=== PATIENT | female | born 1935 | race African-American/Black ===

== ENCOUNTER 2017-10-13 01:01 | Inpatient (IN) | payer OTHER ==
[~2017-10-13] VITALS: Ht 162.6 cm; Wt 68.0 kg
[2017-10-13] VITALS (8 sets, daily range): BP systolic 132–232; BP diastolic 54–127
--- NOTE | ~2017-10-13 | 2DMMODE ---
[facility] [address] [address] [facility] [place] [address] 2 D/M-MODE ECHOCARDIOGRAM Name: DIAHARLEEN David Room #: 364-P [facility] IN .R.#: [id number] Admission: 10/13/17 Attend Phys: Kevin Saucedo MD Discharge: Date of : 36 Date of Service: 10/14/17 1034 Report #: [id number] THIS REPORT FOR: //name// APPROVED REPORT Study performed: 10/13/2017 13:27:01 EXAM: Comprehensive 2D, Doppler, and color-flow Echocardiogram Patient Location: Bedside Room #: 364 Status: routine BSA: 1.73 HR: 80 bpm BP: 146/77 mmHg Other Information Study Quality: Adequate Indications Congestive Heart Failure Atrial Fibrillation Hypertension/HDD 2D Dimensions RVDd: 31.41 mm LVEF(%): 60.61 (>50%) IVSd: 12.61 (7-11mm) LVOT Diam: 17.75 (18-24mm) LVDd: 38.81 mm PWd: 11.42 (7-11mm) Ascending Ao: 29.85 (22-36mm) LVDs: 26.44 (25-40mm) Aortic Root: 29.32 mm IVC: 18.00 mm Wiggins's LVEF: 60.61 % Volumes Left Atrial Volume (Systole) Single Plane 4CH: 77.07 mL Single Plane 2CH: 37.59 mL LA ESV Index: 35.00 mL/m2 Aortic Valve AoV Peak Tono.: 1.44 m/s AO Peak Gr.: 8.30 mmHg LVOT Max P.95 mmHg LVOT Max V: 0.99 m/s SAMI Vmax: 1.71 cm2 Mitral Valve MV Decel. Time: 152.49 ms [facility] [place] [address] 2 D/M-MODE ECHOCARDIOGRAM Name: HARLEEN ALVARES David Room #: 364[facility] IN ..#: [id number] Admission: 10/13/17 Attend Phys: Kevin Saucedo MD Discharge: Date of : 36 Date of Service: 10/14/17 1034 Report #: [id number] E Max Tono.: 1.54 m/s Pulmonary Valve PV Peak Tono.: 1.09 m/s PV Peak Gr.: 4.73 mmHg Tricuspid Valve TR Peak Tono.: 2.95 m/s RAP Estimate: 5.00 mmHg TR Peak Gr.: 34.83 mmHg PA Pressure: 40.00 mmHg Left Ventricle The left ventricle is normal size. Mild concentric left ventricular hypertrophy. The left ventricular systolic function is normal. The left ventricular ejection fraction is within the normal range. LVEF is 60-65%. This study is not technically sufficient to allow evaluation of the LV diastolic function due to atrial fibrillation. Right Ventricle The right ventricle is normal size. The right ventricular systolic function is normal. Atria Left atrium is mildly dilated. Right atrium is mildly dilated. Aortic Valve The aortic valve is normal in structure. No aortic regurgitation is present. There is no aortic valvular stenosis. Mitral Valve The mitral valve is normal in structure. Moderate mitral regurgitation. No evidence of mitral valve stenosis. Tricuspid Valve The tricuspid valve is normal in structure. Mild tricuspid regurgitation. PAP is estimated at 40 mmHg. Pulmonic Valve Pulmonic valve is not well visualized. Mild pulmonic regurgitation. Great Vessels The aortic root is normal in size. IVC is normal in size and collapses >50% with inspiration. [facility] [address] [place] [address] 2 D/M-MODE ECHOCARDIOGRAM Name: HARLEEN ALVARES Room #: 364-P [facility] IN M.R.#: [id number] Admission: 10/13/17 Attend Phys: Kevin Saucedo MD Discharge: Date of : 36 Date of Service: 10/14/17 1034 Report #: [id number] Pericardium There is no pericardial effusion. <Conclusion> The left ventricle is normal size. Mild concentric left ventricular hypertrophy. LVEF is 60-65%. This study is not technically sufficient to allow evaluation of the LV diastolic function due to atrial fibrillation. Left atrium is mildly dilated. Right atrium is mildly dilated. There is no aortic valvular stenosis. Moderate mitral regurgitation. Mild tricuspid regurgitation. PAP is estimated at 40 mmHg. There is no pericardial effusion. <ELECTRONICALLY SIGNED> By: Jaylen Mcnulty MD, FACC 10/14/17 [phone] Jaylen Mcnulty MD, FACC /INF
--- NOTE | ~2017-10-13 | EKG ---
[address] [address] ELECTROCARDIOGRAM REPORT Name: HARLEEN ALVARES David Room #: 363-P ADM IN M.R.#: [id number] Admission: 10/13/17 Attend Phys: Kevin Saucedo MD Discharge: Date of : 36 Report #: [id number] THIS REPORT FOR: //name// 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
[~2017-10-13 01:01] MED LIST: EDARBYCLOR 40-1 EACH PO; HCTZ; LOTREL 10-20 M1 EACH PO; PHENERGAN 25 MG25 M1 PO; PROTONIX40 MG PO; ULTRAM 50MG TAB50 MG PO; ZOFRAN ODT4 MG PO
[2017-10-13 01:18] LABS: ABSOLUTE NEUTROPHILS 5.9 thou/uL (1.4-8.2); BASOPHILS 0.3 % (0.0-2.0); HEMATOCRIT 30.1 % (37.0-47.0); HEMOGLOBIN 10.4 gm/dL (12.0-15.0); LYMPHOCYTES 17.9 % (24.0-44.0); MCH 28.4 pg (26.0-34.0); MCHC 34.6 g/dL (28.0-37.0); MCV 82.1 fL (80.0-100.0); MONOCYTES 5.2 % (1.0-8.0); PLATELET COUNT 202 thou/uL (150-400); POLYS 75.6 % (36.0-66.0); RBC 3.66 mil/uL (4.20-5.00); RDW 15.6 % (10.5-14.5); WBC 7.8 thou/uL (4.0-11.0)
[2017-10-13] MEDS ORDERED: MUCINEX D ER 61 EACH PO (01:20)
[2017-10-13 01:26] LABS: ANION GAP 10 mmol/L (7-16); BUN 37 mg/dL (7-18); CALCIUM 9.8 mg/dL (8.5-10.1); CHLORIDE 98 mmol/L (98-107); CO2 32 mmol/L (21-32); GLUCOSE 145 mg/dL (74-106); POTASSIUM 3.1 mmol/L (3.5-5.1); SODIUM 140 mmol/L (136-145)
[2017-10-13 01:35] LABS: ALBUMIN 3.9 g/dL (3.4-5.0); LIPASE 255 U/L (73-393); SGOT 31 U/L (15-37); SGPT 46 U/L (30-65); TOTAL BILIRUBIN 0.6 mg/dL (<0.1-1.0); TOTAL PROTEIN 7.2 g/dL (6.4-8.2); TROPONIN-I < 0.04 ng/mL (<0.06)
[2017-10-13 02:03] LABS: URINE BILIRUBIN NEGATIVE (Negative); URINE BLOOD TRACE (Negative); URINE CLARITY CLEAR; URINE GLUCOSE-RANDOM* NEGATIVE (Negative); URINE KETONES NEGATIVE (Negative); URINE LEUKOCYTES-REFLEX NEGATIVE (Negative); URINE NITRITE-REFLEX NEGATIVE (Negative); URINE PROTEIN (DIPSTICK) TRACE (Negative); URINE UROBILINOGEN 0.2 E.U./dl (0.2-1.0)
[2017-10-13 02:04] LABS: URINE COLOR COLORLESS
[2017-10-13 07:44] LABS: CHOLESTEROL 224 mg/dL (<200); HDL CHOLESTEROL 76 mg/dL (>40); LDL CHOLESTEROL 136 mg/dL (<100); MAGNESIUM 1.9 mg/dL (1.8-2.4); TC:HDL 2.9 Ratio (Not establshd); TRIGLYCERIDE 62 mg/dL (<150); TROPONIN-I < 0.04 ng/mL (<0.06); VLDL 12 mg/dL (<40)
[2017-10-13 11:33] LABS: CALCIUM 9.4 mg/dL (8.5-10.1); CREATININE 1.8 mg/dL (0.6-1.0); POTASSIUM 3.1 mmol/L (3.5-5.1)
[2017-10-14 00:06] VITALS: BP 134/71
[2017-10-14 05:13] VITALS: BP 124/61
[2017-10-14 05:47] LABS: CREATININE 1.9 mg/dL (0.6-1.0); MAGNESIUM 1.9 mg/dL (1.8-2.4); POTASSIUM 3.3 mmol/L (3.5-5.1)
[2017-10-14 05:48] LABS: % SATURATION 20 % (20-39); IRON 47 ug/dL (50-170); TIBC 236 ug/dL (250-450)
[2017-10-14 06:15] LABS: FERRITIN 261 ng/mL (8-252)
[2017-10-14 08:17] VITALS: BP 172/82
[2017-10-14] MEDS ORDERED: DILTIAZEM 24HR180 M1 PO (09:05)
[2017-10-14] MEDS ORDERED: ELIQUIS2.5 MG PO (09:05)
[2017-10-14] MEDS ORDERED: METOPROLOL SUCC25 M1 PO (09:05)
[2017-10-14] MEDS ORDERED: LIPITOR 20 MG T20 M1 PO (09:05)
[2017-10-14 09:36] VITALS: BP 172/82
[2017-10-14 10:26] VITALS: BP 172/82
== END 2017-10-14 12:00 | disposition home or self-care (01) | DRG 308 ==
LOC: ER 01:01 → 3W 03:33 → EROBS 03:33 → 3W 04:12
PROVIDERS: Emergency Medicine; Hospitalist; Nurse Practitioner; Registered Nurse
DX: I48.0 Paroxysmal atrial fibrillation (principal); N17.0 Acute kidney failure with tubular necrosis; I16.1 Hypertensive emergency; I13.0 Hypertensive heart and chronic kidney disease with heart failure and stage 1 through stage 4 chronic kidney disease, or unspecified chronic kidney disease; I50.9 Heart failure, unspecified; G43.909 Migraine, unspecified, not intractable, without status migrainosus; K52.9 Noninfective gastroenteritis and colitis, unspecified; E87.6 Hypokalemia; J06.9 Acute upper respiratory infection, unspecified; Z66 Do not resuscitate; N18.9 Chronic kidney disease, unspecified; R16.0 Hepatomegaly, not elsewhere classified; E78.00 Pure hypercholesterolemia, unspecified; Z60.2 Problems related to living alone; D64.9 Anemia, unspecified; Z90.710 Acquired absence of both cervix and uterus; Z85.54 Personal history of malignant neoplasm of ureter; Z79.899 Other long term (current) drug therapy; Z88.8 Allergy status to other drugs, medicaments and biological substances; Z88.6 Allergy status to analgesic agent; Z87.891 Personal history of nicotine dependence
CPT/HCPCS: 10879

== ENCOUNTER 2017-12-06 08:05 | Inpatient (IN) | payer OTHER ==
[~2017-12-06] VITALS: Ht 162.6 cm; Wt 63.1 kg
--- NOTE | ~2017-12-06 | EKG ---
[place] [address] [facility] [place] [address] ELECTROCARDIOGRAM REPORT Name: HARLEEN ALVARES Room #: 350-P ADM IN M.R.#: [id number] Admission: 12/06/17 Attend Phys: Kevin Saucedo MD Discharge: Date of : 36 Report #: [id number] THIS REPORT FOR: //name// [facility] Test Date: 2017-12-08 Test Time: 07:55:19 Pat Name: HARLEEN ALVARES Department: Room: 350 P Gender: F [employer] Manager: ANNA : 1935 Requested By: Edwin Cornelius Order Number: [id number] MD: Walter Ibanez Measurements Intervals [place] Rate: 68 P: 54 [place]: 187 QRS: 28 QRSD: 75 T: 89 QT: 576 QTc: 613 Interpretive Statements Sinus rhythm Nonspecific ST and T wave abnormality Prolonged QT interval Compared to ECG 12/06/2017 08:26:27 Sinus rhythm has replaced atrial flutter Electronically Signed On 12-08-2017 8:14:11 FLOOR NURSE by Walter Ibanez [email or web address] <ELECTRONICALLY SIGNED> By: Walter Ibanez MD, [facility] 12/08/17 0814 [phone] Walter Ibanez MD, [facility] /EPI
--- NOTE | ~2017-12-06 | 2DMMODE ---
[facility] [address] [place] [address] 2 D/M-MODE ECHOCARDIOGRAM Name: HARLEEN ALVARES Room #: 350-P [facility] IN .R.#: [id number] Admission: 12/06/17 Attend Phys: Kevin Saucedo MD Discharge: Date of : 36 Date of Service: 12/07/17 1419 Report #: [id number] THIS REPORT FOR: //name// APPROVED REPORT Study performed: 12/07/2017 12:53:56 EXAM: Comprehensive 2D, Doppler, and color-flow Echocardiogram Patient Location: Bedside Room #: 350 Status: routine BSA: 1.68 HR: 62 bpm BP: 151/91 mmHg Other Information Study Quality: Good Indications Congestive Heart Failure Hypertension/HDD Stroke, Hx afib 2D Dimensions RVDd: 30.35 mm LVEF(%): 66.41 (>50%) IVSd: 12.84 (7-11mm) LVOT Diam: 19.53 (18-24mm) LVDd: 39.26 mm PWd: 12.61 (7-11mm) Ascending Ao: 31.45 (22-36mm) LVDs: 25.08 (25-40mm) Aortic Root: 30.38 mm IVC: 13.00 mm Wiggins's LVEF: 66.41 % Volumes Left Atrial Volume (Systole) Single Plane 4CH: 59.63 mL Single Plane 2CH: 88.79 mL LA ESV Index: 46.00 mL/m2 Aortic Valve AoV Peak Tono.: 1.19 m/s AO Peak Gr.: 5.71 mmHg LVOT Max P.25 mmHg LVOT Max V: 0.90 m/s SAMI Vmax: 2.26 cm2 Mitral Valve E/A Ratio: 2.8 [facility] [place] [address] 2 D/M-MODE ECHOCARDIOGRAM Name: HARLEEN ALVARES Room #: [address] [place] [address] IN M.R.#: [id number] Admission: 12/06/17 Attend Phys: Kevin Saucedo MD Discharge: Date of : 36 Date of Service: 12/07/17 1419 Report #: [id number] MV Decel. Time: 204.33 ms MV E Max Tono.: 1.19 m/s MV A Tono.: 0.42 m/s MV PHT: 59.26 ms IVRT: 93.43 ms Pulmonary Valve PV Peak Tono.: 0.84 m/s PV Peak Gr.: 2.85 mmHg Pulmonary Vein P Vein S: 0.30 m/s P Vein A: 0.15 m/s P Vein D: 0.46 m/s P Vein A Dur.: 106.1 msec P Vein S/D Ratio: 0.65 Tricuspid Valve TR Peak Tono.: 2.60 m/s RAP Estimate: 5.00 mmHg TR Peak Gr.: 27.00 mmHg PA Pressure: 32.00 mmHg Left Ventricle The left ventricle is normal size. Mild concentric left ventricular hypertrophy. Left ventricular systolic function is normal. LVEF is 50-55%. Transmitral Doppler flow pattern suggests restrictive physiology. Right Ventricle The right ventricle is normal size. The right ventricular systolic function is normal. Atria Left atrium is moderately dilated. No shunting by contrast bubble injection. Right atrium is dilated. Aortic Valve The aortic valve is normal in structure. No aortic regurgitation is present. There is no aortic valvular stenosis. Mitral Valve The mitral valve is normal in structure. Moderate mitral regurgitation. No evidence of mitral valve stenosis. Tricuspid Valve The tricuspid valve is normal in structure. Mild to moderate tricuspid regurgitation. PAP is estimated at 32 mmHg. Pulmonic Valve [address] [address] 2 D/M-MODE ECHOCARDIOGRAM Name: HARLEEN ALVARES Room #: 350-P [facility] IN ..#: [id number] Admission: 12/06/17 Attend Phys: Kevin Saucedo MD Discharge: Date of : 36 Date of Service: 12/07/17 1419 Report #: [id number] The pulmonary valve is normal in structure. Mild pulmonic regurgitation. Great Vessels The aortic root is normal in size. IVC is normal in size and collapses >50% with inspiration. Pericardium There is no pericardial effusion. <Conclusion> Left ventricular systolic function is normal. LVEF is 50-55%. Transmitral Doppler flow pattern suggests restrictive physiology. Left atrium is moderately dilated. No shunting by contrast bubble injection. The aortic valve is normal in structure. No aortic valvular stenosis or insufficiency. The mitral valve is normal in structure. Moderate mitral regurgitation. Mild to moderate tricuspid regurgitation. Pulmonary artery pressure estimated at 32 mmHg. There is no pericardial effusion. <ELECTRONICALLY SIGNED> By: Walter Ibanez MD, FACC 12/07/17 1419 1419 141 Walter Ibanez MD, FACC /INF
--- NOTE | ~2017-12-06 | EKG ---
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: [facility] : 1935 Requested By: Cm Manley Order Number: [id number] MD: Walter Ibanez Measurements Intervals [place] Rate: 101 P: [place]: QRS: 38 QRSD: 86 T: 225 QT: 333 QTc: 432 Interpretive Statements Atrial flutter with predominant 3:1 AV block Borderline repolarization abnormality Compared to ECG 10/13/2017 01:10:53 ST segment abnormality is less pronounced Electronically Signed On 12-06-2017 15:31:48 STORE TEAM MEMBER by Walter Ibanez [email or web address] <ELECTRONICALLY SIGNED> By: Walter Ibanez MD, [facility] 12/06/17 1531 5 5 Walter Ibanez MD, [facility] /EPI
--- NOTE | ~2017-12-06 | HC ---
[facility] [place] [address] CONSULTATION Name: HARLEEN ALVARES Room #: 350-P [facility] IN M.R.#: [id number] Admission: 12/06/17 Attend Phys: Kevin Saucedo MD Discharge: 12/09/17 Date of : 36 Report #: [id number] THIS REPORT FOR: //name// [facility] DATE OF SERVICE: 12/06/2017 HISTORY OF PRESENT ILLNESS: This is an 82-year-old female patient who was initially evaluated by me in the Emergency Room and subsequently was evaluated by me on the floor. This patient was discussed with the Emergency Room physician and the history the patient and the family provides is that around midnight last night, she had an acute onset of visual disturbances as well as some numbness and weakness on the left upper and left lower extremity. It came suddenly and spontaneously. No trauma was associated with it and the symptoms were at least moderately severe. This patient decided not to present to the Emergency Room that time, but subsequently decided to come to the Emergency Room. She decided to come to the Emergency Room when the patient did not become any better. REVIEW OF SYSTEMS: Indicate that this patient has a history of atrial fibrillation. She follows up with Dr. Mcnulty. She was prescribed Eliquis by Dr. Mcnulty, but the patient stopped taking that a long time ago because she indicated that she was bleeding from her teeth and that is the reason she stopped it. She is not complaining of any significant cardiac symptoms at the moment. To me at least she said she is not having any significant headache. Review of systems otherwise does not indicate any clinical stroke. She does have what looks like increased BUN and creatinine and her GFR is only 31. When she came in, her troponin was elevated, but she was not having any cardiac symptoms. Her 14-point review of system was carried out and was the relevant 14-point review of system in this patient. PAST MEDICAL HISTORY: Negative for any clinical CVA. FAMILY HISTORY: Negative for early age CVA. SOCIAL HISTORY: This patient has multiple members present. She has a history of smoking in the past and she does not use any alcohol. PHYSICAL EXAMINATION: Indicate she is alert. She is responsive. She can follow simple command. Her speech, concentration, fund of knowledge is at her baseline. Cranial nerve examinations 2-12 indicate that she has a pretty significant hemianopsia. Her strength on the left side looks unremarkable. She has a subjective decrease in pinprick. Her tone is symmetrical. She just does not coordinate very well on the left side. I tried to look at the fundus, but could not. There is no carotid bruit in this patient. Cardiac examinations [facility] [address] [place] [address] CONSULTATION Name: HARLEEN ALVARES Room #: 350-P [facility] IN M.R.#: [id number] Admission: 12/06/17 Attend Phys: Kevin Saucedo MD Discharge: 12/09/17 Date of : 36 Report #: [id number] indicate the patient has a history of atrial fibrillation and her EKG actually has shown atrial flutter. There is no respiratory difficulty. Her vital signs are mostly maintained with a blood pressure fluctuating to some extent and that was at 165/85, pulse was 91. Temperature was 98.1. I reviewed the patient's MRI. MRI does demonstrate an acute stroke on the right side, which will be correlating with the left-sided symptoms. IMPRESSION: 1. Cerebrovascular accident probably secondary to embolization from the heart. 2. Atrial fibrillation and flutter, probably causing the embolization. 3. Dense hemianopsia. RECOMMENDATIONS: This patient is not an intervention candidate. Her symptoms occurred at midnight and she is outside the TPA window. There is nothing to do with the thrombectomy on in this patient and therefore, she is not a candidate for thrombectomy. Main question is what to do with her anticoagulation. She is concerned with the bleeding from the teeth and she indicates that her 6 teeth need to be pulled. I discussed the patient with Dr. Medley who is covering for Dr. Mcnulty and we will put a consult with them and to address the question of anticoagulation. Her stroke is small and we should be able to anticoagulate earlier if necessary. I think we can wait for about 3 days and then anticoagulate at that time. The other possibility is that this patient's stroke is because of small vessel disease, but from symptom, it looks more like embolization and we should presume that it is because of embolization from heart. She will need an ophthalmology evaluation some time. I do not know if any brake operator heavy duty comes here or not. I will send a sed rate to exclude any chance of vasculitis. Presently, she appeared to be stable from cardiac perspective, but we need to address the question of anticoagulation in this patient over the long-term basis and she should follow up with electronics installer as an outpatient. I had an extensive discussion with the family and I discussed with them their options and all the above things, which has been summarized. They are agreeable with the plan. I suspect this patient is also going to need rehabilitation. This patient with a basal ganglion stroke can sometime become worse for the first 2-3 days and we will look for any worsening. Nothing can be done about that. Even with the present deficit, she will need a rehab and we will consult rehab physicians in that regard. More than 50 minutes of time was spent taking care of this patient today and majority of that time was spent counseling the family and the patient on above matters and coordinating her care. [facility] [address] [place] [address] CONSULTATION Name: HARLEEN ALVARES Room #: 350-P [facility] IN M.R.#: [id number] Admission: 12/06/17 Attend Phys: Kevin Saucedo MD Discharge: 12/09/17 Date of : 36 Report #: [id number] Thank you very much for this referral and if you have any questions, please feel free to contact me. <ELECTRONICALLY SIGNED> By: Hema Li MD 12/10/17 1145 1640 1908 Hema Li MD /nt
--- NOTE | ~2017-12-06 | HC ---
[facility] [address] [address] CONSULTATION Name: HARLEEN ALVARES Room #: 350-[facility] IN M.R.#: [id number] Admission: 12/06/17 Attend Phys: Kevin Saucedo MD Discharge: 12/09/17 Date of : 36 Report #: [id number] THIS REPORT FOR: //name// CC: Kevin Bustos [facility] DATE OF SERVICE: 12/07/2017 HISTORY OF PRESENT ILLNESS: An 82-year-old -[place] female admitted with left-sided weakness. She has a history of atrial fibrillation, but she was not taking her Eliquis secondary to pending dental work. Upon admission, she was diagnosed with an acute right basal ganglia CVA per MRI. Neurology has been involved. They noted some hemianopsia. She notes the left-sided numbness, weakness, continues. We are seeing her in rehabilitation medicine consultation. PAST MEDICAL HISTORY: Includes hypertension, atrial fibrillation, CHF, migraine, history of cataracts, uterine cancer with hysterectomy. PAST SURGICAL HISTORY: As noted above. MEDICATIONS: Please see the full medication listing. FAMILY HISTORY: Not pertinent. ALLERGIES: CODEINE, IODINE, MORPHINE, MEPERIDINE. SOCIAL HISTORY: House with significant other. Did not utilize gait aids. There is a railing of stairs. Sisters use to stay with her. She has involved family. HABITS: Tobacco abuse, but no use for greater than a year. REVIEW OF SYSTEMS: Did not offer any current complaints of chest pain, shortness of breath or abdominal discomfort. No focal extremity pain complaints. PHYSICAL EXAMINATION: GENERAL: An 82-year-old -[place] female, in no obvious distress. VITAL SIGNS: Last recorded temperature 98.6, pulse 86, respirations 16, blood pressure 151/91. NEUROLOGIC: She is alert, pleasant. Facies revealed some prior surgical scar, left lower face and lips. EOMs appeared to be full. She may have some left hemianopsia, but did reasonably well with visual field confrontation. EOMs appeared to be full. Functional range of motion of both upper extremities. She does have decreased coordination of the left upper extremity with agxtmt-gh-afec and fine finger dexterity. Strength is grade 4 to 4-/5 in the left compared to [facility] [address] [place] [address] CONSULTATION Name: HARLEEN ALVARES Room #: [facility] IN M.R.#: [id number] Admission: 12/06/17 Attend Phys: Kevin Saucedo MD Discharge: 12/09/17 Date of : 36 Report #: [id number] 4 to 4+ on the right. Left lower extremity is probably a grade 4 to 4- compared to the right, which is more of 4 to 4+. There is no clonus. Negative Rosas's. Sensory exam is reasonably intact to simultaneous stimulation. She is contact guard for sit to stand. She was mod assist for pericare and OT as well as mod assist for toilet transfers with decreased balance noted. ASSESSMENT: An 82-year-old female with following problems: 1. Right basal ganglia cerebrovascular accident. 2. Left hemiparesis. 3. Left hemianopsia, which appears better. 4. Balance deficits with functional mobility and ADL deficits. 5. Atrial fibrillation. 6. Hypertension. 7. Chronic kidney disease. 8. Elevated troponin. Cardiology is involved. EKG without acute abnormalities. 9. Hypokalemia. PLAN: The patient is a candidate for an acute in-hospital inpatient rehabilitation stay. The plan to transfer to the acute inpatient rehabilitation samson with medically cleared in a bed available. <ELECTRONICALLY SIGNED> By: Drake Contreras MD 12/15/17 1510 1247 0514 Drake Contreras MD /[facility]
[~2017-12-06 08:05] MED LIST changes: +DILTIAZEM 24HR180 M1 PO; +ELIQUIS2.5 MG PO; +LIPITOR 20 MG T20 M1 PO; +METOPROLOL SUCC25 M1 PO; +MUCINEX D ER 61 EACH PO
[2017-12-06 08:07] VITALS: BP 209/98
[2017-12-06] MEDS ORDERED: DILTIAZEM ER360 MG PO (08:12)
[2017-12-06 08:17] LABS: ABSOLUTE NEUTROPHILS 4.1 thou/uL (1.4-8.2); BASOPHILS 0.6 % (0.0-2.0); EOSINOPHILS 1.4 % (0.0-3.0); HEMATOCRIT 36.1 % (37.0-47.0); HEMOGLOBIN 12.3 gm/dL (12.0-15.0); LYMPHOCYTES 24.5 % (24.0-44.0); MCH 27.6 pg (26.0-34.0); MCHC 34.1 g/dL (28.0-37.0); MCV 81.2 fL (80.0-100.0); MONOCYTES 8.7 % (1.0-8.0); PLATELET COUNT 210 thou/uL (150-400); POLYS 64.8 % (36.0-66.0); RBC 4.45 mil/uL (4.20-5.00); RDW 16.3 % (10.5-14.5); WBC 6.4 thou/uL (4.0-11.0)
[2017-12-06 08:29] LABS: ANION GAP 10 mmol/L (7-16); BUN 27 mg/dL (7-18); CHLORIDE 99 mmol/L (98-107); CO2 31 mmol/L (21-32); CREATININE 1.9 mg/dL (0.6-1.0); GLUCOSE 120 mg/dL (74-106); POTASSIUM 3.4 mmol/L (3.5-5.1); SODIUM 140 mmol/L (136-145)
[2017-12-06 08:35] LABS: APTT 22.7 Seconds (24.5-32.8); PROTIME 10.4 Seconds (9.3-11.4)
[2017-12-06 08:38] LABS: ALBUMIN 4.1 g/dL (3.4-5.0); MAGNESIUM 2.1 mg/dL (1.8-2.4); SGOT 42 U/L (15-37); SGPT 83 U/L (30-65); TOTAL BILIRUBIN 0.7 mg/dL (<0.1-1.0); TOTAL PROTEIN 7.7 g/dL (6.4-8.2)
[2017-12-06 08:41] LABS: TROPONIN-I 1.56 ng/mL (<0.06)
[2017-12-06] MEDS ORDERED: EDARBYCLOR 40-1 EACH PO (09:31)
[2017-12-06 12:31] VITALS: BP 165/85
[2017-12-06 12:50] VITALS: BP 189/96
[2017-12-06 12:50] LABS: URINE BILIRUBIN NEGATIVE (Negative); URINE BLOOD NEGATIVE (Negative); URINE CLARITY CLEAR; URINE COLOR YELLOW; URINE GLUCOSE-RANDOM* NEGATIVE (Negative); URINE KETONES NEGATIVE (Negative); URINE LEUKOCYTES-REFLEX NEGATIVE (Negative); URINE NITRITE-REFLEX NEGATIVE (Negative); URINE PROTEIN (DIPSTICK) 1+ (Negative); URINE UROBILINOGEN 0.2 E.U./dl (0.2-1.0)
[2017-12-06 13:04] LABS: CASTS None Seen /LPF (None Seen); SQUAMOUS 0-3 Few /LPF (0-3); URINE RBC 0-2 Rare /HPF (0-2); URINE WBC-REFLEX 0-5 Rare /HPF (0-5)
[2017-12-06 13:05] LABS: BACTERIA-REFLEX None Seen /HPF (None Seen); CRYSTALS None Seen /LPF (None Seen)
[2017-12-06 13:12] LABS: AMP/METHAMP Negative (Negative); BARBITURATES Negative (Negative); BENZODIAZEPINES Negative (Negative); COCAINE Negative (Negative); METHADONE Negative (Negative); OPIATES Negative (Negative); PCP Negative (Negative)
[2017-12-06 17:42] VITALS: BP 145/74
[2017-12-06 19:40] VITALS: BP 149/94
[2017-12-06 20:20] VITALS: BP 149/94
[2017-12-07 03:45] VITALS: BP 133/81
[2017-12-07 05:15] LABS: CHOLESTEROL 165 mg/dL (<200); HDL CHOLESTEROL 66 mg/dL (>40); LDL CHOLESTEROL 84 mg/dL (<100); TC:HDL 2.5 Ratio (Not establshd); TRIGLYCERIDE 75 mg/dL (<150); VLDL 15 mg/dL (<40)
[2017-12-07 05:16] LABS: SERUM ASSESSMENT Clear
[2017-12-07 08:18] LABS: CALCIUM 9.5 mg/dL (8.5-10.1); CREATININE 1.8 mg/dL (0.6-1.0); HEMATOCRIT 34.4 % (37.0-47.0); HEMOGLOBIN 11.7 gm/dL (12.0-15.0); MCH 27.9 pg (26.0-34.0); MCV 82.1 fL (80.0-100.0); RBC 4.2 mil/uL (4.20-5.00); RDW 15.8 % (10.5-14.5); WBC 6.4 thou/uL (4.0-11.0)
[2017-12-07 08:20] LABS: POTASSIUM 2.8 mmol/L (3.5-5.1)
[2017-12-07 08:27] VITALS: BP 151/91
[2017-12-07 16:50] VITALS: BP 149/71
[2017-12-07 20:15] VITALS: BP 131/72
[2017-12-08] VITALS (8 sets, daily range): BP systolic 153–185; BP diastolic 72–97
[2017-12-08 08:23] LABS: HEMATOCRIT 32.5 % (37.0-47.0); HEMOGLOBIN 11.1 gm/dL (12.0-15.0); MCH 28.1 pg (26.0-34.0); MCHC 34.3 g/dL (28.0-37.0); MCV 82.1 fL (80.0-100.0); RBC 3.95 mil/uL (4.20-5.00); RDW 16.4 % (10.5-14.5); WBC 6.8 thou/uL (4.0-11.0)
[2017-12-08 08:28] LABS: CALCIUM 9.4 mg/dL (8.5-10.1); CREATININE 1.9 mg/dL (0.6-1.0); POTASSIUM 3.5 mmol/L (3.5-5.1)
[2017-12-08 08:37] LABS: ALBUMIN 3.5 g/dL (3.4-5.0); MAGNESIUM 2.1 mg/dL (1.8-2.4); TOTAL BILIRUBIN 0.7 mg/dL (<0.1-1.0); TOTAL PROTEIN 6.8 g/dL (6.4-8.2); TROPONIN-I 0.45 ng/mL (<0.06)
[2017-12-09] VITALS: BP 151/79
[2017-12-09 04:00] VITALS: BP 160/77
[2017-12-09 08:56] VITALS: BP 188/98
[2017-12-09 09:00] LABS: HEMATOCRIT 30.6 % (37.0-47.0); HEMOGLOBIN 10.8 gm/dL (12.0-15.0); MCH 28.7 pg (26.0-34.0); MCHC 35.1 g/dL (28.0-37.0); MCV 81.6 fL (80.0-100.0); RBC 3.75 mil/uL (4.20-5.00); RDW 16.1 % (10.5-14.5); WBC 5.6 thou/uL (4.0-11.0)
[2017-12-09 09:14] LABS: CALCIUM 9.4 mg/dL (8.5-10.1); CREATININE 1.9 mg/dL (0.6-1.0); POTASSIUM 3.4 mmol/L (3.5-5.1)
[2017-12-09 11:25] VITALS: BP 176/90
[2017-12-09 16:15] VITALS: BP 142/82
[2017-12-09 16:21] VITALS: BP 142/82
[2017-12-09] MEDS ORDERED: BYSTOLIC10 MG PO (21:04)
[2017-12-09] MEDS ORDERED: COZAAR100 MG PO (21:04)
[2017-12-09] MEDS ORDERED: TYLENOL325 MG PO (21:04)
[2017-12-09] MEDS ORDERED: EDARBYCLOR 40-1 EACH PO (23:29)
[2017-12-10] MEDS ORDERED: EDARBYCLOR 40-1 EACH PO (12:11)
== END 2017-12-09 22:30 | DRG 65 ==
LOC: ER 08:05 → EROBS 09:18 → 3W 09:18
PROVIDERS: Emergency Medicine; Internal Medicine; Psychiatry & Neurology Neuromuscular Medicine
DX: I63.40 Cerebral infarction due to embolism of unspecified cerebral artery (principal); I13.0 Hypertensive heart and chronic kidney disease with heart failure and stage 1 through stage 4 chronic kidney disease, or unspecified chronic kidney disease; I48.92 Unspecified atrial flutter; G81.94 Hemiplegia, unspecified affecting left nondominant side; G43.909 Migraine, unspecified, not intractable, without status migrainosus; E87.6 Hypokalemia; I48.2 Chronic atrial fibrillation; F41.9 Anxiety disorder, unspecified; N18.3 Chronic kidney disease, stage 3 (moderate); R56.9 Unspecified convulsions; I50.9 Heart failure, unspecified; H53.462 Homonymous bilateral field defects, left side; Z79.899 Other long term (current) drug therapy; Z90.710 Acquired absence of both cervix and uterus; Z98.49 Cataract extraction status, unspecified eye; Z88.5 Allergy status to narcotic agent; Z88.8 Allergy status to other drugs, medicaments and biological substances; Z88.6 Allergy status to analgesic agent; Z91.041 Radiographic dye allergy status; Z91.09 Other allergy status, other than to drugs and biological substances; Z91.19 Patient's noncompliance with other medical treatment and regimen
CPT/HCPCS: 10779

== ENCOUNTER 2017-12-09 16:45 | Inpatient (IN) | payer OTHER ==
[~2017-12-09] VITALS: Ht 162.6 cm; Wt 67.6 kg
--- NOTE | ~2017-12-09 | PLAN ---
[facility] [address] REHAB UNIT PLAN OF CARE Name: HARLEEN ALVARES Room #: 509-P ADM IN M.R.#: [id number] Admission: 12/09/17 Attend Phys: Drake Contreras MD Discharge: Date of : 36 Report #: [id number] THIS REPORT FOR: //name// CC: Drake DotyLopez DATE OF SERVICE: 12/11/2017 SUBJECTIVE: The patient is seen back today in followup. She is in no distress. Last recorded temperature 36.9, pulse 70, respirations 18, blood pressure 185/89. She is alert. She has some sensory changes, left lower extremity, which have been previously noted. No focal neurologic change on exam. No focal calf swelling. Transfers are contact guard with gait, min assist to 100 feet with a front-wheeled walker. Occupational therapy, lower body dressing is min assist. In speech therapy, she has mild comprehensive deficits. ASSESSMENT: 1. Right basal ganglia CVA. 2. Left hemiparesis. 3. Left hemianopsia. 4. Atrial fibrillation. 5. Balance deficits with functional mobility and ADL deficits. 6. Hypertension. 7. Chronic kidney disease. PLAN: The overall plan of care is based on the preadmission screen, post-admission physician evaluation and information garnered from therapy assessments. 1. Estimated length of stay is probably 10 days to 2 weeks. 2. Medical prognosis is reasonably good. 3. Anticipated interventions includes the interdisciplinary acute inpatient rehabilitation program with goal of maximizing the patient's functional independence, so she can hopefully return back to her prior living situation. We will have PT, OT involved, speech therapy, rehab nursing assisting regarding medication management, skin care prophylaxis, bowel and bladder issues, and nursing education. The advertising sales consultant physicians will continue to follow as well. 4. Anticipated functional outcomes would be for her to become modified, independent. Hopefully, at least at the walker level, so that she can return back to the home setting. 5. Discharge destination would be back home with her significant other. 6. Expected therapy by discipline would include PT and OT and speech 1 hour per [facility] [address] [place] [address] REHAB UNIT PLAN OF CARE Name: HARLEEN ALVARES Room #: 509-P [facility] IN ..#: [id number] Admission: 12/09/17 Attend Phys: Drake Contreras MD Discharge: Date of : 36 Report #: [id number] day each 5 days a week throughout the duration of the acute inpatient rehabilitation stay. <ELECTRONICALLY SIGNED> By: Drake Contreras MD 12/15/17 1510 1105 1907 Drake Contreras MD /PMT
--- NOTE | ~2017-12-09 | H ---
[facility] [place] [address] HISTORY AND PHYSICAL Name: HARLEEN ALVARES Room #: 509-P ADM IN M.R.#: [id number] Admission: 12/09/17 Attend Phys: Drake Contreras MD Discharge: Date of : 36 Report #: [id number] THIS REPORT FOR: //name// CC: Drake Church DATE OF SERVICE: 12/10/2017 HISTORY AND PHYSICAL/POST-ADMISSION PHYSICIAN EVALUATION HISTORY OF PRESENT ILLNESS: The patient is an 82-year-old -Czech female originally admitted to [facility] on 12/06/2017 with left-sided weakness. She has a history of atrial fibrillation, but she was not taking her Eliquis secondary to pending dental work. Upon admission, she was diagnosed with an acute right basal ganglia CVA per MRI. Neurology was involved as well as Cardiology. She was noted to have some hemianopsia and some left-sided numbness and weakness. Neurology indicated the CVA was secondary to embolization from the heart because of noncompliance. They recommended continuing the anticoagulation. She has had a functional decline with her CVA and has been admitted now for acute in-hospital inpatient rehabilitation. PAST MEDICAL HISTORY: Includes hypertension, atrial fibrillation, CHF, migraine, history of cataracts, uterine cancer with hysterectomy. PAST SURGICAL HISTORY: As noted above. MEDICATIONS: Please see the full medication listing. Each of these was individually reconciled upon admission and includes vitamins, herbals, and supplements. FAMILY HISTORY: Noncontributory. ALLERGIES: CODEINE, IODINE, MORPHINE, AND MEPERIDINE. SOCIAL HISTORY: Lives in a house with significant other, did not utilize gait aids. There is a railing on the stairs. She does have involved family. HABITS: Tobacco abuse, but no use greater than a year. REVIEW OF SYSTEMS: No current complaints of chest pain, shortness of breath, or abdominal discomfort. PHYSICAL EXAMINATION: GENERAL: An 82-year-old -Czech female in no obvious distress. VITAL SIGNS: Last recorded temperature 98.3, pulse 64, respirations 18, blood pressure 163/84. [facility] [address] [place] [address] HISTORY AND PHYSICAL Name: HARLEEN ALVARES Room #: 509-P [facility] IN .R.#: [id number] Admission: 12/09/17 Attend Phys: Drake Contreras MD Discharge: Date of : 36 Report #: [id number] HEENT: Appeared to be benign. Cranial nerves are grossly intact. Facies are symmetric. CHEST: Sounded clear to auscultation. CARDIOVASCULAR: Regular rate and rhythm. ABDOMEN: Bowel sounds positive, nontender. GENITOURINARY AND RECTAL: Deferred. NEUROLOGICAL: She may have some mild left hemianopsia. EOMs appeared to be full. EXTREMITIES: Functional range of motion of the upper extremities. Strength is grade 4 to 4-/5 on the left compared 4-4+ on the right. Left lower extremity is probably a grade 4 to 4- compared to the right, which is a 4-4+. She does have the sensation of decreased feeling of the left lower extremity, although was reasonably intact to simultaneous stimulation. There was no clonus. Functionally, she is standby assistance with transfers and short distance ambulation. Needing assistance with dressing activities and OT. IMPRESSION: An 82-year-old right-handed -Czech female with the following problem list: 1. Right basal ganglia cerebrovascular accident. 2. Left hemiparesis. 3. Left hemianopsia, which appears better. 4. Atrial fibrillation. 5. Balance deficits with functional mobility and ADL deficits. 6. Hypertension. 7. Chronic kidney disease. PLAN: The patient is admitted for acute in-hospital inpatient rehabilitation. From a postadmission physician evaluation perspective, there are no relevant changes since the preadmission screening. Please see the above review of prior and current medical and functional conditions and comorbidities. Please see the patient's previous and current functional status. As far as risk of complications, there are multiple medical comorbidities as noted above. Initial plan of care involves the interdisciplinary acute inpatient rehabilitation program with the goal of maximizing the patient's functional independence, so that she can hopefully return back to her prior living situation. Measurable functional goals would be for the patient to become modified independent with transfers, mobility and ADLs so she could return back to the home setting. Prognosis is reasonably good with estimated length of stay probably fairly short may be around 7-10 days, pending progress. Potential barriers would include her multiple medical comorbidities and decreased functional status. The patient meets diagnostic criteria for an acute in-hospital inpatient rehabilitation stay. She meets medical necessity criteria and we will have the mergers and acquisitions consultant physicians continue to follow while she is on the rehab samson. She [address] [address] HISTORY AND PHYSICAL Name: HARLEEN ALVARES Room #: 509-P ADM IN M.R.#: [id number] Admission: 12/09/17 Attend Phys: Drake Contreras MD Discharge: Date of : 36 Report #: [id number] does have the tolerance for therapies and has appropriate discharge goals back to the home setting. <ELECTRONICALLY SIGNED> By: Drake Contreras MD 12/15/17 1510 0816 0837 Drake Cnotreras MD /[facility]
[~2017-12-09 16:45] MED LIST changes: +DILTIAZEM ER360 MG PO
[2017-12-09] MEDS ORDERED: TYLENOL325 MG PO (21:04)
[2017-12-09] MEDS ORDERED: COZAAR100 MG PO (21:04)
[2017-12-09] MEDS ORDERED: BYSTOLIC10 MG PO (21:04)
[2017-12-09 22:38] VITALS: BP 163/84
[2017-12-09] MEDS ORDERED: EDARBYCLOR 40-1 EACH PO (23:29)
[2017-12-10 06:57] LABS: HEMATOCRIT 32.4 % (37.0-47.0); HEMOGLOBIN 11.1 gm/dL (12.0-15.0); MCH 27.8 pg (26.0-34.0); MCHC 34.3 g/dL (28.0-37.0); MCV 80.9 fL (80.0-100.0); RDW 15.8 % (10.5-14.5); WBC 4.9 thou/uL (4.0-11.0)
[2017-12-10 07:10] LABS: CALCIUM 9.3 mg/dL (8.5-10.1); CREATININE 1.9 mg/dL (0.6-1.0); POTASSIUM 3.3 mmol/L (3.5-5.1)
[2017-12-10 07:40] VITALS: BP 163/92
[2017-12-10] MEDS ORDERED: EDARBYCLOR 40-1 EACH PO (12:11)
[2017-12-10 19:58] VITALS: BP 133/66
[2017-12-11 05:56] LABS: HEMATOCRIT 30.1 % (37.0-47.0); HEMOGLOBIN 10.3 gm/dL (12.0-15.0); MCH 28.1 pg (26.0-34.0); MCHC 34.4 g/dL (28.0-37.0); MCV 81.9 fL (80.0-100.0); RBC 3.68 mil/uL (4.20-5.00); RDW 16.1 % (10.5-14.5); WBC 4.9 thou/uL (4.0-11.0)
[2017-12-11 06:06] LABS: CALCIUM 9.3 mg/dL (8.5-10.1); CREATININE 1.8 mg/dL (0.6-1.0); POTASSIUM 3.4 mmol/L (3.5-5.1)
[2017-12-11 08:00] VITALS: BP 185/89
[2017-12-11 20:31] VITALS: BP 187/81
[2017-12-12 04:08] LABS: HEMATOCRIT 30.3 % (37.0-47.0); HEMOGLOBIN 10.5 gm/dL (12.0-15.0); MCH 28.3 pg (26.0-34.0); MCHC 34.5 g/dL (28.0-37.0); RBC 3.69 mil/uL (4.20-5.00); RDW 16.4 % (10.5-14.5); WBC 6.5 thou/uL (4.0-11.0)
[2017-12-12 04:16] LABS: CALCIUM 9.3 mg/dL (8.5-10.1); CREATININE 1.8 mg/dL (0.6-1.0); MAGNESIUM 2.1 mg/dL (1.8-2.4)
[2017-12-12 08:00] VITALS: BP 153/64
[2017-12-12 19:05] VITALS: BP 153/82
[2017-12-13 09:00] VITALS: BP 178/98
[2017-12-13 10:56] VITALS: BP 165/88
[2017-12-13 19:55] VITALS: BP 145/68
[2017-12-14 07:30] VITALS: BP 179/95
[2017-12-14 13:00] VITALS: BP 176/87
[2017-12-14 19:56] VITALS: BP 160/72
[2017-12-14 22:31] VITALS: BP 141/69
[2017-12-15 08:15] VITALS: BP 176/86
[2017-12-15 11:12] VITALS: BP 181/88
[2017-12-15 19:30] VITALS: BP 144/63
[2017-12-16 07:30] VITALS: BP 176/74
[2017-12-16 16:29] VITALS: BP 138/69
[2017-12-16 21:22] VITALS: BP 160/82
[2017-12-17 07:05] VITALS: BP 150/70
[2017-12-17] MEDS ORDERED: MIRALAX17 GM PO (10:01)
[2017-12-17] MEDS ORDERED: HYDRALAZINE 2525 MG PO (10:01)
[2017-12-17] MEDS ORDERED: COLACE100 MG PO (10:01)
[2017-12-17] MEDS ORDERED: IRON325 PO (10:01)
[2017-12-17] MEDS ORDERED: B-12500 MCG PO (10:01)
[2017-12-17] MEDS ORDERED: VITAMIN D1000 UNI1 PO (10:01)
[2017-12-17] MEDS ORDERED: TYLENOL325 MG PO (10:01)
[2017-12-17 10:18] VITALS: BP 150/70
[2017-12-17 10:21] VITALS: BP 150/70
== END 2017-12-17 14:30 | disposition home health service (06) | DRG 65 ==
LOC: ENTRNSPT 12-17 14:22 → EDTRNSPTSTS 12-17 14:26
PROVIDERS: Physical Medicine & Rehabilitation
DX: I63.9 Cerebral infarction, unspecified (principal); G81.94 Hemiplegia, unspecified affecting left nondominant side; I13.0 Hypertensive heart and chronic kidney disease with heart failure and stage 1 through stage 4 chronic kidney disease, or unspecified chronic kidney disease; I48.91 Unspecified atrial fibrillation; H53.47 Heteronymous bilateral field defects; I50.9 Heart failure, unspecified; G43.909 Migraine, unspecified, not intractable, without status migrainosus; R53.81 Other malaise; R07.9 Chest pain, unspecified; D64.9 Anemia, unspecified; E87.6 Hypokalemia; N18.3 Chronic kidney disease, stage 3 (moderate); Z91.19 Patient's noncompliance with other medical treatment and regimen; Z90.710 Acquired absence of both cervix and uterus; Z85.42 Personal history of malignant neoplasm of other parts of uterus; Z98.49 Cataract extraction status, unspecified eye; Z88.6 Allergy status to analgesic agent; Z91.041 Radiographic dye allergy status; E53.8 Deficiency of other specified B group vitamins; E55.9 Vitamin D deficiency, unspecified; Z66 Do not resuscitate
CPT/HCPCS: 10112

== ENCOUNTER 2018-09-24 03:58 | Inpatient (IN) | payer OTHER ==
[~2018-09-24] VITALS: Ht 162.6 cm; Wt 68.4 kg
[2018-09-24] VITALS (7 sets, daily range): BP systolic 126–163; BP diastolic 67–88
--- NOTE | ~2018-09-24 | 2DMMODE ---
[facility] [address] [place] [address] 2 D/M-MODE ECHOCARDIOGRAM Name: DIAHARLEEN B Room #: 205-P ADM IN .R.#: [id number] Admission: 09/24/18 Attend Phys: Freda Sparks MD Discharge: Date of : 36 Date of Service: 09/24/18 1140 Report #: [id number] THIS REPORT FOR: //name// APPROVED REPORT Study performed: 09/24/2018 10:29:05 EXAM: Comprehensive 2D, Doppler, and color-flow Echocardiogram Patient Location: Bedside Room #: [facility] Status: routine BSA: 1.75 HR: 64 bpm BP: 140/88 mmHg Rhythm: NSR Other Information Study Quality: Adequate Indications Congestive Heart Failure Atrial Fibrillation Chest Pain Hypertension/HDD 2D Dimensions RVDd: 33.97 mm IVSd: 10.42 (7-11mm) LVOT Diam: 19.80 (18-24mm) LVDd: 43.97 mm PWd: 11.09 (7-11mm) Ascending Ao: 26.44 (22-36mm) LVDs: 29.87 (25-40mm) Aortic Root: 29.63 mm IVC: 18.00 mm Volumes Left Atrial Volume (Systole) Single Plane 4CH: 66.09 mL Single Plane 2CH: 51.29 mL LA ESV Index: 37.00 mL/m2 Aortic Valve AoV Peak Tono.: 1.65 m/s AO Peak Gr.: 10.94 mmHg LVOT Max P.35 mmHg LVOT Max V: 1.16 m/s SAMI Vmax: 2.15 cm2 Mitral Valve [facility] [email or web address] [address] 2 D/M-MODE ECHOCARDIOGRAM Name: DIAANITHAHARLEEN B Room #: 205-P [facility] IN [facility]#: [id number] Admission: 09/24/18 Attend Phys: Freda Sparks MD Discharge: Date of : 36 Date of Service: 09/24/18 1140 Report #: [id number] E/A Ratio: 1.7 MV Decel. Time: 197.70 ms MV E Max Tono.: 1.26 m/s MV A Tono.: 0.75 m/s MV PHT: 57.33 ms IVRT: 64.59 ms Pulmonary Valve PV Peak Tono.: 0.93 m/s PV Peak Gr.: 3.49 mmHg Pulmonary Vein P Vein S: 0.45 m/s P Vein A: 0.20 m/s P Vein D: 0.42 m/s P Vein A Dur.: 147.6 msec P Vein S/D Ratio: 1.07 Tricuspid Valve TR Peak Tono.: 3.03 m/s TR Peak Gr.: 36.84 mmHg PA Pressure: 42.00 mmHg Left Ventricle The left ventricle is normal size. There is normal LV segmental wall motion. There is normal left ventricular wall thickness. The left ventricular systolic function is normal. The left ventricular ejection fraction is within the normal range. LVEF is 60-65%. Moderate diastolic dysfunction is present (pseudonormal filling). Right Ventricle The right ventricle is normal size. The right ventricular systolic function is normal. Atria Left atrium is dilated. Right atrium is dilated. Aortic Valve The aortic valve is normal in structure. No aortic regurgitation is present. There is no aortic valvular stenosis. Mitral Valve The mitral valve is normal in structure. Mild mitral regurgitation. No evidence of mitral valve stenosis. Tricuspid Valve The tricuspid valve is normal in structure. There is mild tricuspid regurgitation. Estimated PAP 42 mmHg. There is mild-moderate [facility] [address] [place] [address] 2 D/M-MODE ECHOCARDIOGRAM Name: HARLEEN ALVARES Room #: 205-P ADM IN .R.#: [id number] Admission: 09/24/18 Attend Phys: Freda Sparks MD Discharge: Date of : 36 Date of Service: 09/24/18 1140 Report #: [id number] pulmonary hypertension. Pulmonic Valve The pulmonary valve is normal in structure. Trace to mild pulmonic regurgitation. Great Vessels The aortic root is normal in size. IVC is normal in size and collapses >50% with inspiration. Pericardium There is no pericardial effusion. <Conclusion> The left ventricle is normal size. There is normal left ventricular wall thickness. The left ventricular systolic function is normal. Moderate diastolic dysfunction is present (pseudonormal filling). The right ventricle is normal size. Left atrium is dilated. The aortic valve is normal in structure. Mild mitral regurgitation. There is mild tricuspid regurgitation. Estimated PAP 42 mmHg. There is mild-moderate pulmonary hypertension. <ELECTRONICALLY SIGNED> By: Hany Driscoll MD 09/24/18 1140 1140 1140 Hany Driscoll MD /INF
--- NOTE | ~2018-09-24 | EKG ---
[address] [place] [address] ELECTROCARDIOGRAM REPORT Name: HARLEEN ALVARES Room #: 205- ADM IN M.R.#: [id number] Admission: 09/24/18 Attend Phys: Freda Sparks MD Discharge: Date of : 36 Report #: [id number] THIS REPORT FOR: //name// [facility] ED Test Date: 2018-09-24 Test Time: 04:05:28 Pat Name: HARLEEN ALVARES Department: Room: [facility] Gender: F Senior Management Consultant: CLEM : 1935 Requested By: Nick Griffin Order Number: [id number] MD: Walter Ibanez Measurements Intervals [place] Rate: 67 P: DE: QRS: 30 QRSD: 92 T: 72 QT: 490 QTc: 518 Interpretive Statements Atrial fibrillation Nonspecific ST and T wave abnormality Prolonged QT interval Compared to ECG 12/08/2017 07:55:19 Atrial fibrillation has replaced sinus rhythm Electronically Signed On 09-24-2018 7:54:42 COMFORT FILLER by Walter Ibanez [email or web address] <ELECTRONICALLY SIGNED> By: Walter Ibanez MD, [facility] 09/24/18 0754 0405 0405 Walter Ibanez MD, [facility] /EPI
[~2018-09-24 03:58] MED LIST changes: +B-12500 MCG PO; +BYSTOLIC10 MG PO; +COLACE100 MG PO; +COZAAR100 MG PO; +HYDRALAZINE 2525 MG PO; +IRON325 PO; +MIRALAX17 GM PO; +TYLENOL325 MG PO; +VITAMIN D1000 UNI1 PO
[2018-09-24 04:32] LABS: ABSOLUTE NEUTROPHILS 8.2 thou/uL (1.4-8.2); BASOPHILS 0.2 % (0.0-2.0); EOSINOPHILS 0.5 % (0.0-3.0); HEMATOCRIT 27.6 % (37.0-47.0); HEMOGLOBIN 9.4 gm/dL (12.0-15.0); LYMPHOCYTES 7.7 % (24.0-44.0); MCH 28.7 pg (26.0-34.0); MCHC 34.2 g/dL (28.0-37.0); MCV 84.1 fL (80.0-100.0); MONOCYTES 7.1 % (1.0-8.0); PLATELET COUNT 197 thou/uL (150-400); POLYS 84.5 % (36.0-66.0); RBC 3.28 mil/uL (4.20-5.00); WBC 9.7 thou/uL (4.0-11.0)
[2018-09-24 04:42] LABS: ANION GAP 8 mmol/L (7-16); BUN 35 mg/dL (7-18); CALCIUM 9.4 mg/dL (8.5-10.1); CHLORIDE 101 mmol/L (98-107); CO2 27 mmol/L (21-32); CREATININE 2.1 mg/dL (0.6-1.0); GLUCOSE 189 mg/dL (74-106); POTASSIUM 3.3 mmol/L (3.5-5.1); SODIUM 136 mmol/L (136-145)
[2018-09-24 04:51] LABS: TROPONIN-I <0.06 ng/mL (<0.06)
[2018-09-24] MEDS ORDERED: TOPROL XL100 MG PO (08:53)
[2018-09-24] MEDS ORDERED: BENICAR HCT 401 EACH PO (08:53)
[2018-09-24] MEDS ORDERED: XARELTO15 MG PO (08:53)
[2018-09-25 00:40] VITALS: BP 166/84
[2018-09-25 05:29] VITALS: BP 167/91
[2018-09-25 07:40] VITALS: BP 172/87
[2018-09-25 07:53] LABS: ABSOLUTE NEUTROPHILS 6.9 thou/uL (1.4-8.2); BASOPHILS 0.2 % (0.0-2.0); EOSINOPHILS 0.4 % (0.0-3.0); HEMATOCRIT 26.8 % (37.0-47.0); HEMOGLOBIN 9.3 gm/dL (12.0-15.0); LYMPHOCYTES 7.1 % (24.0-44.0); MCH 29.1 pg (26.0-34.0); MCHC 34.6 g/dL (28.0-37.0); MONOCYTES 7.1 % (1.0-8.0); PLATELET COUNT 180 thou/uL (150-400); POLYS 85.2 % (36.0-66.0); RBC 3.19 mil/uL (4.20-5.00); RDW 17.1 % (10.5-14.5); WBC 8.1 thou/uL (4.0-11.0)
[2018-09-25] MEDS ORDERED: ZOFRAN 4 MG ORAL4 MG DISSOLVE (10:36)
[2018-09-25] MEDS ORDERED: METOPROLOL SUCC50 MG PO (10:36)
[2018-09-25 11:28] VITALS: BP 170/97
[2018-09-25 14:55] VITALS: BP 140/85
[2018-09-25] MEDS ORDERED: MUCINEX DM ER1 EAC1 PO (15:02)
[2018-09-25 15:03] VITALS: BP 140/85
== END 2018-09-25 16:34 | disposition home or self-care (01) | DRG 291 ==
LOC: ER 03:58 → EROBS 05:45 → 2N 05:45 → ENTRNSPT 09-25 16:01 → 2N 09-25 16:34
PROVIDERS: Emergency Medicine; Internal Medicine
DX: I13.0 Hypertensive heart and chronic kidney disease with heart failure and stage 1 through stage 4 chronic kidney disease, or unspecified chronic kidney disease (principal); I50.33 Acute on chronic diastolic (congestive) heart failure; E43 Unspecified severe protein-calorie malnutrition; R07.89 Other chest pain; G43.909 Migraine, unspecified, not intractable, without status migrainosus; I50.9 Heart failure, unspecified; N18.9 Chronic kidney disease, unspecified; E78.5 Hyperlipidemia, unspecified; I48.2 Chronic atrial fibrillation; E87.6 Hypokalemia; D63.8 Anemia in other chronic diseases classified elsewhere; I27.20 Pulmonary hypertension, unspecified; Z90.710 Acquired absence of both cervix and uterus; Z85.42 Personal history of malignant neoplasm of other parts of uterus; Z98.49 Cataract extraction status, unspecified eye; Z86.73 Personal history of transient ischemic attack (TIA), and cerebral infarction without residual deficits; Z88.8 Allergy status to other drugs, medicaments and biological substances; Z88.6 Allergy status to analgesic agent; Z91.041 Radiographic dye allergy status; Z87.891 Personal history of nicotine dependence; Z79.899 Other long term (current) drug therapy
CPT/HCPCS: 10081

== ENCOUNTER 2018-10-12 13:30 | Inpatient (IN) | payer OTHER ==
[~2018-10-12] VITALS: Ht 162.6 cm; Wt 63.5 kg
[~2018-10-12 13:30] MED LIST changes: +BENICAR HCT 401 EACH PO; +METOPROLOL SUCC50 MG PO; +MUCINEX DM ER1 EAC1 PO; +TOPROL XL100 MG PO; +XARELTO15 MG PO; +ZOFRAN 4 MG ORAL4 MG DISSOLVE
[2018-10-12 13:32] VITALS: BP 222/106
[2018-10-12 15:25] LABS: BE(vivo) 2.5 mmol/L (-2 to +3); HCO3 26.5 mmol/L (22.0-26.0); PCO2 VENOUS 38.7 mmHg (41.0-51.0); PO2 VENOUS 33.2 mmHg (35.0-45.0)
[2018-10-12 15:43] LABS: ABSOLUTE NEUTROPHILS 3.8 thou/uL (1.4-8.2); BASOPHILS 0.3 % (0.0-2.0); EOSINOPHILS 0.2 % (0.0-3.0); HEMATOCRIT 28.3 % (37.0-47.0); LYMPHOCYTES 14.1 % (24.0-44.0); MCH 29.6 pg (26.0-34.0); MCHC 35.3 g/dL (28.0-37.0); MONOCYTES 7.2 % (1.0-8.0); PLATELET COUNT 233 thou/uL (150-400); POLYS 78.2 % (36.0-66.0); RBC 3.37 mil/uL (4.20-5.00); RDW 17.5 % (10.5-14.5); WBC 4.9 thou/uL (4.0-11.0)
[2018-10-12 15:47] LABS: ANION GAP 10 mmol/L (7-16); BUN 27 mg/dL (7-18); CALCIUM 9.5 mg/dL (8.5-10.1); CHLORIDE 98 mmol/L (98-107); CO2 30 mmol/L (21-32); CREATININE 1.9 mg/dL (0.6-1.0); GLUCOSE 104 mg/dL (74-106); SODIUM 138 mmol/L (136-145)
[2018-10-12 15:55] LABS: ALBUMIN 3.6 g/dL (3.4-5.0); SGOT 19 U/L (15-37); SGPT 25 U/L (30-65); TOTAL BILIRUBIN 0.7 mg/dL (<0.1-1.0); TOTAL PROTEIN 7.1 g/dL (6.4-8.2); TROPONIN-I <0.06 ng/mL (<0.06)
[2018-10-12 16:25] LABS: URINE BILIRUBIN NEGATIVE (Negative); URINE BLOOD NEGATIVE (Negative); URINE CLARITY CLEAR; URINE COLOR YELLOW; URINE GLUCOSE-RANDOM* NEGATIVE (Negative); URINE KETONES NEGATIVE (Negative); URINE NITRITE-REFLEX NEGATIVE (Negative); URINE PROTEIN (DIPSTICK) TRACE (Negative); URINE UROBILINOGEN 0.2 E.U./dl (0.2-1.0)
[2018-10-12 16:26] LABS: URINE LEUKOCYTES-REFLEX 1+ (Negative)
[2018-10-12 16:34] LABS: CASTS None Seen /LPF (None Seen); CRYSTALS None Seen /LPF (None Seen); SQUAMOUS 0-3 Few /LPF (0-3); URINE RBC 0-2 Rare /HPF (0-2); URINE WBC-REFLEX 0-5 Rare /HPF (0-5)
[2018-10-12 17:33] VITALS: BP 221/107
[2018-10-12 18:21] VITALS: BP 183/62
[2018-10-12 19:15] VITALS: BP 211/108
[2018-10-12 22:01] VITALS: BP 172/80
[2018-10-13] VITALS (7 sets, daily range): BP systolic 107–163; BP diastolic 42–76
[2018-10-13 04:16] LABS: ALBUMIN 3.2 g/dL (3.4-5.0); ANION GAP 7 mmol/L (7-16); BUN 27 mg/dL (7-18); CALCIUM 9.2 mg/dL (8.5-10.1); CHLORIDE 99 mmol/L (98-107); CO2 32 mmol/L (21-32); GLUCOSE 111 mg/dL (74-106); POTASSIUM 3.2 mmol/L (3.5-5.1); SODIUM 138 mmol/L (136-145); TROPONIN-I <0.06 ng/mL (<0.06)
[2018-10-14 00:35] VITALS: BP 99/57
[2018-10-14 04:53] VITALS: BP 113/63
[2018-10-14 07:09] VITALS: BP 108/50
[2018-10-14] MEDS ORDERED: CARDIZEM CD 18180 M3 PO (09:42)
[2018-10-14 09:48] VITALS: BP 108/50
== END 2018-10-14 12:33 | disposition home or self-care (01) | DRG 304 ==
LOC: ER 13:30 → 2N 17:22 → EROBS 17:22 → 2N 18:22 → ENTRNSPT 10-14 12:01 → EDTRNSPTSTS 10-14 12:06 → 2N 10-14 12:33
PROVIDERS: Emergency Medicine; ADMIT Hospitalist
DX: I16.0 Hypertensive urgency (principal); E43 Unspecified severe protein-calorie malnutrition; N39.0 Urinary tract infection, site not specified; N18.4 Chronic kidney disease, stage 4 (severe); I13.0 Hypertensive heart and chronic kidney disease with heart failure and stage 1 through stage 4 chronic kidney disease, or unspecified chronic kidney disease; I48.91 Unspecified atrial fibrillation; G43.909 Migraine, unspecified, not intractable, without status migrainosus; I50.9 Heart failure, unspecified; E78.5 Hyperlipidemia, unspecified; E87.6 Hypokalemia; Z91.19 Patient's noncompliance with other medical treatment and regimen; Z90.710 Acquired absence of both cervix and uterus; Z85.42 Personal history of malignant neoplasm of other parts of uterus; Z86.73 Personal history of transient ischemic attack (TIA), and cerebral infarction without residual deficits; Z98.49 Cataract extraction status, unspecified eye; Z88.8 Allergy status to other drugs, medicaments and biological substances; Z88.6 Allergy status to analgesic agent; Z91.041 Radiographic dye allergy status; Z79.899 Other long term (current) drug therapy
CPT/HCPCS: 10081

== ENCOUNTER 2018-11-30 05:56 | Inpatient (IN) | payer OTHER ==
[~2018-11-30] VITALS: Ht 162.6 cm; Wt 75.7 kg
--- NOTE | ~2018-11-30 | HC ---
[facility] [place] [address] CONSULTATION Name: HARLEEN ALVARES Room #: [address] [place] [address] IN M.R.#: [id number] Admission: 11/30/18 Attend Phys: Freda Sparks MD Discharge: 12/01/18 Date of : 36 Report #: [id number] THIS REPORT FOR: //name// CC: Juli Sparks DATE OF SERVICE: 12/01/2018 HISTORY OF PRESENT ILLNESS: The patient is an 83-year-old -Liberian female, previously known to me, who complained of inability to walk and had right-sided weakness. There also was note of some speech change. CT of the head was negative. She was noted to have an elevated creatinine of 3.1 with her baseline usually around 2.0. She was seen by Neurology and this was thought to be consistent with TIA. Her labs have improved with her creatinine down to 2.5. She denies any further or any residual weakness. We are seeing her in rehabilitation medicine consultation. PAST MEDICAL HISTORY: Includes hypertension, atrial fibrillation, hysterectomy, uterine cancer, migraine, CHF, cataracts, chronic kidney disease, and hyperlipidemia. She has had a couple of prior strokes 10/2017 and 11/2017 and she did have residual left-sided weakness from those. HABITS: She is a past smoker. She never used recreational drugs. Past history of some alcohol usage. FAMILY HISTORY: No pertinent family history. ALLERGIES: CODEINE, IODINE, MORPHINE, MEPERIDINE. SOCIAL HISTORY: She lives in a house alone. There is note of a caregiver that checks in on her and there is a daughter that is closely involved. There are 4 steps. REVIEW OF SYSTEMS: She did not offer any current complaints of chest pain, shortness of breath, abdominal discomfort. Denies any visual changes. No specific numbness, tingling or weakness. PHYSICAL EXAMINATION: GENERAL: An 83-year-old, -Liberian female, in no obvious distress. VITAL SIGNS: Last recorded temperature 97.5, pulse 70, respirations 18, blood pressure 175/112. GENERAL: She is alert, pleasant, and oriented. She appears to verbalize quite well. HEENT: She has an old scar on her chin. Facies are otherwise symmetric. NEUROMUSCULOSKELETAL: Functional range of motion of both upper extremities, no obvious focal weakness, tone appeared to be intact. Lower extremities with no [facility] [address] [place] [address] CONSULTATION Name: HARLEEN ALVARES Room #: [address] [place] [address] IN M.R.#: [id number] Admission: 11/30/18 Attend Phys: Freda Sparks MD Discharge: 12/01/18 Date of : 36 Report #: [id number] focal weakness, tone appeared to be intact. No distal lower extremity edema. She was standby assistance with sit to stand and gait was 300 feet standby assistance. ASSESSMENT: An 83-year-old -Liberian female with the following problem list: 1. Transient ischemic attack, right upper and right lower extremity numbness with expressive aphasia. This has resolved. 2. Chronic atrial fibrillation. 3. Acute kidney injury with hypokalemia. 4. Recent pulmonary edema. 5. Hypertension. 6. Prior history of two prior strokes in early 2018 with some residual mild left hemiparesis. PLAN: The patient is doing quite well with her functional gait and mobility. She has actually been discharged by Physical Therapy. She is too high level to warrant an acute inpatient rehabilitation stay and should be able to return directly home with family support when medically cleared. Thank you for asking us to assist in this patient's care. By: 1141 2218 Drake Contreras MD /nt
[~2018-11-30 05:56] MED LIST changes: +CARDIZEM CD 18180 M3 PO
--- NOTE | 2018-11-30 06:09 | NUR ---
PATIENT TO CT AT THIS TIME
[2018-11-30 06:21] LABS: ABSOLUTE NEUTROPHILS 2.7 thou/uL (1.4-8.2); BASOPHILS 0.6 % (0.0-2.0); EOSINOPHILS 1.9 % (0.0-3.0); HEMATOCRIT 32.7 % (37.0-47.0); HEMOGLOBIN 11.5 gm/dL (12.0-15.0); LYMPHOCYTES 21.3 % (24.0-44.0); MCH 28.9 pg (26.0-34.0); MCHC 35.1 g/dL (28.0-37.0); MCV 82.5 fL (80.0-100.0); MONOCYTES 9.5 % (1.0-8.0); PLATELET COUNT 218 thou/uL (150-400); POLYS 66.7 % (36.0-66.0); RBC 3.96 mil/uL (4.20-5.00); RDW 15.6 % (10.5-14.5)
[2018-11-30 06:30] LABS: ANION GAP 10 mmol/L (7-16); BUN 47 mg/dL (7-18); CALCIUM 9.6 mg/dL (8.5-10.1); CHLORIDE 96 mmol/L (98-107); CO2 30 mmol/L (21-32); CREATININE 3.1 mg/dL (0.6-1.0); GLUCOSE 107 mg/dL (74-106); SODIUM 136 mmol/L (136-145)
[2018-11-30 06:31] LABS: APTT 28.4 Seconds (24.5-32.8); INR 1.1; PROTIME 11.3 Seconds (9.3-11.4)
--- NOTE | 2018-11-30 06:32 | NUR ---
FAMILY AT BEDSIDE
[2018-11-30 06:38] LABS: ALBUMIN 3.6 g/dL (3.4-5.0); MAGNESIUM 2.1 mg/dL (1.8-2.4); SGOT 14 U/L (15-37); SGPT 19 U/L (30-65); TOTAL BILIRUBIN 0.5 mg/dL (<0.1-1.0); TOTAL PROTEIN 7.1 g/dL (6.4-8.2); TROPONIN-I <0.06 ng/mL (<0.06)
[2018-11-30 07:38] VITALS: BP 171/100
[2018-11-30 07:41] VITALS: BP 174/90
--- NOTE | 2018-11-30 07:43 | NUR ---
FAXED HANDOFF TO [facility]
--- NOTE | 2018-11-30 08:36 | EKG ---
[place] [address] [address] [facility] [employer] [place] [address] ELECTROCARDIOGRAM REPORT Name: HARLEEN ALVARES Room #: 205- ADM IN M.R.#: [id number] Admission: 11/30/18 Attend Phys: Freda Sparks MD Discharge: Date of : 36 Report #: [id number] THIS REPORT FOR: //name// [facility] ED Test Date: 2018-11-30 Test Time: 06:01:55 Pat Name: HARLEEN ALVARES Department: Room: 205 Gender: F Container Shop Welder: gaetano : 1935 Requested By: Cm Manley Order Number: [id number] MD: Walter Ibanez Measurements Intervals [place] Rate: 63 P: IN: QRS: 27 QRSD: 119 T: 180 QT: 413 QTc: 423 Interpretive Statements Atrial fibrillation Nonspecific ST and T wave abnormality Compared to ECG 09/24/2018 04:05:28 Nonspecific change in the ST and T-wave segments Electronically Signed On 11-30-2018 8:36:06 AUTOMOTIVE GLASS TECHNICIAN by Walter Ibanez [email or web address] <ELECTRONICALLY SIGNED> By: Walter Ibanez MD, [facility] 11/30/18 0836 0 0 Walter Ibanez MD, [facility] /EPI
[2018-11-30 08:40] VITALS: BP 153/95
--- NOTE | 2018-11-30 12:07 | NUR ---
PT TO FLOOR AT APPROX 0930 FROM ER. PT AOX4, NO S/SX OF CARDIAC OR RESP DISTRESS. NO COMPLAINTS VOICED. MUSCULOSKELETAL PHYSIOTHERAPIST EQUAL AND STRONG, BLE EQUAL AND STRONG. PT DENIES ANY NUMBNESS OR WEAKNESS. WITH HELP OF THIS NURSE AMBULATED TO BATHROOM. PT TOLERATED WELL WITH NO DIZZINESS OR WEAKNESS. WILL CONTINUE TO MONITOR.
--- NOTE | 2018-11-30 15:25 | NUR ---
ASSUMED PATIENT CARE FROM [facility]ARTY SHELL AROUND 1430. PATIENT LYING IN BED, ROOM AIR. NO COMPLAINTS STATED. WILL CONTINUE TO MONITOR.
[2018-11-30 15:59] VITALS: BP 134/65
[2018-11-30] MEDS ORDERED: CLARITIN10 MG PO (17:55)
[2018-11-30 20:05] LABS: URINE BILIRUBIN NEGATIVE (Negative); URINE BLOOD TRACE (Negative); URINE CLARITY SL CLOUDY; URINE COLOR YELLOW; URINE GLUCOSE-RANDOM* NEGATIVE (Negative); URINE KETONES NEGATIVE (Negative); URINE NITRITE-REFLEX NEGATIVE (Negative); URINE PROTEIN (DIPSTICK) TRACE (Negative); URINE UROBILINOGEN 0.2 E.U./dl (0.2-1.0)
[2018-11-30 20:08] LABS: URINE LEUKOCYTES-REFLEX 2+ (Negative)
[2018-11-30 20:14] LABS: AMP/METHAMP Negative (Negative); BARBITURATES Negative (Negative); BENZODIAZEPINES Negative (Negative); COCAINE Negative (Negative); METHADONE Negative (Negative); OPIATES Negative (Negative); PCP Negative (Negative)
[2018-11-30 20:24] LABS: BACTERIA-REFLEX >30 Many /HPF (None Seen); CASTS None Seen /LPF (None Seen); CRYSTALS None Seen /LPF (None Seen); MUCUS 0-3 Light strn/LPF (None Seen); SQUAMOUS 4-10 Moderate /LPF (0-3); URINE RBC 3-10 Few /HPF (0-2); URINE WBC-REFLEX >25 Many /HPF (0-5); WBC CLUMPS Few (None Seen)
[2018-11-30 20:43] VITALS: BP 153/91
[2018-12-01 00:56] VITALS: BP 146/69
--- NOTE | 2018-12-01 03:43 | NUR ---
ASSESSMENTS CHARTED. PT UP TO TOLIET WITH STANDBY ASSIST. UA CAME BACK POSSITIVE FOR BACTERIA. HOME MEDS WERE RESTARTED. C/O HEADACHE BEHIND LEFT EYE. DOSED CHARTED. PATIENT SLEPT WELL THROUGH MOST OF THE NIGHT. PLAN OF CARE TO TREAT URINE INFECTION,
[2018-12-01 04:03] LABS: CALCIUM 9.1 mg/dL (8.5-10.1); CREATININE 2.5 mg/dL (0.6-1.0); MAGNESIUM 1.8 mg/dL (1.8-2.4)
[2018-12-01 04:15] VITALS: BP 160/96
[2018-12-01 04:21] LABS: POTASSIUM 2.8 mmol/L (3.5-5.1)
[2018-12-01 04:41] LABS: HEMATOCRIT 31.5 % (37.0-47.0); MCH 28.6 pg (26.0-34.0); MCHC 34.8 g/dL (28.0-37.0); RBC 3.85 mil/uL (4.20-5.00); WBC 4.1 thou/uL (4.0-11.0)
[2018-12-01 07:58] VITALS: BP 175/112
[2018-12-01 11:45] VITALS: BP 144/108
[2018-12-01] MEDS ORDERED: KEFLEX500 M1 PO (12:22)
[2018-12-01] MEDS ORDERED: NORVASC10 MG PO (12:22)
[2018-12-01 14:55] VITALS: BP 144/108
--- NOTE | 2018-12-01 15:34 | NUR ---
ASSESSMENT CHARTED - MEDS PER DEC - NO CO'S OF PAIN OR NAUSEA,. NINI DIET AND FLUIDS. UP AD TORI IN ROOM. K+ BOLUSES COMPLETED ORDERED. IV FLUIDS INFUSING WITHOUT DIFFICULTY- PT HOME THIS AFTERNOON. INSTRCUTION RE HOME MEDS/ CARE AND FOLLOW UP GIVEN TO PATIENT AND DUAGHTER - STATED UNDERSTANDING OF INSTRUCTION GIVEN. IV AND MONITOR D/C PRIOR TO D.C, NO CO'S AT TIME OF DISCHARGE.
== END 2018-12-01 15:30 | disposition home or self-care (01) | DRG 682 ==
LOC: ER 05:56 → EROBS 07:19 → 2N 07:19 → ENTRNSPT 12-01 15:22 → EDTRNSPTSTS 12-01 15:24 → 2N 12-01 15:30
PROVIDERS: Emergency Medicine; ADMIT Internal Medicine
DX: N17.9 Acute kidney failure, unspecified (principal); E43 Unspecified severe protein-calorie malnutrition; G45.9 Transient cerebral ischemic attack, unspecified; I13.0 Hypertensive heart and chronic kidney disease with heart failure and stage 1 through stage 4 chronic kidney disease, or unspecified chronic kidney disease; I50.9 Heart failure, unspecified; G43.909 Migraine, unspecified, not intractable, without status migrainosus; E87.6 Hypokalemia; N18.9 Chronic kidney disease, unspecified; E55.9 Vitamin D deficiency, unspecified; I48.2 Chronic atrial fibrillation; K59.00 Constipation, unspecified; D64.9 Anemia, unspecified; Z79.899 Other long term (current) drug therapy; Z88.5 Allergy status to narcotic agent; Z88.8 Allergy status to other drugs, medicaments and biological substances; Z91.041 Radiographic dye allergy status; Z90.49 Acquired absence of other specified parts of digestive tract; Z79.01 Long term (current) use of anticoagulants; Z98.49 Cataract extraction status, unspecified eye; Z90.710 Acquired absence of both cervix and uterus; Z79.1 Long term (current) use of non-steroidal anti-inflammatories (NSAID)
CPT/HCPCS: 10081

== ENCOUNTER 2019-01-19 21:04 | Inpatient (IN) | payer OTHER ==
[~2019-01-19] VITALS: Ht 162.6 cm; Wt 64.2 kg
--- NOTE | ~2019-01-19 | HC ---
[facility] [place] [address] CONSULTATION Name: HARLEEN ALVARES Room #: 238-P ADM IN M.R.#: [id number] Admission: 01/19/19 ������������������ Attend Phys: Edwin Cornelius MD Discharge: ������������������ Date of : 36 Report #: [id number] THIS REPORT FOR: //name// CC: Edwin DotyJohn Li DATE OF SERVICE: 01/20/2019 HISTORY OF PRESENT ILLNESS: This is an 83-year-old female patient who was seen by me for CVA. I had discussed this patient with the Emergency Room physician last night. They had called me that this patient was in the Emergency Room with high blood pressure and speech difficulty. Apparently, this patient had a prior history of CVA. They were not sure whether the patient had hypertensive emergency or whether it was a stroke. Time of onset was not clear and the patient was actually seen at 08:00 in the morning. The patient was on Xarelto and therefore, she was not considered a TPA candidate. I suggested getting an MRI of the brain and MRA of the head and neck done, which they did. MRI indicated left hemispheric CVA, which will correlate with the patient's symptoms. 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 The stroke was showing up only on diffusion-weighted images, as I understood and therefore, I asked them to contact [facility] and transfer the patient there for further evaluation and management. I did not hear anything back on this patient, but reviewing the record from Emergency Room would indicate that emergency physician, Dr. Choi, contacted [facility], but they did not transfer the patient there because they did not think the patient was a candidate for thrombectomy and she was admitted here. REVIEW OF SYSTEMS: Indicates that this patient has history of atrial fibrillation. Apparently, she takes her Xarelto on a regular basis. She has a history of CHF and chronic kidney disease. She had a stroke in the past and she had left-sided weakness. She was markedly hypertensive. They gave her some medication and her blood pressure came down. She has numerous problems at the moment. She does have a prior history of stroke, uterine cancer, hysterectomy and cataracts. PAST MEDICAL HISTORY: Positive for stroke as well as atrial fibrillation. FAMILY HISTORY: Unavailable at the moment. SOCIAL HISTORY: She has a supportive family, but there was nobody there when I saw this patient. PHYSICAL EXAMINATION: The patient's examination indicates that this patient is pretty significantly aphasic. She can follow simple commands most of the time, but her speech output is not there. Nurses tell me that she was able to have [facility] [address] [place] [address] CONSULTATION Name: HARLEEN ALVARES Room #: 238-P [facility] IN M.R.#: [id number] Admission: 01/19/19 ������������������ Attend Phys: Edwin Cornelius MD Discharge: ������������������ Date of : 36 Report #: [id number] some speech output, but when I saw this patient, she did not have much speech output. It would appear she can move both sides. Her blood pressure is running high at 203/116. LABORATORY DATA: WBC count is 6.5. I reviewed the patient's MRI and MRAs and they do show a stroke. IMPRESSION: This patient presented with a history of left hemispheric stroke and that was confirmed by MRI. This patient was not a TPA candidate because the time of onset was not clear and the patient was on Xarelto. As mentioned above, [facility] people from Intervention did not think she is a candidate for intervention. Therefore, no intervention was done last night as my note indicates and as the Emergency Room physician's notes indicate. Not much can be done at this stage for this patient. I will keep the blood pressure somewhat high, but I talked to the nurses that we should get her evaluated by Speech Therapy and if Speech clears her for swallowing, then she should be put back on the same antihypertensive she was at home. Her blood pressure is going up and she will need some blood pressure management, although permissive hypertension should continue and her blood pressure should stay somewhere between 170-200 for the time being to adequately perfuse the brain where the stroke is. She is already on Xarelto. Once her stroke stabilizes, we might consider adding aspirin since she had stroke on Xarelto. We will also see what the pediatric physician assistant says. A combined time of 50 minutes was spent taking care of this patient and majority of that time was spent coordinating the patient. I tried to senior vice president & general counsel the patient, but I am not sure how much she has understood and I will try to reach the family. Thank you very much for this referral. ��������������������������������������������� ���������������������������������������� By: ��������������������������������������������� 1204 0052 Hema Li MD /nt
[~2019-01-19 21:04] MED LIST changes: +CLARITIN10 MG PO; +KEFLEX500 M1 PO; +NORVASC10 MG PO
[2019-01-19 21:18] LABS: BE(vivo) 3.1 mmol/L (-2 to +3); HCO3 25.4 mmol/L (22.0-26.0); PCO2 31.3 mmHg (35.0-45.0); PO2 330.3 mmHg (80.0-100.0); pH 7.527 (7.360-7.450); sO2 99.8 % (92.0-98.0)
[2019-01-19 21:31] LABS: ABSOLUTE NEUTROPHILS 5.2 thou/uL (1.4-8.2); BASOPHILS 0.4 % (0.0-2.0); EOSINOPHILS 0.3 % (0.0-3.0); HEMATOCRIT 32.2 % (37.0-47.0); LYMPHOCYTES 13.3 % (24.0-44.0); MCHC 34.3 g/dL (28.0-37.0); MCV 81.7 fL (80.0-100.0); MONOCYTES 6.8 % (1.0-8.0); PLATELET COUNT 205 thou/uL (150-400); POLYS 79.2 % (36.0-66.0); RBC 3.94 mil/uL (4.20-5.00); RDW 16.6 % (10.5-14.5); WBC 6.5 thou/uL (4.0-11.0)
[2019-01-19 21:41] LABS: CALCIUM 10.4 mg/dL (8.5-10.1); CREATININE 2.2 mg/dL (0.6-1.0)
[2019-01-19 21:46] LABS: TROPONIN-I 0.34 ng/mL (<0.06)
[2019-01-19 21:50] LABS: ALBUMIN 3.9 g/dL (3.4-5.0); TOTAL BILIRUBIN 0.8 mg/dL (<0.1-1.0); TOTAL PROTEIN 7.4 g/dL (6.4-8.2); TROPONIN-I 0.36 ng/mL (<0.06)
[2019-01-19 22:23] LABS: URINE BILIRUBIN NEGATIVE (Negative); URINE BLOOD TRACE (Negative); URINE CLARITY CLEAR; URINE COLOR YELLOW; URINE GLUCOSE-RANDOM* NEGATIVE (Negative); URINE KETONES NEGATIVE (Negative); URINE LEUKOCYTES NEGATIVE (Negative); URINE NITRITE NEGATIVE (Negative); URINE PROTEIN (DIPSTICK) 1+ (Negative); URINE SPECIFIC GRAVITY 1.015 (1.005-1.035); URINE UROBILINOGEN 0.2 E.U./dl (0.2-1.0)
[2019-01-19 22:34] LABS: AMP/METHAMP Negative (Negative); BARBITURATES Negative (Negative); BENZODIAZEPINES Negative (Negative); COCAINE Negative (Negative); METHADONE Negative (Negative); OPIATES Negative (Negative); PCP Negative (Negative)
[2019-01-20] VITALS (67 sets, daily range): BP systolic 169–208; BP diastolic 73–129
--- NOTE | 2019-01-20 02:46 | NUR ---
ASSUMED CARE OF PATIENT FROM ER. ADMISSION COMPLETED WITH LIMITED INFORMATION FROM DAUGHTER AND FRIEND. STATES SHE WAS FINE IN THE MORNING, BUT WHEN CALLED LATER THEY KNEW SOMETHING WASN'T RIGHT. STATE SHE IS MORE AND MORE FORGETFUL, BUT DOES TAKE HER MEDS. BP REMAINS ELEVATED, AFIB ON MONITOR. POC GOALS ESTABLISHED.
--- NOTE | 2019-01-20 08:33 | EKG ---
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 Operator: WILI : 1935 Requested By: Olamide Trimble Order Number: [id number] MD: Stewart Garcia Measurements Intervals [place] Rate: 117 P: RI: QRS: 31 QRSD: 83 T: 60 QT: 261 QTc: 364 Interpretive Statements Atrial fibrillation Compared to ECG 11/30/2018 06:01:55 Electronically Signed On 01-20-2019 8:33:31 CDT by Stewart Garcia [email or web address] ��������������������������������������������� <ELECTRONICALLY SIGNED> ���������������������������������������� By: Stewart Garcia MD ��������������������������������������������� 01/20/19 0833 2114 13 Stewart Garcia MD /[facility]
--- NOTE | 2019-01-20 09:21 | 2DMMODE ---
[facility] [address] [place] [address] 2 D/M-MODE ECHOCARDIOGRAM Name: HARLEEN ALVARES Room #: 238-P ADM IN M.R.#: [id number] ������������� Admission: 01/19/19 ������������� Attend Phys: Edwin Cornelius, Discharge: ��� ������������� ��� Date of : 37 Date of Service: 01/20/19 0921 �� Report #: [id number] �������� ��������������������������������������������[id number] THIS REPORT FOR: //name// APPROVED REPORT Study performed: 01/20/2019 08:20:23 EXAM: Comprehensive 2D, Doppler, and color-flow Echocardiogram Patient Location: ICU Room #: 238 Status: routine BSA: 1.68 HR: 108 bpm BP: 203/116 mmHg Rhythm: Atrial Fibrillation Other Information Study Quality: Adequate Indications CVA, HTN urgency, Afib. Hx: Afib, CVA, HTN, HLP Echo Enhancing Agent Indication: Rule out Shunt Agent(s) / Amount(s) Used: Agitated Saline 6 cc 2D Dimensions RVDd: 37.49 mm IVSd: 10.28 (7-11mm) LVOT Diam: 19.08 (18-24mm) LVDd: 38.16 mm PWd: 9.55 (7-11mm) Ascending Ao: 32.76 (22-36mm) LVDs: 27.21 (25-40mm) Aortic Root: 32.35 mm Volumes Left Atrial Volume (Systole) Single Plane 4CH: 67.84 mL Single Plane 2CH: 61.71 mL LA ESV Index: 42.00 mL/m2 Aortic Valve AoV Peak Tono.: 1.34 m/s AO Peak Gr.: 7.22 mmHg LVOT Max P.31 mmHg LVOT Max V: 0.90 m/s SAMI Vmax: 1.93 cm2 [facility] [place] [address] 2 D/M-MODE ECHOCARDIOGRAM Name: [facility] Room #: [address] [place] [address] IN M.R.#: [id number] ������������� Admission: 01/19/19 ������������� Attend Phys: Edwin Cornelius, Discharge: ��� ������������� ��� Date of : 37 Date of Service: 01/20/19 0921 �� Report #: [id number] �������� ��������������������������������������������[id number] Mitral Valve MV Decel. Time: 174.91 ms MV E Max Tono.: 1.38 m/s Pulmonary Valve PV Peak Tono.: 0.96 m/s PV Peak Gr.: 3.78 mmHg Tricuspid Valve TR Peak Tono.: 2.72 m/s RAP Estimate: 5.00 mmHg TR Peak Gr.: 29.77 mmHg PA Pressure: 35.00 mmHg Left Ventricle The left ventricle is normal size. There is normal LV segmental wall motion. There is normal left ventricular wall thickness. Left ventricular systolic function is normal. LVEF is 55-60%. This study is not technically sufficient to allow evaluation of the LV diastolic function due to atrial fibrillation. Right Ventricle The right ventricle is normal size. The right ventricular systolic function is normal. Atria Left atrium is moderately dilated. No shunting by contrast bubble injection Right atrium is mildly dilated. Aortic Valve Aortic valve is trileaflet. Trace aortic regurgitation. There is no aortic valvular stenosis. Mitral Valve The mitral valve is normal in structure Moderate mitral regurgitation. Tricuspid Valve The tricuspid valve is normal in structure. Mild tricuspid regurgitation. Estimated PAP is 35mmHg. Pulmonic Valve The pulmonary valve is normal in structure. Mild pulmonic regurgitation. Great Vessels The aortic root is normal in size. The ascending aorta is normal in size. IVC is normal in size and collapses >50% with [facility] [address] [place] [address] 2 D/M-MODE ECHOCARDIOGRAM Name: HARLEEN ALVARES Room #: [address] [place] [address] IN M.R.#: [id number] ������������� Admission: 01/19/19 ������������� Attend Phys: Edwin Cornelius, Discharge: ��� ������������� ��� Date of : 37 Date of Service: 01/20/19 0921 �� Report #: [id number] �������� ��������������������������������������������[id number] inspiration. Pericardium There is no pericardial effusion. <Conclusion> Left ventricular systolic function is normal. There is normal LV segmental wall motion. LVEF is 55-60%. No shunting by contrast bubble injection Aortic valve is trileaflet. Trace aortic regurgitation, no stenosis. The mitral valve is normal in structure. Moderate mitral regurgitation. Mild tricuspid regurgitation. Estimated pulmonary artery pressure of 35mmHg. There is no pericardial effusion. ��������������������������������������������� <ELECTRONICALLY SIGNED> ���������������������������������������� By: Walter Ibanez MD, FACC ��������������������������������������������� 01/20/19920 0 0 Walter Ibanez MD, FACC /INF
--- NOTE | 2019-01-20 16:47 | NUR ---
Chart reviewed and case discussed with the care team. Pt is currently in ICU with a new stroke. The pt was able to answer some questions with one word. Her niece Erika was at bedside this afternoon and able to confirm pt's responses. Pt is also known to cm from previous admissions here in September 2018 and last Spring on [facility] acute rehab. She lives in her own home with 4 steps to enter. She has been staying on the main level of the [facility] home for some time now. She has had hh in the past with [facility] but none recently. She has a rwalker and w/c at home but does not use them for gait. She has a male friend who lives with her and assists with some IADLS. Her dtr helps with meals as well. Her Sister and niece live down the block and are supportive. Her neice reports that she does not get out as much and drives very little recently. Her pcp is . Therapy evaluations have been initiated. Swallow study pending along with [facility] acute rehab eval. CM role introduced. Will follow along for rehab recommendations. Would anticipate the pt may be a good candidate for 5[facility] acute rehab stay.
--- NOTE | 2019-01-20 17:34 | NUR ---
END OF SHIFT NOTE. NIH 9 EXPRESSIVE APHASIA. TOLORATING DIET. NO COMPLAINTS OF PAIN. ALLOWABLE HTN. AMIODARONE GTT. HR DOWN TO 70S.
[2019-01-20 23:07] LABS: GLYCOHEMOGLOBIN (HGB A1C) 5.8 % (4.8-5.6)
[2019-01-21] VITALS (48 sets, daily range): BP systolic 148–230; BP diastolic 70–111
[2019-01-21 05:25] LABS: CHOLESTEROL 179 mg/dL (<200); HDL CHOLESTEROL 78 mg/dL (>40); LDL CHOLESTEROL 86 mg/dL (<100); TC:HDL 2.3 Ratio (Not establshd); TRIGLYCERIDE 75 mg/dL (<150); VLDL 15 mg/dL (<40)
[2019-01-21 05:37] LABS: SERUM ASSESSMENT Clear
--- NOTE | 2019-01-21 06:55 | NUR ---
ASSESSMENTS CHARTED. ONE DOSE OF LABETALOL DUE TO RISING BLOOD PRESSURE. PATIENT LEFT IV ACCESS INFILTRATED WITH AMIODARONE. RECEIVED ORDER FOR PAIN MED ONE TIME DOSE. AMIODARONE MOVED TO RIGHT AC ACCESS. FALL PROTECTION IN PLACE. PLAN OF CARE TO CONTINUE TREATMENT.
[2019-01-21 11:43] LABS: HEMATOCRIT 29.9 % (37.0-47.0); HEMOGLOBIN 10.3 gm/dL (12.0-15.0); MCH 28.4 pg (26.0-34.0); MCHC 34.6 g/dL (28.0-37.0); MCV 82.2 fL (80.0-100.0); RBC 3.64 mil/uL (4.20-5.00); RDW 16.5 % (10.5-14.5)
[2019-01-21 11:47] LABS: CALCIUM 9.9 mg/dL (8.5-10.1); CREATININE 2.4 mg/dL (0.6-1.0); POTASSIUM 3.6 mmol/L (3.5-5.1)
--- NOTE | 2019-01-21 13:47 | NUR ---
Pt has been evaluated by [facility] acute rehab team and they can accept the pt when medically cleared for dc to rehab. They will have a bed available tomorrow and can call the [facility] to make arrangements @ [phone]. Pt not cleared today d/t elevated bp.
--- NOTE | 2019-01-21 14:50 | NUR ---
PATIENT HAS BEEN SEEN BY DR. PRICE AND HAS BEEN APPROVED FOR AN ACUTE REHAB STAY. PATIENT MOVING OUT OF ICU TODAY. PATIENT MAY BE MEDICALLY STABLE AND READY FOR ADMISSION TO ACUTE REHAB OVER WEEKEND (01/22 - 01/23/19). WEEKEND THREAD MARKER IS [facility] AND CAN BE REACHED AT [phone]. PLEASE CALL [facility] IF PATIENT IS READY FOR DISCHARGE TO .
--- NOTE | 2019-01-21 18:38 | NUR ---
PATIENT ASSESSMENTS AND VITAL SIGNS DOCUMENTED. ORAL CARE PROVIDED. NIH STROKE SCALE PERFORMED. NEW CLINICAL PARAMETERS ORDERED FOR HER BLOOD PRESSURE AND INTERVENTIONS. THIS WAS PERFORMED. PATIENT FAMILY AT BEDSIDE MOST OF THE DAY. PATIENT EATS BETTER WITH FAMILY COMPARED TO APERTURE MASK ETCHER. HOWEVER, SHE DID NOT EAT VERY MUCH, A FEW BITES AT EVERY MEAL. ENSURES PROMOTED ORDERED. PLAN OF CARE IS TO CONTINUE TO MONITOR PATIENT VITAL SIGNS, NEURO ASSESSMENTS, AND INCREASE STRENGTH AND ACTIVITY.
--- NOTE | 2019-01-21 23:50 | NUR ---
TRANSFERED TO CCU RM 206 AT 2235, PT ALERT, HAS EXPRESSIVE APHASIA, NIH SCORE, SYSTOLIC BP RANGING 140'S TO 160'S. REPORT GIVEN TO FLORINA SHELL.
[2019-01-22] VITALS (7 sets, daily range): BP systolic 149–182; BP diastolic 70–93
--- NOTE | 2019-01-22 05:58 | NUR ---
PT TRANSFERED FROM ICU TO ROOM 206 WITH DAUGHTER, SR ON THE MONITOR, BP ELEVATED >180 SYSTOLIC AND PRN LABATELOL TRENDING DOWN, DENIES PAIN, REPOSITIONED Q 2HRS AND NEEDED, WILL CON'T TO MONITOR PER PPOC.
--- NOTE | 2019-01-22 11:33 | NUR ---
AT APPROX 1045 NURSE NOTED THAT PT HAD CHANGED IN RHYTHM ON TELEMETRY. YAJAIRA WHELAN NOTIFIED. EKG ORDERED AND MED ORDERS ENTERED INTO [address].
[2019-01-22 13:45] LABS: HEMATOCRIT 30.2 % (37.0-47.0); HEMOGLOBIN 10.4 gm/dL (12.0-15.0); MCH 28.4 pg (26.0-34.0); MCHC 34.3 g/dL (28.0-37.0); MCV 82.6 fL (80.0-100.0); RBC 3.66 mil/uL (4.20-5.00); RDW 16.7 % (10.5-14.5); WBC 7.1 thou/uL (4.0-11.0)
[2019-01-22 13:52] LABS: CALCIUM 9.4 mg/dL (8.5-10.1); CREATININE 2.5 mg/dL (0.6-1.0); MAGNESIUM 2.3 mg/dL (1.8-2.4); POTASSIUM 3.8 mmol/L (3.5-5.1)
--- NOTE | 2019-01-22 19:56 | NUR ---
ASSUMED CARE OF PT AT 0700. PT ALERT AND FOLLOWS COMMANDS. WORKED WITH PT AND FAMILY ON HAVING PT VERBALIZE ANSWERS INSTEAD OF NODDING OR SHAKING HEAD. WORKED WITH PT ON FEEDING HERSELF. PT ABLE TO USE SPOON IF FOOD IS PLACED INTO SPOON. PT HAD RHYTHM CHANGE TO AFIB AND CLEOPATRA GATES NOTIFIED AND ORDERS RECEIVED. PT HAD DAUGHTER AND SON-IN-LAW VISITING TODAY. DAUGHTER INVOLVED IN PTS CARE. WILL CONT WITH POC.
--- NOTE | 2019-01-23 04:33 | NUR ---
ASSESSMENT DOCUMENTED. EXPRESSIVE APHASIA, ORIENTED TO SELF ONLY, INCONSISTENT WITH OBEYING COMMANDS. WEAKNESS ON BILATERAL EXTREMITIES L>R. ABLE TO LIST BOTH LEGS AGAINST GRAVITY. TURNING DONE Q 2 HRS. ORAL CARE RENDERED. RELATIVE AT BEDSIDE. FF UP POC.
[2019-01-23 04:58] LABS: HEMATOCRIT 28.5 % (37.0-47.0); HEMOGLOBIN 9.7 gm/dL (12.0-15.0); MCH 28.1 pg (26.0-34.0); MCV 82.8 fL (80.0-100.0); RBC 3.44 mil/uL (4.20-5.00); RDW 16.6 % (10.5-14.5); WBC 6.5 thou/uL (4.0-11.0)
[2019-01-23 05:09] LABS: CREATININE 2.4 mg/dL (0.6-1.0); MAGNESIUM 2.4 mg/dL (1.8-2.4); POTASSIUM 3.5 mmol/L (3.5-5.1)
[2019-01-23 05:21] VITALS: BP 164/89
[2019-01-23 08:20] VITALS: BP 168/108
[2019-01-23 12:45] VITALS: BP 147/79
[2019-01-23 12:49] VITALS: BP 147/79
--- NOTE | 2019-01-23 13:38 | EKG ---
[place] [address] [address] [place] [address] ELECTROCARDIOGRAM REPORT Name: HARLEEN ALVARES Room #: 206-P ADM IN M.R.#: [id number] ������������������ Admission: 01/19/19 ������������������ Attend Phys: Edwin Cornelius MD Discharge: ������������������ Date of : 37 Report #: [id number] ����������������������������������������������������������������� [id number] THIS REPORT FOR: //name// [facility] Test Date: 2019-01-22 Test Time: 11:23:36 Pat Name: HARLEEN ALVARES Department: Room: 206 P Gender: F Information Technology Analyst: CHAITANYA : 1935 Requested By: Romy Daigle Order Number: [id number] MD: Walter Ibanez Measurements Intervals [place] Rate: 88 P: HI: QRS: 12 QRSD: 87 T: 48 QT: 399 QTc: 483 Interpretive Statements Atrial fibrillation Nonspecific ST segment abnormality Compared to ECG 01/19/2019 21:14:32 No significant change was found Electronically Signed On 01-23-2019 13:38:06 CDT by Walter Ibanez [email or web address] ��������������������������������������������� <ELECTRONICALLY SIGNED> ���������������������������������������� By: Walter Ibanez MD, [facility] ��������������������������������������������� 01/23/19 1338 D: [id number] Walter Ibanez MD, FAC /EPI
[2019-01-23 16:17] VITALS: BP 144/92
--- NOTE | 2019-01-23 16:35 | NUR ---
ASSUMED CARE OF PT AT 0700. PT ALERT AND ORIENTED TO SELF AND PLACE. PT USING MORE FULL SENTENCES TODAY. PT UNABLE TO USE CALL LIGHT AND HAS SOFT TOUCH PAD. PT WORKED WITH PHYSICAL THERAPY TODAY AND TRANSFERRED TO THE CHAIR AND COMMODE WITH MOD ASSIST AND GAIT BELT. CLARKE DISCONTINUED. BLOOD PRESSURE HIGH IN AM AND SCHEDULED BP MEDS GIVEN. PT VITALS WITHIN NORMAL LIMITS (SYSTOLIC BP IN 140'S). PT TO BE DISCHARGED TO [facility]N REHAB. WILL CONT WITH POC
[2019-01-23] MEDS ORDERED: PACERONE 200 M200 M1 PO (17:05)
[2019-01-23] MEDS ORDERED: ADULT LOW DOSE81 MG PO (17:06)
== END 2019-01-23 18:17 | DRG 65 ==
LOC: ER 21:04 → ICU 22:35 → EROBS 22:35 → ICU 01-20 01:04 → 2N 01-21 23:55
PROVIDERS: Nurse Practitioner Acute Care; Physician Assistant; Student in an Organized Health Care Education/Training Program; ADMIT Internal Medicine
DX: I63.9 Cerebral infarction, unspecified (principal); I13.0 Hypertensive heart and chronic kidney disease with heart failure and stage 1 through stage 4 chronic kidney disease, or unspecified chronic kidney disease; G81.91 Hemiplegia, unspecified affecting right dominant side; I48.91 Unspecified atrial fibrillation; G43.909 Migraine, unspecified, not intractable, without status migrainosus; I50.9 Heart failure, unspecified; E78.5 Hyperlipidemia, unspecified; I16.0 Hypertensive urgency; N18.3 Chronic kidney disease, stage 3 (moderate); E87.6 Hypokalemia; E78.00 Pure hypercholesterolemia, unspecified; R47.01 Aphasia; Z86.73 Personal history of transient ischemic attack (TIA), and cerebral infarction without residual deficits; Z85.42 Personal history of malignant neoplasm of other parts of uterus; Z90.710 Acquired absence of both cervix and uterus; Z98.42 Cataract extraction status, left eye; Z98.41 Cataract extraction status, right eye; Z87.891 Personal history of nicotine dependence; Z79.01 Long term (current) use of anticoagulants; Z79.899 Other long term (current) drug therapy; Z88.5 Allergy status to narcotic agent; Z88.8 Allergy status to other drugs, medicaments and biological substances; Z91.041 Radiographic dye allergy status
CPT/HCPCS: 10078; 10081

== ENCOUNTER 2019-01-23 15:25 | Inpatient (IN) | payer OTHER ==
[~2019-01-23] VITALS: Ht 162.6 cm; Wt 68.4 kg
--- NOTE | ~2019-01-23 | PLAN ---
[facility] [place] [address] REHAB UNIT PLAN OF CARE Name: HARLEEN ALVARES Room #: 516-1 ADM IN M.R.#: [id number] Admission: 01/23/19 ������������������ Attend Phys: Drake Contreras MD Discharge: ������������������ Date of : 36 Report #: [id number] THIS REPORT FOR: //name// CC: Drake Church DATE OF SERVICE: 01/26/2019 OVERALL PLAN OF CARE SUBJECTIVE: Please see the noted progress note from earlier today. PLAN: The overall plan of care is based on the preadmission screen, post-admission physician evaluation and information garnered from therapy assessments. 1. Estimated length of stay is probably 10 days to 2 weeks and likely longer if warranted. 2. Medical prognosis is reasonably good. 3. Anticipated interventions includes interdisciplinary acute inpatient rehabilitation program. 4. Anticipated functional outcomes would be for the patient to become modified independent at a walker level for mobility, ADLs, and improved communication, so that she can return back to the home setting. 5. Discharge destination would be back home with her male friend. She has a sister and a niece, who lives down the street as well. 6. Expected therapy by discipline includes PT, OT and speech 1 hour per day each five days a week throughout the duration of the acute inpatient rehabilitation stay. ��������������������������������������������� ���������������������������������������� By: ��������������������������������������������� [phone] Drake Contreras MD /PMT
[2019-01-23] MEDS ORDERED: PACERONE 200 M200 M1 PO (17:05)
[2019-01-23] MEDS ORDERED: ADULT LOW DOSE81 MG PO (17:06)
[2019-01-23 18:00] VITALS: BP 169/96
--- NOTE | 2019-01-23 19:54 | NUR ---
ASSUMED CARE AT APPROX 1800. PATIENT APHASIC, UNABLE TO VERBALIZE RESPONSES, REPEATING BACK WORD FOR WORD QUESTIONS FROM STAFF. VSS. WOULD NOD OR SHAKE HER HEAD TO QUESTIONS, SEEMINGLY UNRELIABLEY. FAMILY DAUGHTER AT BEDSIDE TO ASSIST WITH ADMISSION, UNABLE TO GIVE FULL HISTORY. PATIENT'S FAMILY DENIED THAT PATIENT HAD ANY CARDIAC RELATED MEDICAL HISTORY. ADMISSION HISTORY/ASSESSMENT COMPLETED. MEDICATION ORDERS FAXED TO PHARMACY. FALL PRECAUTIONS IN PLACE. PATIENT RESTING IN BED AT CHANGE OF SHIFT.
--- NOTE | 2019-01-24 03:55 | NUR ---
TOLERATING PILLS ONE AT A TIME WITH APPLESAUCE AND FOLLOWED WITH MEDIUM-SIZED SIPS OF WATER. DAUGHTER AT BEDSIDE POINTED OUT THAT THERE IS A PILL PINKING MACHINE OPERATOR IF SHE NEEDS IT BUT SHE HAS NOT BEEN USING IT SINCE SHE FIRST CAME TO HOSPITAL. TURNED Q2H PER OUR "CLOCK" SCHEDULE. HAS BEEN INCONTINENT OF EACH TIME WITH VARYING AMOUNTS. RAILROAD CAR REPAIRMAN/FRIEND STAYING OVERNIGHT. PLEASANT,QUIET,SLEEPING WELL
[2019-01-24 08:31] VITALS: BP 162/78
--- NOTE | 2019-01-24 12:30 | NUR ---
chart review. cm visited with pt while she up sitting in recliner chair. intro to cm, transition of care, home health, and team meeting. pt has flat affect, pleasant, quite, a & o x 2-3 with some forgetfulness. pt did reported " home with friend, whole lot step with hand rail. independent prior to hospital. own medication, own food, not working retired. no home health or rehab before"/alan. will cont following as needed for dc needs.
--- NOTE | 2019-01-24 15:49 | NUR ---
Nutrition: pt admitted to rehab unit with acute left CVA. Has some aphasia. Consult received for admit to rehab unit. On mechanically altered chopped diet for mild dysphagia. Hx CKD, also on renal diet. Would rec liberalize to low sodium only. PO recorded as < 50% of meals so far but nsg reports family brought in outside food yesterday. Weight hx shows 140-150# UBW trends, No recent change. Follow intake trends for need to add supplement but consider low risk at this time.
--- NOTE | 2019-01-24 18:30 | NUR ---
ASSUMED CARE AT APPROX 0715. PATIENT ALERT. ORIENTED TO PERSON. APHASIC. RESPONDING WITH ONE WORD ANSWERS, NODDING OR SHAKING HEAD. UP X1 ASSIST GB AND WALKER. AMBULATED TO TOILET THIS DATE. UNABLE TO VOID, INCONTIENT X3 THIS DATE OF LARGE AMOUNTS OF URINE. DRESSING TO LEFT HAND CHANGED THIS DATE, SITE NOT DRAINING, FOAM DRESSING REPLACED FOR PROTECTION. MEDS GIVEN PER ORDERS. ROUNDED ON HOURLY. REPOSITIONED Q2. SKIN NEGATIVE FOR BREAKDOWN. FALL PRECAUTIONS IN PLACE. WILL CONTINUE TO MONITOR.
[2019-01-24 20:54] VITALS: BP 176/88
--- NOTE | 2019-01-25 01:34 | NUR ---
PT ALERT AND ORIENTED X 1, UNABLE TO STATE DATE. UP IN RECLINER ALL EVENING. ASSISTED TO BED PER 1 ASSIST WITHOUT DIFFICULTY. INCONT OF URINE. LEFT ARM AND HAND EDEMATOUS. ELEVATED ON PILLOW. PT TOOK HS MEDS IN APPLESAUCE WITHOUT DIFFICULTY. PT DENIES PAIN OR DISCOMFORT. BED ALARM ON FOR SAFETY. PT CHECKED ON HOURLY ROUNDS.
[2019-01-25 07:45] VITALS: BP 182/73
--- NOTE | 2019-01-25 13:55 | NUR ---
team meeting recommendation: re team
[2019-01-25 19:45] VITALS: BP 163/96
--- NOTE | 2019-01-26 01:57 | NUR ---
PT ALERT AND ORIENTED X 1. EXPRESSIVE APHASIA. INCONT OF URINE AND STOOL. LEFT ARM REMAINS SWOLLEN. ELEVATED ON PILLOW. PT HAD LARGE LOOSE BROWN STOOL. PT DENIES PAIN OR DISCOMFORT. BED ALARM ON FOR SAFETY. PT APPEARS TO BE SLEEPING ON HOURLY ROUNDS. PT SIGNED DPOA PAPERWORK WITH SERAFIN BY CL STONER OUT. NAMED DAUGHTER SUN DPOA.
[2019-01-26 06:11] LABS: ABSOLUTE NEUTROPHILS 3.3 thou/uL (1.4-8.2); BASOPHILS 0.8 % (0.0-2.0); EOSINOPHILS 1.9 % (0.0-3.0); HEMATOCRIT 31.5 % (37.0-47.0); HEMOGLOBIN 10.9 gm/dL (12.0-15.0); LYMPHOCYTES 12.5 % (24.0-44.0); MCHC 34.7 g/dL (28.0-37.0); MCV 80.7 fL (80.0-100.0); PLATELET COUNT 212 thou/uL (150-400); POLYS 73.8 % (36.0-66.0); RDW 15.9 % (10.5-14.5); WBC 4.5 thou/uL (4.0-11.0)
[2019-01-26 06:34] LABS: CALCIUM 9.5 mg/dL (8.5-10.1); MAGNESIUM 2.3 mg/dL (1.8-2.4); POTASSIUM 3.4 mmol/L (3.5-5.1)
[2019-01-26 08:30] VITALS: BP 147/84
--- NOTE | 2019-01-26 09:30 | NUR ---
ASSUMED CARE AT 0700. PATIENT IS ALERT AND ORIENTED TO PERSON. PATIENT HAS RIGHT SIDED WEAKNESS > THEN LEFT. PATIENT HAS EXPRESSIVE APHAGIA. LUNGS ARE CLEAR. ABD IS SOFT WITH BSX4. PATIENT IS INCONTINENT OF B & B. PATIENT HAS S.L. IN HER RIGHT FORARM. PATIENT IS UP WITH ASSIST OF 1 STAFF AND GAIT BELT AND WALKER. FALL AND SAFETY PROTOCOLS IN PLACE. DENIES ANY PAIN AT THIS TIME. CONTINUES TO PROGRESS TOWARDS D/C GOALS. WILL CONTINUE TO MONITER.
[2019-01-26 20:56] VITALS: BP 181/97
--- NOTE | 2019-01-27 03:50 | NUR ---
APPRECIATES SITTING UP IN CHAIR THROUGHOUT EVENING AND CHOSE TO HAVE HER MEDS WITH APPLESAUCE, THEY WERE GIVEN ONE AT A TIME. TURNED Q 2 HOURS. DYLON IS STAYING OVERNIGHT AND STATES SHE SOMETIMES CALLS OUT TO HIM WHEN SHE NEEDS SOMETHING. TOLERATING SIPS OF WATER WITH CUP AND NO STRAW
--- NOTE | 2019-01-27 08:05 | NUR ---
I have reviewed the documentation by ELIZABETH MEJIA from 01/26/19 to 01/26/19 and I concur with it. ANDER GANN
[2019-01-27 09:05] VITALS: BP 146/73
--- NOTE | 2019-01-27 18:37 | NUR ---
ASSUMED CARE OF PATIENT AT APPROXIMATELY 0715. PATIENT IS A&OX4 WITH PERIODS OF FORGETFULNESS, ESPECIALLY WHEN FATIGUED. VITAL SIGNS ARE STABLE. PATIENT DENIES PAIN AND PARTICIPATED IN SCHEDULED THERAPIES. PATIENT HAS FAMILY MEMBERS AT THE BEDSIDE. PATIENT STATED THAT THE THERAPISTS TOOK OUT HER EARINGS THIS MORNING AND NEVER GAVE THEM BACK. NURSING WILL LEAVE MESSAGE FOR THERAPY REGUARDING EARINGS. FALL PRECAUTIONS IN PLACE AND NURSING WILL CONTINUE TO MONITOR PATIENT.
[2019-01-27 22:11] VITALS: BP 150/69
--- NOTE | 2019-01-28 01:10 | NUR ---
PT ALERT AND ORIENTED X 4. EXPRESSIVE APHASIA. INCONT OF URINE. PT DENIES PAIN OR DISCOMFORT. TURNED Q2H. BED ALARM ON FOR SAFETY. PT APPEARS TO BE SLEEPING ON HOURLY ROUNDS.
[2019-01-28 07:55] VITALS: BP 146/66
--- NOTE | 2019-01-28 15:14 | NUR ---
I have reviewed the documentation by ELIZABETH MEJIA from 01/28/19 to 01/28/19 and I concur with it. ANDER GANN
--- NOTE | 2019-01-28 19:13 | NUR ---
AAAX4. VERY PLEASANT AND COOPERTIVE. DOES NOT SPEAK VERY MUCH BUT DOES ANSWER QUESTIONS. FAIR APPETITE FEEDS SELF. UP IN CHAIR MOST OF DAY AND WORKS WITH THERAPIES WITH GOOD PROGRESS TOWARD GOALS.
[2019-01-28 20:37] VITALS: BP 177/87
[2019-01-29 01:31] LABS: URINE BILIRUBIN NEGATIVE (Negative); URINE BLOOD NEGATIVE (Negative); URINE CLARITY CLEAR; URINE COLOR YELLOW; URINE GLUCOSE-RANDOM* NEGATIVE (Negative); URINE KETONES NEGATIVE (Negative); URINE LEUKOCYTES-REFLEX 1+ (Negative); URINE NITRITE-REFLEX NEGATIVE (Negative); URINE PROTEIN (DIPSTICK) 1+ (Negative); URINE SPECIFIC GRAVITY 1.015 (1.005-1.035); URINE UROBILINOGEN 0.2 E.U./dl (0.2-1.0)
[2019-01-29 01:43] LABS: BACTERIA-REFLEX >30 Many /HPF (None Seen); CASTS None Seen /LPF (None Seen); CRYSTALS None Seen /LPF (None Seen); MUCUS None Seen strn/LPF (None Seen); SQUAMOUS None Seen /LPF (0-3); URINE RBC 0-2 Rare /HPF (0-2); URINE WBC-REFLEX >25 Many /HPF (0-5); WBC CLUMPS Few (None Seen)
--- NOTE | 2019-01-29 01:51 | NUR ---
PT ASSESSMENT COMPLETED AND VSS. MEDS GIVEN ORDERED AND WELL TOLERATED. FALL PRECAUTIONS IN PLACE. INC OF LARGE AMOUNTS OF VERY STRONG SMELLING URINE. PER ORDERS STRAIGHT CATH FOR URINE SAMPLE COMPLETED AND SENT TO LAB. PENDING. SUPPORTIVE FAMILY AT BEDSIDE. ASST WITH REPOSITION FOR COMFORT. SLEEPING WELL. PRN TYLENOL HELPFUL FOR GENERALIZED PAIN. WILL CONTINUE TO MONITOR FREQUENTLY.
[2019-01-29 09:30] VITALS: BP 140/75
--- NOTE | 2019-01-29 10:27 | NUR ---
ASSUMED CARE AT 0700. PATIENT IS ALERT AND ORIENTED ,BUT FORGETFUL. PATIENT HAS RIGHT SIDED WEAKNESS > THEN THE LEFT. LUNGS ARE CLEAR AND DEMINISHED. ABD IS SOFT WITH BSX4. PATIENT STARTED ON ABT FOR UTI. NO ADVERSE AFFECTS NOTED. UP TO THE BATHROOM TO VOID ELLEN COLORED URINE. FALL AND SAFETY PROTOCOLS IN PLACE. DENIES ANY PAIN AT THIS TIME. CONTINUE TO PROGRESS SLOWLY TOWARDS D/C GOALS. UP IN THE CHAIR FOR BREAKFAST. WILL CONTINUE TO MONITER.
[2019-01-29 19:30] VITALS: BP 162/71
--- NOTE | 2019-01-30 06:12 | NUR ---
PT ASSESSMENT COMPLETED AND VSS. MEDS GIVEN ORDERED AND WELL TOLERATED. FALL PRECAUTIONS IN PLACE. SUPPORTIVE SON AT BEDSIDE. PT DOING WELL DURING THE NIGHT. REPOSITIONING ORDERED. EARLY THIS MORNING PT STARTING CRYING OUT THAT SHE WAS IN PAIN BUT SHE WASN'T ABLE TO TELL STAFF WHERE THE PAIN WAS LOCATED. VSS AND SAT STABLE AT THE TIME. CONTACTED CHIOMA MELO. PER ORDERS GOT A STAT EKG AND TROPININ. NO NEW ORDERS AT THIS TIME. NEG TROPONIN AND CHIOMA MELO REVIEWED EKG. NO CONCERNS REGARDING THE EKG. PT NOW COMFORTABLE AND SLEEPING WELL. SON STATED THAT HIS MOM DOES THIS WHEN HE IS GETTING READY TO GO OUT OF TOWN BECAUSE SHE DOES NOT WANT HIM TO LEAVE AND HE WAS JUST GETTING TO LEAVE HER SIDE FOR [place]. WILL CONTINUE TO MONITOR CLOSELY.
--- NOTE | 2019-01-30 14:53 | NUR ---
ASSUMED CARE AT APPROX 0715. PATIENT AWAKE, DROWSY AT TIMES. ORIENTED TO PERSON, SITUATION. PATIENT GIVES SHORT RESPONSES THIS DATE, WITHDRAWN. DENIES PAIN. VSS. PATIENT'S EX- BARBARA VISITED PATIENT WITH FAMILY'S PERMISSION. AT BEDSIDE DURING LUNCH. MEDS GIVEN PER ORDERS. PATIENT ASSISTING WITH TURN Q2. REFUSED AMBULATING AND GETTING UP TO CHAIR, WILL CONTINUE TO ENCOURAGE TRANSFERING PART OF THERAPY. INCONTINENT OF URINE AND BM THIS DATE. TOTAL LEONARDA FOR CLEANING. WARM COMPRESS PROVIDED FOR LEFT WRIST. PATIENT EDUCATED ON CIPRO, UTI, AND INCREASING FLUID INTAKE.
[2019-01-30 19:46] VITALS: BP 156/78
--- NOTE | 2019-01-30 23:47 | EKG ---
[address] [place] [address] ELECTROCARDIOGRAM REPORT Name: HARLEEN ALVARES Room #: 516-1 ADM IN M.R.#: [id number] ������������������ Admission: 01/23/19 ������������������ Attend Phys: Drake Contreras MD Discharge: ������������������ Date of : 37 Report #: [id number] ����������������������������������������������������������������� [id number] THIS REPORT FOR: //name// [facility] Test Date: 2019-01-30 Test Time: 03:21:16 Pat Name: HARLEEN ALVARES Department: Room: [facility] Gender: F Second Cutter: gatito : 1935 Requested By: Josseline Gee Order Number: [id number] MD: Daniel Medley Measurements Intervals [place] Rate: 70 P: 33 CA: 207 QRS: 6 QRSD: 93 T: 126 QT: 526 QTc: 568 Interpretive Statements Sinus rhythm Consider V2V3 reversal Prolonged QT interval Non specific ST/T wave changes Compared to ECG 01/22/2019 11:23:36 Prolonged QT interval now present Atrial fibrillation no longer present Electronically Signed On 01-30-2019 23:47:35 CDT by Daniel Medley [email or web address] ��������������������������������������������� <ELECTRONICALLY SIGNED> ���������������������������������������� By: Daniel Medley MD ��������������������������������������������� 01/30/19 2347 [id number] Daniel Medley MD /EPI
--- NOTE | 2019-01-31 01:15 | NUR ---
PT ALERT AND ORIENTED X 4. EXPRESSIVE APHASIA. INCONT OF URINE. PT TOOK HS MEDS IN APPLESAUCE WITHOUT DIFFICULTY. PT DENIES PAIN OR DISCOMFORT. BED ALARM ON FOR SAFETY. PT APPEARS TO BE SLEEPING ON HOURLY ROUNDS.
--- NOTE | 2019-01-31 11:42 | NUR ---
PATIENT CARE WAS ASSUMED AT 0715.PATIENT IS ALERT AND ORIENTED X4.HAS SOME AHASIA.WHEN PATIENT IS TALKS SHE HAS A FLAT AFFECT.PT SEEMS TO BE WITHDRAWN.PY IS ABLE TO AMBULATE X1 ASSIST WITH WALKER.INCONTIENT OF BOWEL AND BLADDER.BRIEF IS IN PLACE.WHEN PATIENT IS LAYING SHE NEEDS TO BE TURNED Q2 HOURS.PT TAKES MEDS WITH APPLESAUCE.HAS HISTORY OF STROKES IN THE [place] AND CURRENT.HAS WEAKNESS ON BOTH SIDE MORE ON THE LEFT.PT IS UP IN CHAIR WITH NO ISSUES.FALL PRECAUTIONS ARE IN PLACE, CALL LIGHT, AND PHONE AND PERSONAL BELONGINGS ARE WITHIN REACH.
--- NOTE | 2019-01-31 13:18 | NUR ---
Nutrition: Pt continues on mechanically altered chopped diet for dysphagia. Intake poor 5-50% last several days with depression noted. Remeron started. Pt unable to voice food preferences for RD. Discussed supplement use with pt and she agrees to chocolate ensure BID. Discussed importance of good nutrition and encouraged improved oral intake. No new weight but prior weight was within pt's normal range of 140-150#. Continue to recommend discontinue renal diet restriction-not indicated with poor intake.
[2019-01-31 20:52] VITALS: BP 164/75
--- NOTE | 2019-02-01 00:52 | NUR ---
PT ALERT AND ORIENTED X 4. EXPRESSIVE APHASIA. INCONT OF URINE. TURNED Q2H. PT TOOK HS MEDS IN APPLESAUCE WITHOUT DIFFICULTY. PT DENIES PAIN OR DISCOMFORT. BED ALARM ON FOR SAFETY. PT APPEARS TO BE SLEEPING ON HOURLY ROUNDS.
[2019-02-01 06:01] LABS: ABSOLUTE NEUTROPHILS 4.3 thou/uL (1.4-8.2); BASOPHILS 0.4 % (0.0-2.0); HEMATOCRIT 28.7 % (37.0-47.0); HEMOGLOBIN 10.1 gm/dL (12.0-15.0); LYMPHOCYTES 16.5 % (24.0-44.0); MCH 28.4 pg (26.0-34.0); MCHC 35.1 g/dL (28.0-37.0); MONOCYTES 8.5 % (1.0-8.0); PLATELET COUNT 270 thou/uL (150-400); POLYS 72.6 % (36.0-66.0); RBC 3.54 mil/uL (4.20-5.00); RDW 16.1 % (10.5-14.5); WBC 5.9 thou/uL (4.0-11.0)
[2019-02-01 06:23] LABS: CALCIUM 9.9 mg/dL (8.5-10.1); CREATININE 2.9 mg/dL (0.6-1.0); MAGNESIUM 2.3 mg/dL (1.8-2.4); POTASSIUM 3.5 mmol/L (3.5-5.1)
[2019-02-01 07:15] VITALS: BP 163/71
--- NOTE | 2019-02-01 10:48 | NUR ---
ASSUMED CARE AT 0700. PATIENT IS ALERT AND ORIENTED, BUT HAS EXPRESSIVE APHAGIA. PATIENT HAS RIGHT SIDED WEAKNESS. LUNGS ARE CLEAR. ABD IS SOFT WITH BSX4. PATIENT IS INCONTINENT OF B & B. NO SKIN ISSUES. FALL AND SAFETY PROTOCOLS IN PLACE. DENIES ANY PAIN AT THIS TIME. CONTINUS TO PROGRESS TOWARDS D/C GOALS. WILL COINTINUE TO MONITE.
--- NOTE | 2019-02-01 13:01 | NUR ---
team meeting, recommendation : dc with hh (lynn,pt,ot,st,bath aid, and sw), initial supervision, medication manage and fin bills management. fww.
--- NOTE | 2019-02-01 16:01 | H ---
[facility] [place] [address] HISTORY AND PHYSICAL Name: HARLEEN ALVARES Room #: 516-1 ADM IN M.R.#: [id number] Admission: 01/23/19 ������������������ Attend Phys: Drake Contreras MD Discharge: ������������������ Date of : 36 Report #: [id number] THIS REPORT FOR: //name// CC: Drake Church DATE OF SERVICE: 01/23/2019 HISTORY OF PRESENT ILLNESS: The patient is an 83-year-old -Mozamb[place] female who originally presented to [facility] with acute mental status changes, was diagnosed with an acute left hemispheric CVA, left middle cerebral artery, absent flow. With consultation did not think that thrombectomy was appropriate. She was noted to have hypertensive urgency and atrial fibrillation with rapid ventricular response. She was admitted to the ICU, followed by Neurology, Cardiology, geriatrics and Hospitalist services. She does have a prior CVA and had residual left-sided weakness. This is a right-sided CVA. She has had significant functional decline and has aphasia with right hemiparesis, superimposed on her prior left hemiparesis as a residual. She has now been admitted for acute in-hospital inpatient rehabilitation. PAST MEDICAL HISTORY: Includes hypertension, hyperlipidemia, multiple CVAs, TIA, chronic kidney disease, liver mass. PAST SURGICAL HISTORY: Hysterectomy and cataract surgery. MEDICATIONS: Please see the full medication listing. This includes vitamins, herbals, and supplements. ALLERGIES: CODEINE, IODINE, MORPHINE, AND MEPERIDINE. FAMILY HISTORY: Not pertinent. HABITS: No history of tobacco or alcohol abuse. SOCIAL HISTORY: The patient lives at home with her male friend. Has four entry stairs was able to stay on the main level of her home. Friend provided IADLs. She apparently was independent with ADLs, had a 4-wheeled walker and a wheelchair at home, but was not using on a daily basis. There is a sister and niece lives down the street and able to provide assistance. REVIEW OF SYSTEMS: Limited with her aphasia and limited verbalizations. No fever, chills, chest pain, shortness of breath, abdominal discomfort. She has the weakness with the CVAs and the difficulty with her communication. No obvious bowel or bladder changes or focal extremity pain complaints. [address] [address] HISTORY AND PHYSICAL Name: HARLEEN ALVARES Room #: 61 ADM IN M.R.#: [id number] Admission: 01/23/19 ������������������ Attend Phys: Drake Contreras MD Discharge: ������������������ Date of : 36 Report #: [id number] PHYSICAL EXAMINATION: GENERAL: The patient is an 83-year-old -Moz[place] female in no obvious distress. She has minimal verbalizations. VITAL SIGNS: Temperature 98.2, pulse 84, respirations 18, blood pressure 169/96. She was able to repeat the name of the hospital. She was in with my prompting. We will follow basic 1 step commands. Otherwise, a very limited verbalizations. Appears to have a right facial droop. CHEST: Sounded clear to auscultation. CARDIOVASCULAR: Sounded regular with extra beats. ABDOMEN: Bowel sounds positive, nontender. GENITOURINARY AND RECTAL: Deferred. EXTREMITIES: She elevates her left upper extremity on a pillow. There is some tenderness to light touch of the left upper extremity. She was able to move that left arm, probably a grade 3+/5 with shoulder flexion, elbow extension. 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 Right upper extremity, she was able to move that right upper extremity, probably a grade 3/5. 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 Lower extremity appeared a little better. I would say strength is probably a grade 3+/5-4 minus. Negative Rosas's both upper extremities. No clonus. No focal calf swelling. No lower extremity distal pedal edema. ASSESSMENT: This is an 83-year-old female with the following problems: 1. Left middle cerebral artery cerebrovascular accident. 2. Right hemiparesis. 3. Aphasia. 4. History of a prior right cerebrovascular accident with left hemiparesis. 5. Left middle cerebral artery, absent flow. 6. Hypertensive urgency. 7. Atrial fibrillation with rapid ventricular rate. 8. Hyperlipidemia. PLAN: The patient has been admitted for acute in-hospital inpatient rehabilitation. From a postadmission physician evaluation perspective, there are no relevant changes since the preadmission screening. Please see the above review of prior and current medical and functional conditions and comorbidities. Please see the patient's previous and current functional status. As far as risk of complications, the patient has multiple medical comorbidities as noted above. Initial plan of care involves the interdisciplinary acute inpatient rehabilitation program with the goal of maximizing the patient's functional independence, so she can hopefully return back to her prior living situation. Measurable functional goals would be for the patient to improve with functional mobility and ADLs, so that she can return back to the home setting. She has been needing more assistance was mod assist last noted for transfers. Prognosis is reasonably good with estimated length of stay probably fairly long at least 2-3 weeks and likely longer. [facility] [address] [place] [address] HISTORY AND PHYSICAL Name: HARLEEN ALVARES Room #: 516-1 ADM IN M.R.#: [id number] Admission: 01/23/19 ������������������ Attend Phys: Drake Contreras MD Discharge: ������������������ Date of : 36 Report #: [id number] Potential barriers would include her multiple medical comorbidities and decreased functional status. ��������������������������������������������� <ELECTRONICALLY SIGNED> ���������������������������������������� By: Drake Contreras MD ��������������������������������������������� 02/01/19 1601 0827 0857 Drake Contreras MD /nt
[2019-02-01 20:05] VITALS: BP 161/85
--- NOTE | 2019-02-02 04:32 | NUR ---
A/O X4, VERY SOFT SPOKEN, LEFT ARM STILL WITH ASSITANCE WITH MOVEMENT, GOOD STRONG PEDAL PUSHES, DENIES PAIN, TOLERATING AND SWALLOWED PILLS WITH NOC COUGH NOTED, NO STRAWS FOR DRINKING, INCONTNENT OF URINE, TURNED EVERY 2 HOURS, MONITORED.
[2019-02-02 07:58] VITALS: BP 152/82
--- NOTE | 2019-02-02 10:22 | NUR ---
cm spoke with daughter niraj via phone call. recommendation provied for dcp, of , hh, 24hr supervision, medication management and bills. education on hh ( pt,ot,st,nursing,sw,and bath aid). well what time do they come and how long?, education that hh would call her and sent up appointment when get home. " what kind of foods can she eat, does she need any new equip?"/daughter. verified that pt does have fww " yes she does but good luck on getter her to use that at home. going to need some support from therapy on that. going to spend night with her and my will go over during the day time"/daughter. offered from family training with therapy prior to dc " is fine if later in day would be best. 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 cm passed on information to physical therapy and their going to reach out to daughter to set up time for family training. cont with education on dcp and recommendation.
--- NOTE | 2019-02-02 11:47 | NUR ---
ASSUMED CARE AT 0700. PATIENT IS ALERT AND ORIENTED, BUT FORGETFUL. PATIENT MOVES HER RIGHT AND LEFT SIDED WEAKNESS. PATIENT IS UP WITH ASSIST OF 1 STAFF AND GAIT BELT. LUNGS ARE CLEAR. ABD IS SOFT WITTH BSX4. UP TO THE BATHROOM TO HAVE A SMALL BM. PATIENT WAS INCONTINENT OF URINE THIS A.M. AND DIDN'T KNOW THAT SHE WAS. UP IN THE CHAIR FOR MEALS. FALL AND SAFETY PROTOCOLS IN PLACE. DENIES ANY PAIN. CONTINUES TO PROGRESS TOWARDS D/C GOALS. WILL CONTINUE TO MONITER.
--- NOTE | 2019-02-02 14:35 | NUR ---
Patient participated in community reintegration on 02/02/19 with Physical Therapy. Refer to documentation by PT.
[2019-02-02 19:40] VITALS: BP 149/72
--- NOTE | 2019-02-03 00:41 | NUR ---
PT ASSESSMENT COMPLETED AND VSS. MEDS GIVEN ORDERED AND WELL TOLERATED. PRN TYLENOL HELPFUL FOR GENERALIZED DISCOMFORT. SUPPORTIVE DAUGHTER AT BEDSIDE. ASST WITH SCHEDULE REPOSITION. FALL PRECAUTIONS IN PLACE. SLEEPING WELL. WILL CONTINUE TO MONITOR FREQUENTLY.
[2019-02-03 05:31] LABS: ABSOLUTE NEUTROPHILS 3.9 thou/uL (1.4-8.2); BASOPHILS 0.4 % (0.0-2.0); EOSINOPHILS 2.1 % (0.0-3.0); HEMATOCRIT 27.7 % (37.0-47.0); HEMOGLOBIN 9.7 gm/dL (12.0-15.0); LYMPHOCYTES 12.9 % (24.0-44.0); MCH 28.2 pg (26.0-34.0); MCHC 34.9 g/dL (28.0-37.0); MONOCYTES 6.7 % (1.0-8.0); PLATELET COUNT 248 thou/uL (150-400); POLYS 77.9 % (36.0-66.0); RBC 3.42 mil/uL (4.20-5.00); RDW 16.2 % (10.5-14.5)
[2019-02-03 05:40] LABS: CALCIUM 9.9 mg/dL (8.5-10.1); CREATININE 2.7 mg/dL (0.6-1.0); MAGNESIUM 2.2 mg/dL (1.8-2.4); POTASSIUM 3.4 mmol/L (3.5-5.1)
[2019-02-03 08:00] VITALS: BP 138/57
--- NOTE | 2019-02-03 12:30 | NUR ---
cm spoke with daughter niraj via phone call to see if hh company had been chosen " what do you mean, i need to write this down and what who do i call, you said there was 3 thearpy"?/daughter. cont education on hh, cm team to send out referral, just needing to know what hh company to send it too from list provided yesterday of hh choices. " oh i do not know, i will have my aunt call you. 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 cm team to send referral for hh.
--- NOTE | 2019-02-03 15:41 | NUR ---
FAXED REFERRAL TO [facility] SPOKE WITH ADM. THEY RECEIVED FAXED AND CANNOT ACCEPT PT. AT DC THEY DO NOT HAVE ST IN THAT AREA. NOTIFIED [facility] OF REFERRAL THEY WILL REVIEW ANTICIPATE DC 02/08. DCP TO FOLLOW.
--- NOTE | 2019-02-03 18:24 | NUR ---
ASSUMED CARE OF PATIENT AT APPROXIMATELY 0720. PATIENT IS A&OX4, FORGETFUL, APPEARS TO BE WITHDRAWN, WITH FLAT AFFECT. VITAL SIGNS ARE STABLE. PATIENT EXPERIENCED INCONTINENCE OF BLADDER. PATIENT EXPRESSED PAIN TO THIS NURSE THIS MORNING RELATED TO CONSTIPATION. PROVIDER WAS NOTIFIED AND ORDERS FOR FLEET ENEMA WAS OBTAINED. ENEMA WAS ADMINISTERED BY THIS NURSE AND PATIENT HAS LARGE HARD BOWEL MOVEMENT. PATIENT EXPRESSED RELEIF FOLLOWING ENEMA AND BOWEL MOVEMENT. PATIENT REPORTED NO PAIN THIS SHIFT. MEDICATIONS WERE ADMINISTERED ONE AT A TIME IN APPLESAUCE AND PATIENT TOLERATED WELL. PATIENT EXHIBITED DECREASED APPETITE THIS EVENING. FALL PRECAUTIONS IN PLACE AND NURSING SHIFT WILL CONTINUE TO MONITOR THE PATIENT.
[2019-02-03 20:38] VITALS: BP 155/78
--- NOTE | 2019-02-04 01:09 | NUR ---
PT ASSESSMENT COMPLETED AND VSS. MEDS GIVEN ORDERED AND WELL TOLERATED. FALL PRECAUTIONS IN PLACE. ASST WITH FREQUENT TURNS ORDERED. SUPPORTIVE DAUGHTER AT BEDSIDE. INC OF URINE. SLEEPING WELL. WILL CONTINUE TO MONITOR FREQUENTLY.
[2019-02-04 09:59] VITALS: BP 145/60
[2019-02-04 10:19] VITALS: BP 155/68
--- NOTE | 2019-02-04 11:35 | EKG ---
[place] [address] [place] [address] ELECTROCARDIOGRAM REPORT Name: HARLEEN ALVARES Room #: 516-1 ADM IN M.R.#: [id number] ������������������ Admission: 01/23/19 ������������������ Attend Phys: Drake Contreras MD Discharge: ������������������ Date of : 36 Report #: [id number] ����������������������������������������������������������������� [id number] THIS REPORT FOR: //name// [facility] Test Date: 2019-02-04 Test Time: 11:23:52 Pat Name: HARLEEN ALVARES Department: Room: [facility] Gender: F Clerk Stenographer: David RAYMOND : 1935 Requested By: Hannah Yin Order Number: [id number] MD: Hany Driscoll Measurements Intervals [place] Rate: 75 P: 50 [place]: 214 QRS: 6 QRSD: 93 T: 140 QT: 422 QTc: 472 Interpretive Statements Sinus rhythm First-degree AV block Nonspecific ST segment–T-wave abnormalities Compared to ECG 01/30/2019 03:21:16 No significant change Electronically Signed On 02-04-2019 11:35:19 CDT by Hany Driscoll [email or web address] ��������������������������������������������� <ELECTRONICALLY SIGNED> ���������������������������������������� By: Hany Driscoll MD ��������������������������������������������� 02/04/19 1135 [id number] Hany Driscoll MD /EPI
[2019-02-04 11:48] LABS: ANION GAP 10 mmol/L (7-16); BUN 44 mg/dL (7-18); CALCIUM 10.1 mg/dL (8.5-10.1); CHLORIDE 101 mmol/L (98-107); CO2 29 mmol/L (21-32); CREATININE 2.8 mg/dL (0.6-1.0); GLUCOSE 173 mg/dL (74-106); POTASSIUM 3.7 mmol/L (3.5-5.1); SODIUM 140 mmol/L (136-145); TROPONIN-I <0.06 ng/mL (<0.06)
--- NOTE | 2019-02-04 19:33 | NUR ---
ASSUMED CARE AT APPROX 0715. PATIENT ALERT. ORIENTED TO PERSON, SELF, AND SITUATION. VSS. WITHDRAWN, FLAT AFFECT. DEPRESSED APPETITE, DECREASED INITIATION TO FEED HERSELF OR DRINK FLUIDS. PHSYCHIATRY CONSULTED. PARTICIPATED IN SOME THERAPY, AFTERNOON PT SESSION VARIANCED. PATIENT REPORTED CHEST PAIN. ORDERS RECEIVED FOR EKG, LABS. RESULTS REPORTED TO PROVIDER. ORDERS RECEIVED. PATIENT UNABLE TO VOID TOWARDS END OF SHIFT. DENIED NEED TO URINATE, DENIED DYSURIA. BLADDER PALPABLE. BLADDER SCAN SHOWED >500 ML. ORDERS TO STRAIGHT CATH RECEIVED. NIGHT BREAKER HAND CONTACTED REGARDING RETENTION, LEFT MESSAGE. PATIENT RESTING IN BED. WILL CONTINUE TO MONITOR.
[2019-02-04 20:40] VITALS: BP 155/79
--- NOTE | 2019-02-05 03:00 | NUR ---
assumed care at approx 1900 evening 02/04. pt lying in bed with head of bed elevated at change of shift. pt very withdrawn, flat affect and not wanting to talk and/or answer questions. pt did take her hs meds with water tolerating well. lundy to dd with large amt yellow urine to bag. daughter staying the night sleeping in recliner at bedside. bed alarm on and call light in reach. will continue to monitor.
[2019-02-05 08:30] VITALS: BP 159/79
--- NOTE | 2019-02-05 10:40 | NUR ---
DURING OT THIS AM, PT WAS TAKEN TO THE TOILET. PER GLORY OT, SHE WAS C/O ANXIETY, AND HAD NOT SLEPT WELL ALL NIGHT, ALSO CONFIRMED BY PT'S DAUGHTER WHO IS AT THE BEDSIDE. ALPRAZOLAM 0.25 MG WAS GIVEN WITH HER AM MEDS, AND PT LATER ATE BREAKFAST AND DRANK ENSURE WITH MUCH ENCOURAGEMENT FROM HER DAUGHTER. PT VERBALIZED RELIEF OF HER ANXIETY NOW, AND IS GETTING BATHED BY HYDRAULIC RUBBISH COMPACTOR MECHANIC CURRENTLY, NO COMPLAINTS.
[2019-02-05 16:34] VITALS: BP 143/75
--- NOTE | 2019-02-05 19:11 | NUR ---
REPORT RECEIVED AT 1330 AND ASSUMED CARES. PT VISITING WITH SISTER IN ROOM, WITHDRAWN AND MAKING MINIMAL CONVERSATIONS. TRANSFERED TO BED WITH 1 PERSON MINIMAL ASSIST AND REPOSITIONED Q2H. REQUIRED ASSISTANCE FEEDING DINNER THIS EVENING, ATE 45% OF HER MEAL. VITALS REMAINED STABLE. Q1H VISUAL CHECKS. CALL LIGHT WITHIN REACH. FALL PRECAUTION IN PLACE
[2019-02-05 20:00] VITALS: BP 147/74
--- NOTE | 2019-02-06 01:58 | NUR ---
PT ALERT AND ORIENTED X 4, FLAT. CLARKE PATENT DRAINING CLEAR YELLOW URINE. PT TOOK HS MEDS IN APPLESAUCE WITHOUT DIFFICULTY. PT DENIES PAIN OR DISCOMFORT. BED ALARM ON FOR SAFETY. PT APPEARS TO BE SLEEPING ON HOURLY ROUNDS. DAUGHTER HERE DURING THE NIGHT.
[2019-02-06 09:28] VITALS: BP 141/73
--- NOTE | 2019-02-06 14:41 | NUR ---
ASSUMED CARE AT APPROX 0715. PATIENT AWAKE. ORIENTED TO PERSON AND SITUATION. FLAT AFFECT, GIVES ONE WORD RESPONSES OR DOES NOT ATTEND TO STAFF CUES. WITHDRAWN. VSS. PATIENT DENIES ANY PAIN. NEEDING CUES TO INITATE FEEDING/DRINKING. CLARKE TO DD, SECURED. PATIENT REPOSITIONED. FAMILY AT BEDSIDE, ENCOURAGING PATIENT TO EAT & DRINK. FALL PRECAUTIONS IN PLACE. BED BATH GIVEN, PATIENT TRANSFERED TO CHAIR. ROUNDED ON HOURLY. WILL CONTINUE TO MONITOR.
[2019-02-06 20:10] VITALS: BP 152/68
--- NOTE | 2019-02-07 01:10 | NUR ---
PT ALERT AND ORIENTED X 4. CLARKE PATENT DRAINING ADEQUATE AMTS CLEAR YELLOW URINE. PT TOOK HS MEDS IN APPLESAUCE WITHOUT DIFFICULTY. PT DENIES PAIN OR DISCOMFORT. BED ALARM ON FOR SAFETY. PT APPEARS TO BE SLEEPING ON HOURLY ROUNDS.
[2019-02-07 09:54] VITALS: BP 135/55
--- NOTE | 2019-02-07 10:25 | NUR ---
PT UP IN BEDSIDE CHAIR ASSIST XS 1. GIVEN PRN PAIN MED STATES RIGHT LOWER EXTREMITY WAS HURTING. HAS CLARKE WITH CLEAR YELLOW URINE IN CLARKE TUBING AND BAG. PT HAS LEFT SIDE WEAKNESS. TAKES MEDS IN APPLESAUCE. PT IS PLEASANT AND COOPERATIVE WITH CARE. PT SPOKE WITH SISTER ON THE PHONE.
--- NOTE | 2019-02-07 13:52 | NUR ---
PT'S CLARKE DCD AT THIS TIME 400 CC IN CLARKE BAG URINE CLEAR YELLOW. PT GIVEN BISACODYL 10 MG ALSO GIVEN AT THIS TIME. WAS UP IN BEDSIDE CHAIR NOW RESTING IN BED UNIT FAMILY COMES IN.
--- NOTE | 2019-02-07 14:06 | NUR ---
cm received 2 phone calls from daughter niraj stated " how mom doing and what is plan for dc tomorrow, what time is she being released?"/daughter. re-education that when family can get her will have her ready for dc home with [facility] ( pt, ot, st , nursing ,bath aide and sw) 24hr supervision. " well when will the bed and wheel chair get here. i will pick her up at 1730 after work "/niraj. education that hosptial bed was not recommended nor w/c oh good that will make her happy, still need list of food choice she can eat at home. "/daughter, cm asked if daughter was still coming for family training with therapy at 1430 today, "will i never set that up, who did"/niraj. reminded her that she spoke with physical therapy last week and appointment was made then " oh well i am at work downtown and will not get there by then"/daughter. call dropped. cm notified therapy team of change and daughter called back again " i can do training tomorrow?, what time?"/niraj. discussed with pt and daughter going to come in around 0830 and then will dc in am.
--- NOTE | 2019-02-07 15:00 | NUR ---
PT RESTING IN BED AT THIS TIME. PT IS SLEEPING.
--- NOTE | 2019-02-07 15:16 | NUR ---
I have reviewed the documentation by ELIZABETH MEJIA from 02/07/19 to 02/07/19 and I concur with it. ANDER GANN
--- NOTE | 2019-02-07 15:36 | NUR ---
PT WORKING WITH THERAPY PATIENT STATES SHE WANTS TO GO HOME BUT SHE IS SCARED HAS HAD 24/7 HELP HERE AT HOSPITAL AND IS NERVOUS ABOUT GOING HOME.PT IS GOING TO GET UP AND WORK WITH THERAPIST ON AMBULATION AND STAIRS TODAY.
[2019-02-07] MEDS ORDERED: SENNA-TIME S T1 EACH PO (15:51)
[2019-02-07] MEDS ORDERED: PACERONE 200 M200 M1 PO (15:51)
[2019-02-07] MEDS ORDERED: REMERON 30 MG T30 M1 PO (15:51)
[2019-02-07] MEDS ORDERED: LIPITOR10 MG PO (15:51)
[2019-02-07] MEDS ORDERED: FLOMAX0.4 MG PO (15:51)
[2019-02-07] MEDS ORDERED: MIRALAX17 GM PO (15:51)
[2019-02-07 19:35] VITALS: BP 144/67
--- NOTE | 2019-02-08 01:00 | NUR ---
PT ASSESSMENT COMPLETED AND VSS. MEDS GIVEN ORDERED AND WELL TOLERATED. FALL PRECAUTIONS IN PLACE. SUPPORTIVE DAUGHTER AT BEDSIDE. DAUGHTER ASKING HOW MUCH CARE HER MOTHER WILL NEED AT DISCHARGE. DAUGHTER SEEMED TO BE SUPRISED THAT PT WOULD NEED HELP AROUND THE CLOCK. SHE MENTIONED THAT SHE NEEDED TO WORK AND COULDN'T AFFORD HOME CARE. SHE SAID SHE WOULD NEED TO FIGURE SOMETHING OUT. PT SLEEPING. TURNED FREQUENLY ORDERED. PT ANXIOUS ABOUT D/C PLANS. WILL CONTINUE TO MONITOR FREQUENTLY.
[2019-02-08 05:44] LABS: ABSOLUTE NEUTROPHILS 4.7 thou/uL (1.4-8.2); BASOPHILS 0.3 % (0.0-2.0); EOSINOPHILS 0.7 % (0.0-3.0); HEMATOCRIT 25.4 % (37.0-47.0); HEMOGLOBIN 8.7 gm/dL (12.0-15.0); LYMPHOCYTES 10.8 % (24.0-44.0); MCH 28.3 pg (26.0-34.0); MCHC 34.3 g/dL (28.0-37.0); MCV 82.5 fL (80.0-100.0); MONOCYTES 7.7 % (1.0-8.0); PLATELET COUNT 198 thou/uL (150-400); POLYS 80.5 % (36.0-66.0); RBC 3.08 mil/uL (4.20-5.00); RDW 16.4 % (10.5-14.5); WBC 5.9 thou/uL (4.0-11.0)
[2019-02-08 05:54] LABS: CALCIUM 9.6 mg/dL (8.5-10.1); CREATININE 2.8 mg/dL (0.6-1.0); MAGNESIUM 2.4 mg/dL (1.8-2.4); POTASSIUM 4.1 mmol/L (3.5-5.1)
--- NOTE | 2019-02-08 08:20 | NUR ---
daughter niraj called stated " oh my way but stuck in traffic and where am i supposed to go for training with therapy.?"/daughter. re-education to go to her mom room 516 and cm let 5n team know daughter stuck in traffic.
[2019-02-08] MEDS ORDERED: BISACODYL SUPP10 MG RECTAL (13:13)
[2019-02-08 13:17] VITALS: BP 144/67
--- NOTE | 2019-02-08 13:20 | NUR ---
PT. DISCHARGING TODAY TO HOME WITH [facility]. NOTIFIED [facility] ADM. THAT PT. DISCHARGING TODAY THEY WILL NOTIFY PT. TIME OF VISITS.
[2019-02-08 14:48] VITALS: BP 144/67
[2019-02-08] MEDS ORDERED: NORVASC10 MG PO (14:57)
--- NOTE | 2019-02-08 15:20 | NUR ---
ASSUMED CARE OF PT AT 0700. ASSESSMENT CHARTED. A&O,X4 - FLAT AFFECT AND FORGETFUL AT TIMES. DENIES PAIN. URINARY RETENTION NOTED, POSSIBLE D/C IF ABLE TO VOID. BLADDER TRAINING IN PROCESS. PT WAS NOT ABLE TO VOID ON TOLIET, BLADDER SCANNED 112. PT DOES NOT INITIATE NEED TO VOID. PT VOIDED 2OO ML ON TOLIET. POST BLADDER SCAN 001. DONTRELL NOTIFIED. WILL CONTINUE WITH D/C. NEW DISCHARGE ORDERS. DISCHARGE INFORMATION DISCUSSED WITH PT AND DAUGHTER BY CAPACITY PLANNING ENGINEER.
== END 2019-02-08 15:53 | disposition home health service (06) | DRG 56 ==
LOC: ENTRNSPT 02-08 15:05 → EDTRNSPTSTS 02-08 15:07
PROVIDERS: Hospitalist; Nurse Practitioner; ADMIT Physical Medicine & Rehabilitation
DX: I69.351 Hemiplegia and hemiparesis following cerebral infarction affecting right dominant side (principal); I63.9 Cerebral infarction, unspecified; I13.0 Hypertensive heart and chronic kidney disease with heart failure and stage 1 through stage 4 chronic kidney disease, or unspecified chronic kidney disease; N17.9 Acute kidney failure, unspecified; N39.0 Urinary tract infection, site not specified; R47.01 Aphasia; I16.0 Hypertensive urgency; I48.91 Unspecified atrial fibrillation; E87.6 Hypokalemia; N18.3 Chronic kidney disease, stage 3 (moderate); B96.20 Unspecified Escherichia coli [E. coli] as the cause of diseases classified elsewhere; K59.00 Constipation, unspecified; R33.9 Retention of urine, unspecified; F41.9 Anxiety disorder, unspecified; F32.9 Major depressive disorder, single episode, unspecified; I50.9 Heart failure, unspecified; G43.909 Migraine, unspecified, not intractable, without status migrainosus; E78.5 Hyperlipidemia, unspecified; Z86.73 Personal history of transient ischemic attack (TIA), and cerebral infarction without residual deficits; Z90.710 Acquired absence of both cervix and uterus; Z98.49 Cataract extraction status, unspecified eye; Z88.6 Allergy status to analgesic agent; Z88.8 Allergy status to other drugs, medicaments and biological substances; Z91.041 Radiographic dye allergy status; Z79.82 Long term (current) use of aspirin; Z79.899 Other long term (current) drug therapy
CPT/HCPCS: 10112

== ENCOUNTER → 2019-04-19 | Outpatient (CLI) | payer OTHER ==
[~2019-04-19] MED LIST changes: +ADULT LOW DOSE81 MG PO; +BISACODYL SUPP10 MG RECTAL; +FLOMAX0.4 MG PO; +LIPITOR10 MG PO; +PACERONE 200 M200 M1 PO; +REMERON 30 MG T30 M1 PO; +SENNA-TIME S T1 EACH PO
== END ==
LOC: RAD 14:23
DX: R05 Cough (principal); R06.02 Shortness of breath

== ENCOUNTER 2019-04-30 00:49 | Inpatient (IN) | payer OTHER ==
[2019-04-30] VITALS (8 sets, daily range): BP systolic 125–167; BP diastolic 67–84
[~2019-04-30] VITALS: Ht 162.6 cm; Wt 66.2 kg
[2019-04-30 01:35] LABS: ABSOLUTE NEUTROPHILS 14.2 thou/uL (1.4-8.2); HEMATOCRIT 26.6 % (37.0-47.0); HEMOGLOBIN 9.3 gm/dL (12.0-15.0); LYMPHOCYTES 1.3 % (24.0-44.0); MCH 27.7 pg (26.0-34.0); MCV 79.3 fL (80.0-100.0); MONOCYTES 4.9 % (1.0-8.0); PLATELET COUNT 258 thou/uL (150-400); POLYS 93.8 % (36.0-66.0); RBC 3.35 mil/uL (4.20-5.00); WBC 15.2 thou/uL (4.0-11.0)
[2019-04-30 01:40] LABS: URINE BILIRUBIN NEGATIVE (Negative); URINE BLOOD NEGATIVE (Negative); URINE CLARITY CLEAR; URINE COLOR YELLOW; URINE GLUCOSE-RANDOM* NEGATIVE (Negative); URINE KETONES NEGATIVE (Negative); URINE LEUKOCYTES-REFLEX NEGATIVE (Negative); URINE NITRITE-REFLEX NEGATIVE (Negative); URINE PROTEIN (DIPSTICK) 1+ (Negative); URINE UROBILINOGEN 0.2 E.U./dl (0.2-1.0)
[2019-04-30 01:52] LABS: ANION GAP 14 mmol/L (7-16); BUN 32 mg/dL (7-18); CALCIUM 9.8 mg/dL (8.5-10.1); CHLORIDE 98 mmol/L (98-107); CO2 26 mmol/L (21-32); CREATININE 3.6 mg/dL (0.6-1.0); GLUCOSE 128 mg/dL (74-106); MAGNESIUM 1.6 mg/dL (1.8-2.4); SODIUM 138 mmol/L (136-145); TROPONIN-I <0.06 ng/mL (<0.06)
[2019-04-30 01:53] LABS: POTASSIUM 2.5 mmol/L (3.5-5.1)
[2019-04-30 01:54] LABS: CASTS None Seen /LPF (None Seen); MUCUS None Seen strn/LPF (None Seen); SQUAMOUS 0-3 Few /LPF (0-3); URINE RBC None Seen /HPF (0-2); URINE WBC-REFLEX 0-5 Rare /HPF (0-5)
[2019-04-30 01:55] LABS: BACTERIA-REFLEX 1-9 Few /HPF (None Seen); CRYSTALS None Seen /LPF (None Seen)
--- NOTE | 2019-04-30 07:47 | NUR ---
RECEIVED REPORT FROM MATTHEW MADISON RN.PT ARRIVED TO ROOM 216 AT 0527 ACCOMPANIED BY HER DAUGHTER.ALERT,CONFUSED,ADMISSION DONE.REPORT GIVEN TO THE DAY SHIFT NURSE.WILL MONITOR AND CONTINUE POC.
--- NOTE | 2019-04-30 08:07 | NUR ---
ASSUMED CARE OF PT APPROX 0715, REPORT GIVEN THAT PT ARRIVED TO UNIT RIGHT BEFORE SHIFT CHANGE, SHE IS ACCOMPANIED BY DAUGHTER, MED REC TO BE DONE WHEN BOTH ARE MORE AWAKE, PT A&0X2, WILL FOLLOW REMAINING ORDERS AND CONTINUE TO MONITOR. PT'S CHART ISN'T IN ACCESS DATABASE DEVELOPER OVER TELE NOR AT NURSES STATION. WILL INVESTIGATE. ENCOURAGED PT AND DAUGHTER TO CALL FOR ANY NEEDS. NO DIET ORDERED SAVE FOR SUPPLEMENT, WILL CALL AND INFORM
[2019-04-30] MEDS ORDERED: ZOLOFT25 MG PO (08:16)
[2019-04-30] MEDS ORDERED: XANAX 0.25 MG0.25 MG PO (08:18)
--- NOTE | 2019-04-30 11:21 | EKG ---
[place] [address] [facility] [place] [address] ELECTROCARDIOGRAM REPORT Name: HARLEEN ALVARES Room #: 216-P ADM IN M.R.#: [id number] ������������������ Admission: 04/30/19 ������������������ Attend Phys: Edwin Cornelius MD Discharge: ������������������ Date of : 36 Report #: [id number] ����������������������������������������������������������������� [id number] THIS REPORT FOR: //name// [facility] ED Test Date: 2019-04-30 Test Time: 01:31:57 Pat Name: HARLEEN ALVARES Department: Room: 216 Gender: F Barkeep: alejandra : 1935 Requested By: Ryland Woods Order Number: [id number] MD: Walter Ibanez Measurements Intervals [place] Rate: 83 P: -27 FL: 194 QRS: 20 QRSD: 104 T: 119 QT: 464 QTc: 546 Interpretive Statements Sinus rhythm Nonspecific ST and T wave abnormality Prolonged QT interval Compared to ECG 02/04/2019 11:23:52 N[address] change in the ST and T-wave segments Prolonged QT interval now present Electronically Signed On 04-30-2019 11:21:46 CDT by Walter Ibanez [email or web address] ��������������������������������������������� <ELECTRONICALLY SIGNED> ���������������������������������������� By: Walter Ibanez MD, [place] [address]/13/19 1121 0131 0131 Walter Ibanez MD, [facility] /EPI
[2019-04-30 11:39] LABS: CALCIUM 9.9 mg/dL (8.5-10.1); CREATININE 3.2 mg/dL (0.6-1.0)
[2019-04-30 11:51] LABS: POTASSIUM 2.8 mmol/L (3.5-5.1)
--- NOTE | 2019-05-01 02:44 | NUR ---
ALERT.WILL ANSWER QUESTIONS AND DOESN'T APPEAR TO BE CONFUSED,JUST FORGETFULL. DAUGHTER IS IN THE ROOM WITH PATIENT.PATIENT DENIES PAIN INITIALLY THEN LATER COMPLAIN OF PAIN AFTER USING THE BEDSIDE COMMODE.TYLENOL GIVEN.PT START SNEEZING TOO AND DAUGHTER ASK TO GET AN ORDER FOR CLARITIN.WILL CALL IN AM.PT RESTING IN BED AND APPEARS TO BE SLEEPING.MONITOR SHOWS SR.WILL MONITOR AND CONTINUE POC.
[2019-05-01 04:06] VITALS: BP 139/71
[2019-05-01 05:20] LABS: ABSOLUTE NEUTROPHILS 5.5 thou/uL (1.4-8.2); BASOPHILS 0.3 % (0.0-2.0); EOSINOPHILS 0.2 % (0.0-3.0); HEMOGLOBIN 7.6 gm/dL (12.0-15.0); LYMPHOCYTES 7.2 % (24.0-44.0); MCH 27.3 pg (26.0-34.0); MCHC 34.4 g/dL (28.0-37.0); MCV 79.2 fL (80.0-100.0); MONOCYTES 8.6 % (1.0-8.0); PLATELET COUNT 210 thou/uL (150-400); POLYS 83.7 % (36.0-66.0); RBC 2.77 mil/uL (4.20-5.00); RDW 17.2 % (10.5-14.5); WBC 6.6 thou/uL (4.0-11.0)
[2019-05-01 05:49] LABS: ALBUMIN 2.9 g/dL (3.4-5.0); CREATININE 2.5 mg/dL (0.6-1.0); MAGNESIUM 2.2 mg/dL (1.8-2.4); POTASSIUM 3.5 mmol/L (3.5-5.1); TOTAL BILIRUBIN 0.4 mg/dL (<0.1-1.0)
[2019-05-01 07:43] VITALS: BP 144/69
--- NOTE | 2019-05-01 10:10 | HC ---
[facility] [place] [address] CONSULTATION Name: HARLEEN ALVARES Room #: 216-P [facility] IN M.R.#: [id number] Admission: 04/30/19 ������������������ Attend Phys: Edwin Cornelius MD Discharge: ������������������ Date of : 36 Report #: [id number] THIS REPORT FOR: //name// CC: Edwin Church NEUROLOGY CONSULTATION HISTORY OF PRESENT ILLNESS: The patient is an 84-year-old female who was brought from home because she was having difficulty getting around. Apparently, the patient fell yesterday and was unable to stand up on her own. Reading the notes, it states the patient was driven to her daughter's house and was unable to walk up the stairs to her daughter's home. When she entered the home, she laid on the kitchen floor and stated she was unable to stand. The patient was able to stand without assistance later that day. When the patient was driven home, she refused to get out of the car and rested on her knees. Typically, the patient ambulates with a walker. The patient tells me that she sits quite a bit during the day. She seemed tearful during the interview. PAST MEDICAL HISTORY: Hypertension, atrial fibrillation, uterine cancer, migraine headache, congestive heart failure, chronic kidney disease and stroke. PAST SURGICAL HISTORY: Hysterectomy. MEDICATIONS AT HOME: Atorvastatin 20 mg daily, aspirin 81 mg daily, ferrous sulfate 325 mg daily, B12 at 500 mcg daily, vitamin D 1000 units daily, Flomax 0.4 mg daily, mirtazapine 30 mg at bedtime, amiodarone 400 mg daily, MiraLax 17 grams daily and amlodipine 10 mg daily. ALLERGIES: MEPERIDINE, IODINE, MORPHINE AND CODEINE. VITAL SIGNS: Temperature is 36.6, pulse rate 81, respiratory rate 16, blood pressure 143/67 and oxygen saturation 100% on room air. LABORATORY DATA: Hematology: White cell count 15.2, hemoglobin 9.3, hematocrit 26.6 and MCV 79.3. Urinalysis, 1+ protein. Chemistry: Sodium 140, potassium 2.8, chloride 102, carbon dioxide 29, BUN 33, creatinine 3.2, glucose 107, magnesium 2.7 and calcium 9.9. B12 of 4784. Procalcitonin 0.019. TSH 0.046. IMAGING DATA: CT scan of the head demonstrates no acute intracranial abnormality, chronic infarct in the left caudate nucleus, extending into the left subinsular region. NEUROLOGICAL EXAMINATION: Cranial nerves 2-12 are grossly intact. Motor exam demonstrates symmetrical strength in all 4 extremities, with tone and bulk normal. She has decreased range of motion of the left shoulder. Reflexes are trace throughout. The right plantar response is mute. The left plantar [address] [address] CONSULTATION Name: HARLEEN ALVARES Room #: 216-P [facility] IN M.R.#: [id number] Admission: 04/30/19 ������������������ Attend Phys: Edwin Cornelius MD Discharge: ������������������ Date of : 36 Report #: [id number] response flexor. Coordination reveals intact psflux-rh-krks. Gait was not tested. IMPRESSION: The patient's weakness is most likely multifactorial. The first thing that stands out is the patient's hypokalemia. She has a potassium of 2.8. She also has elevated BUN and creatinine and reviewing her BUN and creatinine from previous lab work. She had labs similar to this, and in fact, has had even higher BUN and creatinine with her admission in January. However, this is one of the higher creatinine levels she has had. At this point, I also suspect there is some deconditioning and I am going to order occupational and physical therapy for her. I will order an MRI of the head, but this can be done on Thursday. I thank you for your kind referral of this patient. We will continue to follow her with you. ��������������������������������������������� <ELECTRONICALLY SIGNED> ���������������������������������������� By: Radha Green DO ��������������������������������������������� 05/01/19 [id number] Radha Green DO /nt
[2019-05-01 11:45] VITALS: BP 147/61
[2019-05-01 16:40] VITALS: BP 136/71
[2019-05-01 19:51] VITALS: BP 147/77
[2019-05-01 23:58] VITALS: BP 147/76
--- NOTE | 2019-05-02 03:40 | NUR ---
ASSESSMENT CHARTED. VSS. PT DENIES SOA, PAIN, N/V, DIZZINESS OR CONCERN. DENIES HEADACHE THIS SHIFT. FLUIDS PER EMAR. PT SLEEPING WELL. REFUSES Q2 TURNS AT TIMES. PT ALERT AND ORIENTED BUT TAKES A MINUTE TO RESPOND AND FORGETFUL. WILL CONTINUE TO MONITOR AND WITH POC
[2019-05-02 05:07] VITALS: BP 170/74
[2019-05-02 08:20] VITALS: BP 155/72
[2019-05-02 11:38] LABS: HEMATOCRIT 23.7 % (37.0-47.0); HEMOGLOBIN 8.2 gm/dL (12.0-15.0); MCH 27.5 pg (26.0-34.0); MCHC 34.6 g/dL (28.0-37.0); MCV 79.6 fL (80.0-100.0); RBC 2.97 mil/uL (4.20-5.00); RDW 17.3 % (10.5-14.5); WBC 5.8 thou/uL (4.0-11.0)
[2019-05-02 11:44] LABS: CALCIUM 9.6 mg/dL (8.5-10.1); CREATININE 1.9 mg/dL (0.6-1.0); POTASSIUM 3.7 mmol/L (3.5-5.1)
[2019-05-02 12:24] VITALS: BP 158/89
[2019-05-02 13:03] LABS: % SATURATION 12 % (20-39); IRON 22 ug/dL (50-170); TIBC 181 ug/dL (250-450)
--- NOTE | 2019-05-02 14:59 | NUR ---
WOUND CONSULT; A RIGHT KNEE WOUND IDENTIFIED WITH YELLOW TINGED FIBRIN IN 80% OF THE WOUND BED. NO OTHER S/S OF INFECTION. BILATERAL TENDER,REDDENED ARM PITS. RECOMMENDATION; THERAHONEY TO RIGHT KNEE ,COVERED WITH A BOARDERED FOAM. M/W/F.PRN. INTERDRY TO BILATERAL ARM PITS. DESCUSSED WITH STAFF
--- NOTE | 2019-05-02 15:55 | NUR ---
VSS REMAINS NSR, LUNGS DIMINISHED AND CLEAR, O2 SAT RA IS 100%. PT REMAINS DROWSY, AND ORIENTED TO PERSON , PLACE AND SITUATION. PT IS APHASIC SO USUALLY SHE RESPONDS TO VERBAL QUESTIONS SLOWLY. PT APPETITE REMAINNS POOR, ADVANCED FROM PUREED TO MECHANICAL ALTERED CHOPPED, BUT TAKING IN MINIMAL EACH MEAL. PT UP TO CHAIR WITH MODERATE ASSIST TO CHAIR, TOOK STEPS TO CHAIR WITH ASSIST, PT WEAK ON FEET. DEE CONTINUE TO MONITER AND CARE FOR PT PER PLAN OF CARE
[2019-05-02 16:40] VITALS: BP 128/60
[2019-05-02 20:10] VITALS: BP 150/70
--- NOTE | 2019-05-03 03:17 | NUR ---
ASSESSMENT CHARTED. VSS. DAUGHTER AT BEDSIDE THROGHOUT NIGHT. PT DENIES CONCERN. HELPS WITH Q2 TURNS. INCONTINENT OF URINE, NO BM THIS SHIFT. FLUIDS PER EMAR. RIGHT LEG DRESSING CDI SEE WOUND CARE NOTES. WILL CONTINUE TO MONITOR AND WITH POC.
[2019-05-03 04:34] VITALS: BP 141/69
[2019-05-03 06:11] LABS: HEMATOCRIT 21.2 % (37.0-47.0); HEMOGLOBIN 7.3 gm/dL (12.0-15.0); MCH 27.2 pg (26.0-34.0); MCHC 34.3 g/dL (28.0-37.0); MCV 79.3 fL (80.0-100.0); RBC 2.67 mil/uL (4.20-5.00); RDW 17.2 % (10.5-14.5); WBC 4.6 thou/uL (4.0-11.0)
[2019-05-03 06:22] LABS: CALCIUM 9.1 mg/dL (8.5-10.1); CREATININE 1.7 mg/dL (0.6-1.0); MAGNESIUM 1.5 mg/dL (1.8-2.4); POTASSIUM 4.1 mmol/L (3.5-5.1)
[2019-05-03 08:00] VITALS: BP 146/71
--- NOTE | 2019-05-03 10:08 | NUR ---
met with patient who has past CVA. Patient resides at home and dtr has been staying with her. At times dtr takes patient to her home. Dtr reports patient does not have a wc at home. She uses walker at home. Has walkin shower with grab bar. She has BSC. Patient has been able to use walker and transfer herself in/out of car to her dtrs home. Dtr reports she gave patient and enema and she had multiple bowels that she reports affested her electrolyte imbalance. She reports she could not get out of car at her home which is unusual and fell to her knees in front of dtrs home. Patient with prev stay at 5N dc home with [facility]. Dtr is hopeful for 5N she does not her mother in skilled facility. She reports [facility] recently signed off services. 5N in process of eval. casemgt following.
[2019-05-03 11:27] VITALS: BP 167/81
--- NOTE | 2019-05-03 15:09 | NUR ---
VSS REMAINS NSR. PT DROWSY TO ALERT MOST OF DAY, ORIENTED TO NAME, PLACE AND SITUATION. REMAINS SLOW TO VERBALIZE WITH HER APHASIA. PT UP IN CHAIR WITH MOD ASSIST OF 1. UP IN [place] WITH PT AND WALKER, TOLERATED WELL. APPETTIE REMAINS POOR ON CHOPPED MECHANICAL DIET. NO COUGHING OBSERVED WITH EATING, FEEDS SELF. WILL CONTINUE TO MONITER AND CARE FOR PT PER PLAN OF CARE
[2019-05-03 15:41] VITALS: BP 177/92
[2019-05-03 19:25] VITALS: BP 169/76
--- NOTE | 2019-05-04 03:30 | NUR ---
ASSESSMENT CHARTED. VSS. DAUGHTER AT BEDSIDE. PT C/O GEN PAIN PRN TYLENOL PER EMAR. Q2 TURNS PT FREQUENTLY REPOSITIONED. INCONTINENT OF URINE FREQUENT CHANGES AND BARRIER CREAM, NO BM THIS SHIFT AWAITING STOOL SAMPLE. FLUIDS PER EMAR, PT D/C IV NEW INSERT RFA 22 G. PT ATE NO SNACKS THIS SHIFT. WILL CONTINUE TO MONITOR AND WITH POC.
[2019-05-04 04:27] LABS: HEMATOCRIT 22.1 % (37.0-47.0); HEMOGLOBIN 7.7 gm/dL (12.0-15.0); MCH 27.6 pg (26.0-34.0); MCV 78.8 fL (80.0-100.0); RBC 2.8 mil/uL (4.20-5.00); RDW 17.3 % (10.5-14.5); WBC 3.9 thou/uL (4.0-11.0)
[2019-05-04 04:28] LABS: CALCIUM 9.7 mg/dL (8.5-10.1); CREATININE 1.6 mg/dL (0.6-1.0); MAGNESIUM 1.9 mg/dL (1.8-2.4); POTASSIUM 3.9 mmol/L (3.5-5.1)
[2019-05-04 04:34] LABS: ALBUMIN 2.8 g/dL (3.4-5.0); DIRECT BILIRUBIN 0.2 mg/dL (<0.1-0.3); TOTAL BILIRUBIN 0.5 mg/dL (<0.1-1.0); TOTAL PROTEIN 5.7 g/dL (6.4-8.2)
[2019-05-04 05:07] VITALS: BP 153/66
[2019-05-04 08:18] VITALS: BP 143/69
[2019-05-04 12:19] VITALS: BP 175/101
--- NOTE | 2019-05-04 13:53 | NUR ---
patient with increase difficulty swallowing today, possibe extension of prev cva. 5N following. family strongly prefers 5N at dc than skilled.
--- NOTE | 2019-05-04 14:48 | NUR ---
THE PATIENT'S SWALLOW WAS REASSESSED THIS DATE DUE TO DECREASED RESPONSIVENESS AND DIFFICULTY SWALLOWING REPORTED BY NURSING. THE PATIENT'S PHARYNGEAL SWALLOW THIS AFTERNOON APPEARS FUNCTIONAL BUT SHE IS HAVING GREATER DIFFICULTY WITH ORAL BOLUS MANAGMENT. THEREFORE, DIET WILL BE DOWNGRADED TO PUREED TEXTURES. KEEP ON THIN LIQUIDS. SUPERVISION WITH MEALS.
--- NOTE | 2019-05-04 15:37 | NUR ---
PATIENT ASSESSMENT CHARTED, VSS, DIFFICULT TO AROUSE PATIENT, REFUSED TO MORNING MEDS, DIFFICULTY SWALLOWING, SWALLOW STUDY ORDERED. PATIENT DIET CHANGED TO PUREE. REPORT CALLED, PATIENT TRANSFERRING TO [facility].
[2019-05-04 17:21] VITALS: BP 159/82
[2019-05-04 19:27] VITALS: BP 141/87
--- NOTE | 2019-05-04 19:40 | NUR ---
PATIENT ARRIVED ON UNIT AT 1615 ACCOMPANIED BY DAUGHTERS. PT ALERT XS 1-2. V.S TAKEN BY SECTION SUPERVISOR, FLUIDS STARTED HAS RIGHT FA. ROOM AIR LUNGS CTA / DIM.
[2019-05-05 01:15] VITALS: BP 162/90
--- NOTE | 2019-05-05 05:01 | NUR ---
ASSUMED TP CARE 1899. PT ALERT AND ORIENTED X3, FORGETFUL. REASSESSMENT COMPLETE. VSS. IV DRESSING C/D/I. DAUGHTER AT BEDSIDE. DENIES PAIN. DENIES N/V. CALL LIGHT AND PERSONAL BELONINGS WITHIN REACH. WILL CONTINUE POC UNTIL EOS.
[2019-05-05 08:43] VITALS: BP 162/90
--- NOTE | 2019-05-05 16:36 | NUR ---
PLAN IS TO TRANSFER TO 5N LATER TODAY TO ROOM 506. NOTIFIED PT'S DTR SUN OF PT'S TRANSFER & NEW ROOM NUMBER.
--- NOTE | 2019-05-05 18:16 | NUR ---
ASSUMED CARE OF PT AT APPROX 0700. PT IS ALERT AND ORIENTED X3-4 CAN BE FORGETFUL AT TIMES. DENIES PAIN AND SOA. EVEN NON LABORED BREATHING. ASSESSMENT CHARTED. PT IN CHAIR FOR MAJORITY OF DAY AND WORKED VERY WELL WITH PT. PT TO BE DC'D AFTER SHIFT CHANGE TO 5N REHAB UNIT. PT HAS BEEN UPDATED ON POC AND DENIES AND NEW QUESTIONS OR CONCERNS. REPORT CALLED TO 5N AWAITING CALL BACK. DC COMPLETED. WILL CONTINUE TO MONITOR.
--- NOTE | 2019-05-13 18:28 | HC ---
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 The patient nevertheless has been ambulatory utilizing a walker. She was living with her daughter when she had the onset of mental status changes and increasing weakness, fall and unable to get up. Noted to have multifactorial weakness. She had significant hypokalemia with elevated BUN and creatinine was noted to have confusion, disorientation with diagnosis of an acute encephalopathy, probable toxic metabolic. She also has leukocytosis of unclear etiology. She has had a significant decline with her functional abilities. We are seeing her in rehabilitation medicine consultation. PAST MEDICAL HISTORY: Includes the prior CVAs including the left middle cerebral artery cerebrovascular accident with right hemiparesis as well as the prior right CVA with left hemiparesis. She has a history of hypertension, atrial fibrillation, urinary retention in the past, history of migraine headaches, history of hyperlipidemia, and chronic diastolic heart failure. MEDICATIONS: Please see the full medication listing. HABITS: No history of alcohol or tobacco abuse. SOCIAL HISTORY: She lives at home with her daughter. No steps. The patient's sister sometimes stays with them as well. Used a walker to get around. Her daughter is retired and is assisting her. REVIEW OF SYSTEMS: Did not offer any current complaints of chest pain, shortness of breath or abdominal discomfort. PHYSICAL EXAMINATION: GENERAL: An 84-year-old rather slender -[place] Citizen female in no obvious distress. She is sleepy, but will easily arouse. VITAL SIGNS: Last recorded temperature 97.6, pulse 85, respirations 16, blood pressure 155/72. NEUROLOGIC: Facies are symmetric. She does have the chronic tightening or abnormality of her left lower lip. Facies otherwise appeared reasonably symmetric. She can follow basic 1 step commands. Functional range of motion of both upper extremities. Strength is probably a grade 4- to 3+/5. No obvious [facility] [address] [place] [address] CONSULTATION Name: HARLEEN ALVARES Room #: 424-P [facility] IN [facility].#: [id number] Admission: 04/30/19 ������������������ Attend Phys: Edwin Cornelius MD Discharge: 05/05/19 ������������������ Date of : 37 Report #: [id number] Rosas's. Lower extremities, no focal calf swelling, functional range of motion with strength grade 4/5. She is min assist with sitting and supine to sit is max assist. ASSESSMENT: An 84-year-old -[place] Citizen female with the following problem list: 1. Acute encephalopathy, probable toxic metabolic. 2. Significant electrolyte abnormalities. 3. Prior history of bilateral cerebrovascular accidents. 4. Leukocytosis of unclear significance. 5. Generalized weakness. 6. Acute renal insufficiency superimposed on chronic kidney disease. 7. Hypertension. 8. Chronic diastolic heart failure. 9. Hyperlipidemia. PLAN: Therapy evaluations are underway. We are considering her for an acute in-hospital inpatient rehabilitation stay as she further medically stabilizes. Discussion with the patient's daughter and sister. At this point, we will be glad to follow along with you. ��������������������������������������������� <ELECTRONICALLY SIGNED> ���������������������������������������� By: Drake Contreras MD ��������������������������������������������� 05/13/19 1828 1216 1807 Drake Contreras MD /nt
== END 2019-05-05 20:00 | DRG 682 ==
LOC: ER 00:49 → 2N 02:04 → EROBS 02:04 → 2N 02:04 → 4E 05-04 16:17
PROVIDERS: Emergency Medicine; Hospitalist; Internal Medicine; Nurse Practitioner; ADMIT Internal Medicine
DX: N17.0 Acute kidney failure with tubular necrosis (principal); G92 Toxic encephalopathy; I50.32 Chronic diastolic (congestive) heart failure; R47.01 Aphasia; I69.354 Hemiplegia and hemiparesis following cerebral infarction affecting left non-dominant side; I13.0 Hypertensive heart and chronic kidney disease with heart failure and stage 1 through stage 4 chronic kidney disease, or unspecified chronic kidney disease; G43.909 Migraine, unspecified, not intractable, without status migrainosus; E78.5 Hyperlipidemia, unspecified; E87.6 Hypokalemia; E83.42 Hypomagnesemia; D72.829 Elevated white blood cell count, unspecified; I48.2 Chronic atrial fibrillation; N18.3 Chronic kidney disease, stage 3 (moderate); I27.20 Pulmonary hypertension, unspecified; E03.9 Hypothyroidism, unspecified; K59.00 Constipation, unspecified; R13.10 Dysphagia, unspecified; D64.9 Anemia, unspecified; I08.3 Combined rheumatic disorders of mitral, aortic and tricuspid valves; Z90.710 Acquired absence of both cervix and uterus; Z98.49 Cataract extraction status, unspecified eye; Z88.8 Allergy status to other drugs, medicaments and biological substances; Z88.6 Allergy status to analgesic agent; Z91.041 Radiographic dye allergy status; Z85.42 Personal history of malignant neoplasm of other parts of uterus; Z79.82 Long term (current) use of aspirin; Z79.899 Other long term (current) drug therapy
CPT/HCPCS: 10081; 10783

== ENCOUNTER 2019-05-03 13:37 | Inpatient (IN) | payer OTHER ==
[~2019-05-03] VITALS: Ht 162.6 cm; Wt 59.0 kg
--- NOTE | ~2019-05-03 | HC ---
[facility] [place] [address] [address] [place] [address] CONSULTATION Name: HARLEEN ALVARES Room #: 506-1 [facility] IN M.R.#: [id number] Admission: 05/05/19 Attend Phys: Drake Contreras MD Discharge: 05/27/19 Date of : 36 Report #: [id number] THIS REPORT FOR: //name// CC: Drake Church REQUESTING PHYSICIAN: Dr. Contreras with Podiatry. CHIEF COMPLAINT: The patient presents with CVA. HISTORY OF PRESENT ILLNESS: The patient is an 84-year-old female who presented initially to [facility] on 04/30/2019 with right hemiparesis, was found to have a cerebrovascular accident at that time. Subsequently, had been discharged to inpatient rehabilitation for rehabilitation. Unfortunately, she had not had significant improvement and has had several complications developed including acute renal failure and also including worsening anemia. Today I have been talking with both the patient and the patient's ex- as well as daughter. The patient reports that she is currently comfortable. She was eating some amount of solid foods today for me, but had refused all medications. The patient is clear that she does not want any kind of CPR or mechanical ventilation at this time. Additionally, she wants to discuss steps and measures to get home. She is planning on leaving the facility tomorrow. PAST MEDICAL HISTORY: Significant for gastroesophageal reflux disease, hypokalemia, dysphagia, anemia, obstructive uropathy, atrial fibrillation, hypertension, hyperlipidemia, chronic diastolic congestive heart failure. SOCIAL HISTORY: No tobacco, alcohol or illicit drug use. 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 She lives at home with her daughter. Again ex- is present for my visit. At this current point in time, she wishes to be DNR, currently listed as full code. PAST SURGICAL HISTORY: Hysterectomy and cataract surgery. FAMILY HISTORY: Noncontributory given current present state. ALLERGIES: DEMEROL, IODINE, MORPHINE, CODEINE, LATEX. MEDICATIONS: She is currently taking iron twice daily, MiraLax twice daily, Compazine as needed, Ritalin, Protonix, Xarelto, Zoloft, Lipitor, aspirin, amiodarone, Flomax, Remeron, although again she has refused all today. REVIEW OF SYSTEMS: Again, she denies any significant fevers or chills. No recent infectious illness that she is aware of. The patient has had some weight loss. Again, has had anorexia. PHYSICAL EXAMINATION: [facility] [address] [place] [address] CONSULTATION Name: HARLEEN ALVARES Room #: 506-1 [facility] IN M.R.#: [id number] Admission: 05/05/19 Attend Phys: Drake Contreras MD Discharge: 05/27/19 Date of : 36 Report #: [id number] HEENT: Denies any current visual changes. CARDIOVASCULAR: Denies chest pain. She denies palpitations. She denies tachycardia. RESPIRATORY: Denies shortness of breath, cough, or wheezing. ABDOMEN: Denies nausea, vomiting, constipation or diarrhea. Again, she has diminished appetite overall. EXTREMITIES: She has especially right-sided weakness; however, she is able to assist to feed herself currently. PHYSICAL EXAMINATION: VITAL SIGNS: Temperature 36.8, pulse 79, respirations 18, blood pressure 128/61, 100% on room air. GENERAL: The patient is alert. She is at least oriented x 2. She is in no acute distress. HEENT: Extraocular muscles appear to be intact. She is normocephalic and atraumatic. No conjunctival injection. No scleral icterus. CARDIOVASCULAR: Regular rate and rhythm currently. CARDIORESPIRATORY: Lungs are clear to auscultation bilaterally. No wheezes, rales or rhonchi. ABDOMEN: Soft, nontender to palpation x4. LABORATORY DATA: Most recent hemoglobin 6.9. Creatinine 2.3. ASSESSMENT AND PLAN: 1. Cerebrovascular disease. I have discussed extensively with the patient wished to make her advance directive DNR since approximately 45 minutes to 50 minutes on discussion of advanced care planning with the patient's ex- with daughter, with staff including social work. The patient is to pursue home health currently, although I have discussed significantly that if she were to have any decline she is not wanting to proceed to the hospital again and in that case, then it would be prudent to have hospice contact information. Social work is to provide that for the patient and for daughter to contact hospice if she were to have further decline. Additionally, I have discussed whether or not she would like to have a transfusion. The patient initially was considering this. However, she denies that she desires to have any kind of blood transfusion in the future, especially if it involves return to the hospital and she now denies that she was to have blood transfusion within the hospital. She does have capacity for the decisions and understands that they may result in the loss of her life or early . She again wishes to pursue home health initially, which is being set up, but may quickly transitioned to hospice, which I have discussed with them as her condition is likely to worsen significantly without adequate p.o. intake. 2. Anorexia. Again this is an overlying factor that has caused her acute renal failure, most likely and this is quite possibly reason for loss of life. 3. Acute renal failure. At this point in time, she is not wishing to pursue any kind of significant intervention. [facility] [address] [place] [address] CONSULTATION Name: HARLEEN ALVARES Room #: 506-1 [facility] IN M.R.#: [id number] Admission: 05/05/19 Attend Phys: Drake Contreras MD Discharge: 05/27/19 Date of : 36 Report #: [id number] 4. Anemia. Again, influential at her overall condition at this present time. She does not wish to have blood transfusions. Again, I have discussed this with the entire family and with shoe parts caser as well as staff. I believe that she is likely to transition to home either tomorrow or the next day with home health initially, but again, we will give her contact information to switch to hospice if that were to proceed towards that care in the future. By: [phone] [place] DO /nt
[~2019-05-03 13:37] MED LIST changes: +XANAX 0.25 MG0.25 MG PO; +ZOLOFT25 MG PO
[2019-05-05 20:22] VITALS: BP 161/88
--- NOTE | 2019-05-06 00:06 | NUR ---
PT ADMITTED TO 5N FROM 4 EAST THIS EVENING. PT VERY WEAK AND WANTING TO GET STRONGER. FALL PRECAUTIONS IN PLACE. DAUGHTER AT BEDSIDE. DAUGHTER VOICED CONCERN ABOUT THE ROOM BEING DIRTY AND THIS RN WAS ASKED TO CLEAN IT WITH OUR GERMACIDE WIPES. CLEANED SURFACES 2 TIMES PER DAUGHTER'S REQUEST. THEN ENDED UP CALLING HOUSEKEEPING PER HER REQUEST. ALSO, DAUGHTER STATED THAT SHE DID NOT WANT THE PEST CONTROL SPECIALIST TO COME PRAY WITH THEM BECAUSE HE WAS A SMOKER AND THAT BOTHERED HER. SHE SAID THAT HER MOM WAS NOT EATING BECAUSE THE FOOD HERE IS BAD AND THAT IT WAS OBVIOUS THAT THE CHICKEN WAS NOT FRESH EVERY TIME SHE RECEIVED IT. PROVIDED MUCH EMOTIONAL SUPPORT. COMPLETED ADMIT HX AND ASSESSMENT ORDERED. WILL CONTINUE TO MONITOR FREQUENTLY. SCDS ON. VSS. MEDS GIVEN. PRN PAIN AND ANXIETY MEDICATION HELPFUL. PT SLEEPING WELL AT THIS TIME. WILL CONTINUE TO MONITOR.
[2019-05-06 05:43] LABS: HEMATOCRIT 22.2 % (37.0-47.0); HEMOGLOBIN 7.7 gm/dL (12.0-15.0); MCH 27.6 pg (26.0-34.0); MCHC 34.8 g/dL (28.0-37.0); MCV 79.4 fL (80.0-100.0); RBC 2.79 mil/uL (4.20-5.00); RDW 16.9 % (10.5-14.5); WBC 3.9 thou/uL (4.0-11.0)
[2019-05-06 05:57] LABS: CALCIUM 9.7 mg/dL (8.5-10.1); POTASSIUM 3.4 mmol/L (3.5-5.1)
[2019-05-06 08:00] VITALS: BP 145/82
--- NOTE | 2019-05-06 10:30 | NUR ---
PATIENT'S DAUGHTER HAD REFUSED TO ALLOW THERAPISTS TO WORK WITH PATIENT THIS AM, STATING THAT SHE HAD A LATE NIGHT THE NIGHT BEFORE, AND THAT SHE NEEDED TO SLEEP. THIS WAS COMMUNICATED TO THE NURSE TRAY PACKER AFTER THE RN HAD TO ADMINISTER MEDICATIONS VIA FLASHLIGHT DUE TO THE DAUGHTER'S INTOLERANCE OF HER TURNING ON THE LIGHT. PATIENT WAS ALLOWED TO REST IN THE BED UNTIL 10AM, THEN NURSE TRAY PACKER ENTERED ROOM, TURNED ON ALL OF THE LIGHTS, AND WITH THE ASSIST OF THE BUTTON BREAKER, AWAKENED THE PATIENT AND ASSISTED HER TO THE CHAIR SO SHE COULD WORK WITH THE OCCUPATIONAL THERAPIST. DURING THIS PROCESS, NURSE TRAY PACKER ALSO PROVIDED EDUCATION TO SUN, THE PATIENT'S DAUGHTER, REGARDING OUR GOALS FOR INCREASED STRENGTH, GOOD NUTRITION AND HYDRATION, AND EVENTUAL RETURN TO HOME WITH IMPROVED HEALTH AND FUNCTIONAL INDEPENDENCE. DURING EDUCAITON, SUN PULLED A BLANKET OVER HER HEAD. CONTINUED EDUCATION PROVIDED DURING TRANSFER OUT OF BED WITH THE PATIENT, WHO FOLLOWED ALL DIRECTIONS AND NODDED IN AGREEMENT TO THE PLAN AND GOALS FOR THE DAY AND FOR THE REMAINDER OF HER STAY HERE ON REHAB. OCCUPATIONAL THERAPIST ENTERED AND ASSUMED CARE AT THIS TIME.
--- NOTE | 2019-05-06 11:20 | NUR ---
PATIENT WAS SLEEPING THIS AM WHEN THIS NURSE CAME ON SHIFT PATIENT'S DAUGHTER DID NOT WANT HER WOKE UP STATES NO ONE CAN REST IN THIS PLACE. EXPLAINED WAS REHAB UNIT ALSO EXPLAINED THAT IT WAS TIME FOR HER 09:00 MEDS SHE SAID OKAY AFTER EDUCATION. THIS NURSE GAVE MEDS USING FLASH LIGHT. PUT IN APPLESAUCE AND PATIENT TOOK 1 AT A TIME W/O DIFF.PATIENT AND DAUGHTER WENT BACK TO SLEEP. THERAPY HAD BEEN IN XS 2 TIMES TO DO THERAPY BUT PATIENT DID NOT WANT TO GET UP.
--- NOTE | 2019-05-06 12:07 | NUR ---
PATIENT HAS GI CNSULT ORDER WITH DR JUAREZ CALLED HER OFFICE DR BEASLEY WORKING TODAY WILL CALL THIS NURSE. DR JUAREZ OFF TODAY.
--- NOTE | 2019-05-06 12:23 | NUR ---
DR BEASLEY RETURNED CALL AT THIS TIME. [facility] HAS BEEN SEEING PATIENT ON ACUTE SIDE WILL CONTINUE TO SEE PATIENT.
--- NOTE | 2019-05-06 12:46 | NUR ---
chart review, pt been on acute rehab in past. knocked on door pt working with speech there and ok for cm to visit. pt up in wheel chair. pt preferrs going by beltran phillips her boyfriend at bedside per alan. pt a & O X 3 with some forgetfulness, flat facial expression, little eye contacted and able to make her needs know. soft spoken voice. verball communication. beltran asked her if she wanted some ice cream and he wants to get her better so they can go dancing again. noted pt smile when he stated the dancing. cm got pt vanilla ice cream cup that was ok by speech working with her, beltran help feed her the ice cream. no complaints, no pain and or concerns voiced during visit. noted in chart, pt lives alone with daughter niraj stays with her, has walker, grab bars in bathroom, has steps, stair in home, and had chcs in past. per chart. will cont following as needed for dc needs.
--- NOTE | 2019-05-06 14:10 | NUR ---
CONSULT FOR DR CORTES CALLED OFFICE AT 13:49 AWAITING CALL BACK
--- NOTE | 2019-05-06 14:11 | NUR ---
PATIENT IN GYM FOR THERAPY IS CLIMBING STAIRS AND EXERCISING. PT SMILING AND IS HAPPY AT THE PRESENT.
--- NOTE | 2019-05-06 17:10 | NUR ---
PT UP IN BEDSIDE CHAIR DINNER SERVED PT HAS NO APPETITE. DAUGHTER AND EX AT BEDSIDE.
--- NOTE | 2019-05-06 18:02 | NUR ---
PICTURE AND DOCUMENTATION TAKEN OF PATIENTS RIGHT KNEE. PT SITTING UP IN BEDSIDE CHAIR NO PAIN OR RESP DISTRESS AT THE PRESENT. DAUGHTER AT BEDSIDE
[2019-05-06 20:00] VITALS: BP 143/74
--- NOTE | 2019-05-06 22:58 | NUR ---
ASSUMED CARE AT 1900, ASSISTED PT TO TOILET AND CHANGE INTO NIGHT GOWN WHILE DOING SHIFT REPORT WITH DAY RN. ASSESSMENT COMPLETED. PT UP WITH MINIMAL ASSIST, GAIT BELT, AND WALKER; DOES NOT LIFT ARMS WELL, KEEPING ELBOWS TIGHT TO BODY AND ONLY MOVING THE FOREARMS; NOTED TO SLIGHTLY DRIFT LEFT WHEN WALKING AND STANDING, LEFT FACIAL DROOP. DAUGHTER STAYING IN ROOM WITH PATIENT. WHILE TOILETING PATIENT AND ASSISTING TO CHANGE CLOTHES, PT DENIED PAIN, NAUSEA OR SOB. SPOKE VERY LITTLE. PT BRUSHED HER TEETH. AFTER COMING BACK ABOUT AN HOUR LATER TO GIVEN HS MEDS, PT SOMEWHAT JUMPY; DAUGHTER STATED "DON'T TOUCH THAT ARM, SHE'S GOT A BIG BRUISE THERE." DAUGHTER KEPT STATING "I WANT TO KNOW WHO DID THAT; SHE'S GOING TO POINT THEM OUT TO ME TOMORROW." OBSERVATION OF THE RIGHT FOREARM SHOWED A LARGE BRUISE JUST BELOW THE LATERAL ELBOW AND ABOVE THE IV SITE; AREA HAD A LARGE, RAISED KNOT, DARK PURPLE IN COLOR, AND CLEARLY EXTREMELY TENDER TO THE TOUCH. DURING INITIAL ASSESSMENT EARLIER IN THE EVENING, A SLIGHT BRUISE WAS NOTED, BUT WITHOUT THE TENDERNESS AND SWELLING. SPOKE WITH OVERNIGHT NURSE PRACTIONER. OBTAINED ORDER TO DO A ROUTINE TWO VIEW XRAY OF RIGHT FOREARM IN THE MORNING. RECEIVED ORDER THAT IT WAS OKAY TO REMOVE PT'S IV SINCE SHE IS NOT RECEIVING IV MEDICATIONS. PT WAS ALSO NOTED TO HAVE A MORNING POTASSIUM OF 3.4; OBTAINED ORDER FOR AN AM DOSE OF POTASSIUM, ORAL POWDER TO MIX WITH FOOD OR DRINK, WELL REDRAW OF A BMP FOUR HOURS AFTER POTASSIUM IS GIVEN. MORELIA ASKED WHAT MEDS PT WAS RECEIVING AT BEDTIME. REVIEWED THESE WITH HER, SHE ASKED ABOUT SOMETHING TO HELP HER SLEEP. EXPLAINED THE MIRTAZIPINE HELPS WITH SLEEP. DAUGHTER ASKED IF SHE WOULD GET THE PILL SHE HAD LAST NIGHT, REFERRING TO [facility]; EXPLAINED THE DOCTOR HAD PLACED THIS ON HOLD UNTIL SEEN BY DR. CORTES TO ENSURE PT WAS NOT BEING OVER-MEDICATED. ALSO OFFERED ANOTHER DOSE OF TYLENOL FOR PAIN WHEN AVAILABLE AFTER 2200, JUST ASKED FOR PT TO CALL. GAVE ALL HS MEDS ONE AT A TIME IN APPLESAUCE, WITH HS MIRALAX MIXED IN ORANGE JUICE; PT DRANK ABOUT HALF THE ORANGE JUICE MIX. SWALLOWED PILLS MODERATELY WELL, REQUIRED SECOND SWALLOWS WITH THE CAPSULS. NO OTHER CONCERNS, WILL CONTINUE MONITOR.
[2019-05-07 08:00] VITALS: BP 114/61
--- NOTE | 2019-05-07 10:32 | NUR ---
ASSUMED CARE AT 0700. PATIENT IS ALERT AND ORIENTED X3. SMYTH'S, BUT DOES HAVE SOME LEFT SIDED WEAKNESS, AND LEANS TO THE LEFT. LUNGS ARE CLEAR AND DEMINISHED. PATIENT HAS SOME DIFFICULTY SWALLOWING PILLS. MEDS GIVEN IN APPLESAUCE. PATIENT HAS RIGHT AC OLD IV SITE WITH SMALL INFILTRATE SITE. FALL AND SAFETY PROTOCOLS IN PLACE. NO C/O PAIN AT THIS TIME. CONTINUES TO PROGESS TOWARDS D/C GOALS. WILL CONTINUE TO MONITER.
[2019-05-07 20:35] VITALS: BP 156/77
--- NOTE | 2019-05-08 | NUR ---
ASSUMED CARE OF PT AT 1915. PT IS A&OX3. IS ON ROOM AIR. DENIES PAIN & DISCOMFORT. IS STABLE. DAUGHTER AT BEDSIDE. PT IS UP WITH 1 ASSIST, GB, WALKER. HAS L & R SIDED WEAKNESS. FALL PRECAUTIONS & HOURLY ROUNDING CONTINUED THIS SHIFT. PT IS A Q2H TURN, BUT IS ABLE TO MOVE SELF IN BED. HAS ENLIVE ENSURE IN FRIDGE. LABS & VITALS REVIEWED. WILL CONTINUE TO MONITOR. PT DAUGHTER REQUESTED FOR PT TO BEGIN RETAKING ANUJ Pierre WILL PASS ON TO DAY SHIFT NURSE IN AM.
[2019-05-08 08:30] VITALS: BP 133/66
--- NOTE | 2019-05-08 10:36 | NUR ---
NURSING STAFF CALLED HS TO ASK TO COME SPEAK WITH THE FAMILY IN RM 506 REGARDING FAMNILY FOLLOWING STAFF AROUND THE UNIT, BEING DEMANDING OF NEEDS, AND CALLING STAFF NAMES. FAMILY MEMBER DENIES NAME CALLING AND FOLLOWING STAFF MEMBERS AROUND THE UNIT.THIS HS ASKED THAT THEY USE THE CALL LIGHT FOR FURTHER NEEDS ASKED IF THERE WAS ANY ISSUES OR NEEDS THAT NEEDED ADDRESSEED AT THIS. TIME, DAUGHTER STATES NO BUT SHE MAY HAVE A PROBLEM WITH THIS HS AND WILL TALK TO THE NIGHT HOUSE SUP ABOUT IT. INFORMED DAUGHTER THAT THE BEST WAY FOR US TO TRACK NEEDS AND TIMES STAFF COMES IN TO HELP IS WITH THE CALL SYSTEM. INFORMED NURSES OF DISCUSSION WITH FAMILY AND WILL ADDRESS ANY FURTHER THEY ARISE.
--- NOTE | 2019-05-08 15:15 | HC ---
[facility] [place] [address] CONSULTATION Name: HARLEEN ALVARES Room #: 506-1 ADM IN M.R.#: [id number] Admission: 05/05/19 Attend Phys: Drake Contreras MD Discharge: Date of : 36 Report #: [id number] THIS REPORT FOR: //name// CC: Drake Church DATE OF SERVICE: 05/07/2019 NEUROBEHAVIORAL STATUS EXAM ATTENDING PHYSICIAN: Drake Contreras M.D. CONSULTING PHYSICIAN: Jhonny Aguilera, PhD. CLINICAL PRESENTATION: The patient is an 84-year-old -Russian female admitted to the rehabilitation unit at [facility] for comprehensive inpatient rehabilitation program to improve functional mobility, activities of daily living and self-care and mental status secondary to deficits from a cerebrovascular accident. The patient's diagnoses included clinical CVA extension and acute dysphagia, multifactorial encephalopathy likely toxic- metabolic, hypertensive contributors, generalized weakness and debilitation, leukocytosis resolved, anemia, no obvious active gastrointestinal bleeding, chronic kidney disease stage 3, hypertension, history of migraine headaches, hyperlipidemia, chronic diastolic heart failure and prior history of multiple strokes. A complete description of her medical condition and history can be found in her medical record. Neuropsychological consultation was requested to provide assistance in the assessment of cognitive and emotional status and to provide recommendations and services. Prior to this most recent admission, she was living with the assistance of her daughter in her home. The patient has required assistance with basic and instrumental activities of daily living. She has one child. 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 Her daughter indicates that the patient was independent with activities of daily living until her initial stroke in 01/2019. She has a very supportive family. Her daughter is planning to have the patient move in with her in her home following discharge, and is not wanting her to go into nursing into long-term care, but rather plans on taking care of her in her own home. TECHNIQUES UTILIZED: Clinical interview, review of medical records, staff consultation and behavioral observation, mini mental status exam 2 standard version and clock drawing and family interview -- daughter. EXAMINATION FINDINGS: The patient was alert and cooperative with the [facility] [address] [place] [address] CONSULTATION Name: HARLEEN ALVARES Room #: 506-1 [facility] IN .R.#: [id number] Admission: 05/05/19 Attend Phys: Drake Contreras MD Discharge: Date of : 36 Report #: [id number] assessment. She was assessed while supine in her bed. The patient's speech is quite soft. She reports having difficulty with expressive speech, decreased appetite and problems with memory and sleep. She does not report anxiety or depression. However, her daughter felt like her mood might be depressed. She is described as having been frustrated with the extent of help that she requires given her prior level of independence. Her energy level has been very poor and she is more lethargic and fatigued. Performance on the MMSE 2 brief version was extremely low with a raw score of 4/16. She was 3/3 for initial registration, 0/5 for orientation to time and 1/[address]. She was 0/3 for immediate recall of 3 items after a brief time delay and distraction. Her performance was extremely low on the MMSE 2 standard version with a raw score of 10/30. She was 0/5 for serial sevens, 2/2 for naming, 1/1 for repetition and 3/3 for auditory comprehension. She was unable to follow a single written command. She could not write a sentence or copy a simple geometric design. The patient was unable to draw a clock or place the numbers or set the hands at designated time. The patient is presenting with severe deficits in neurocognitive functioning. Impairment with immediate recall, attention/concentration and intermittent confusion and disorientation is noted. DIAGNOSTIC IMPRESSION: Major neurocognitive disorder due to vascular disease, without behavior disorder -- extent to be determined, likely in the severe range. Unspecified depressive disorder. RECOMMENDATIONS: The patient may benefit from the use of an antidepressant to assist in the stimulation of appetite, e.g.,, Remeron. During my assessment, her lunch was in front of her and she had no desire for eating. Although, she is unlikely to have been able to coordinate actions necessary for eating without assistance. 24-hour supervision with that includes assistance in the management of medication, nutrition and finances is indicated. A followup neuropsych assessment may be of benefit to clarify cognitive deficits. However, current functioning is very poor. Specific one step instructions will be necessary for her to adequately follow of directions. [address] [address] CONSULTATION Name: HARLEEN ALVARES Room #: 506-1 ADM IN M.R.#: [id number] Admission: 05/05/19 Attend Phys: Drake Contreras MD Discharge: Date of : 36 Report #: [id number] Thank you very much for allowing me to provide the assessment on this patient. <ELECTRONICALLY SIGNED> By: Jhonny Aguilera, PhD 05/08/19 1515 [id number] Jhonny Aguilera, PhD /nt
[2019-05-08 19:55] VITALS: BP 134/75
--- NOTE | 2019-05-08 20:25 | NUR ---
ASSUMED CARE AT APPROX 0715. PATIENT A/O X3-4. FORGETFUL AT TIMES. VSS. DENIES PAIN. UP X1 ASSIST GB AND WALKER. CALLS APPROPRIATELY. AMBULATING TO TOILET. PATIENT'S DAUGHTER AT BEDSIDE. PATIENT DID HAVE INCONTINENT EPISODE OF BOWEL AND BLADDER THIS AM AT START OF SHIFT. STAYED CONTINENT FOR REMAINDER OF SHIFT. PATIENT'S DAUGHTER CAME OUT TO DESK LOOKING FOR THE FURNACE ROASTER, PATIENT'S DAUGHTER PROCEDED TO WALK TO BREAKROOM TO LOOK FOR THE FURNACE ROASTER, STOOD OUTSIDE BREAKROOM UNTIL THE FURNACE ROASTER CAME OUT AND DEMANDED HER MOTHER'S ROOM BE CLEANED IMMEDIATELY. DAUGHTER BECAME VERBALLY AGGRESSIVE TO STAFF. SAW MAKER CALLED, SPOKE WITH PATIENT'S DAUGHTER. SAW MAKER ASKED PATIENT AND HER DAUGHTER TO PLEASE USE THE CALL LIGHT SYSTEM TO ASK FOR ASSISTANCE. PATIENT'S DAUGHTER STATED, "WELL THEN, I WILL BE ON THAT CALL LIGHT ALL DAY." SAW MAKER AWARE. PATIENT'S DAUGHTER LEFT UNIT FOR PART OF DAY, RETURNED TO UNIT AT DINNER TIME. PATIENT HAD HER SON AT BEDSIDE, PATIENT USED CALL LIGHT APPROPRIATELY. PATIENT UP TO CHAIR FOR BREAKFAST AND LUNCH, REFUSED TO FOR DINNER, PATIENT'S BED ELEVATED TO CHAIR POSITION, PATIENT SUPPORTED WITH PILLOWS. PATIENT HAD FAMILY AT BEDSIDE. FALL PRECAUTIONS IN PLACE. RESTING IN BED AT SHIFT CHANGE
--- NOTE | 2019-05-08 22:55 | NUR ---
PT ASSESSMENT COMPLETED AND VSS. MEDS GIVEN ORDERED AND WELL TOLERATED IN APPLESAUSE. FAMILY AT BEDSIDE. ASST WITH REPOSITION USING PILLOWS FOR COMFORT. INC OF URINE. SLEEPING WELL. DENIES NEEDS. WILL CONTINUE MONITORING. DAUGHTER ASLEEP AT BEDSIDE.
[2019-05-09 07:50] VITALS: BP 132/65
--- NOTE | 2019-05-09 08:10 | NUR ---
PT WAS VERY LETHARGIC LAST NIGHT. SHE WAS BREATHING FINE AND VSS. BUT SHE APPEARED TO BE SEDATED. WHEN REPOSITIONING PT THE TRAVEL CLERK RADHA AND RN BLANQUITA FOUND A PINK PILL ON THE PATIENT'S CHEST JUST BELOW HER SHIRT. THE PILL HAD THE LETTERS DP ON IT. THE TRAVEL CLERK RADHA DID SEE SEVERAL PILL BOTTLES ALONG THE WINDOW AND ONE HAD PINK PILLS IN IT AND THE BOTTLE WAS LABELED ALLERGY MEDICATION. THE PILL WAS TAKEN TO PHARMACY FOR ID. PHARMACY THOUGHT THE PILL WAS BENADRYL BUT THEY WERE NOT SURE. INFORMED ZOEY JOSÉ AND CHIOMA MELO ABOUT THE PATIENTS SEDATION AND FINDING THE PILL. THEY DID NOT WANT THIS MENTIONED TO THE PATIENT OR PATIENTS DAUGHTER BY NURSING STAFF. CHIOMA MELO DOCUMENTED THE EVENT AND PLANS TO INFORM THE HOSPITALIST. INFORMED CHIOMA JON AND DR PRICE THIS AM OF THE FINDINGS.
[2019-05-09 08:37] LABS: ABSOLUTE NEUTROPHILS 3.2 thou/uL (1.4-8.2); BASOPHILS 0.4 % (0.0-2.0); EOSINOPHILS 0.5 % (0.0-3.0); HEMATOCRIT 23.1 % (37.0-47.0); HEMOGLOBIN 7.8 gm/dL (12.0-15.0); LYMPHOCYTES 12.5 % (24.0-44.0); MCH 27.1 pg (26.0-34.0); MCHC 33.7 g/dL (28.0-37.0); MCV 80.4 fL (80.0-100.0); MONOCYTES 7.3 % (1.0-8.0); PLATELET COUNT 264 thou/uL (150-400); POLYS 79.3 % (36.0-66.0); RBC 2.88 mil/uL (4.20-5.00); RDW 17.3 % (10.5-14.5); WBC 4.1 thou/uL (4.0-11.0)
[2019-05-09 08:54] LABS: CALCIUM 9.8 mg/dL (8.5-10.1); CREATININE 2.9 mg/dL (0.6-1.0); MAGNESIUM 2.5 mg/dL (1.8-2.4); POTASSIUM 3.7 mmol/L (3.5-5.1)
--- NOTE | 2019-05-09 09:37 | NUR ---
NURSE SENIOR BENEFITS ANALYST NOTIFIED BY Osiris RODRIGUEZ RN THIS AM THAT PATIENT WAS LETHARGIC THOUGHOUT MOST OF THE NIGHT, AND THAT RADHA THE PCT ALONG WITH Osiris RODRIGUEZ FOUND A BRIGHT PINK PILL ON THE PT'S CHEST WHEN REPOSITIONING HER AND GIVING CARE LATE LAST EVENING. Osiris RODRIGUEZ ALSO REPORTED THAT THE PCT RADHA NOTIFIED HER OF A WOUND ON PT'S BOTTOM, AND THIS WAS TREATED WITH BARRIER CREAM AND PT WAS REPOSITIONED THROUGHOUT THE NIGHT. RN REPORTED THAT THE PATIENT AND HER DAUGHTER WERE ASLEEP AND DID NOT AROUSE WHEN THEY CAME IN TO CARE FOR PT. CONCERN REGARDING THE PINK PILL AN THE PT'S LETHARGY THIS AM WAS NOTED TO DR. PRICE, AND TO DONTRELL GOLDMAN NP. NURSE SENIOR BENEFITS ANALYST ENTERED ROOM AT APPROX 0925 TO TALK WITH PATIENT AND DAUGHTER SUN. DONTRELL GOLDMAN NP AND RN'S JAMILA WERE AT BEDSIDE, AND PT WAS ASLEEP IN RECLINER WITH FEET ELEVATED, AND SUN WAS INT HE ROOM. NM STATED PT'S PROGRESS FROM ADMISSION REGARDING SLEEPINESS, AND HOW ALPRAZOLAM AND ANY SEDATING MEDS WERE STOPPED LAST WEEK, PT'S CURRENT HGB WAS 7.7, AND WE ARE MONITORING THIS. NOTED THE WOUND AND THE INTERVENTIONS THAT WE WILL DO INCLUDING CONTINUED REPOSITIONING EVERY 2 HOURS AND ADDING LOW AIRLOSS PUMP TO THE BED, A WAFFLE CUSHION TO THE CHAIR, OFF-LOADING ALL BONY PROMINENCES, AND GENEROUS USE OF BARRIER CREAM WITH FOLLOWING EACH TOILETING EPISODE. NOTED TO SUN KAUFFMANIGN THE PINK PILL THAT WAS FOUND ON THE PT'S CHEST BY THE RN AND FIELD CASE MANAGER, AND SUN STATED " I MAY HAVE GIVEN HER A BENADRYL. BUT I HAD ASKED THE RN FOR CLARITIN AND SHE WOULDN'T GIVE HER ONE." SUMAYA CUMMINS LOOKED IN EMAR AND INFORMED SUN THAT LORATADINE (GENERIC CLARITIN) WAS SCHEDULED AND GIVEN YESTERDAY MORNING. SUN WAS SATISFIED WITH THIS. EDUCATION PROVIDED THAT ANY MEDICATIONS WITHIN THE ROOM THAT SUN MAY HAVE NEED TO BE REMOVED IMMEDIATELY AND THAT NO MEDS WERE TO BE GIVEN TO THE PATIENT EXCEPT WHAT THE NURSE GIVES TO PT. SHE AGREED TO THIS AND STATED THAT THESE WILL BE REMOVED IMMEDIATELY. DAUGHTER REMAINS AT BEDSIDE. ME PROVIDED BUSINESS CARD TO SUN. PT AROUSED AND SMILED AT ME, AND NURSES ARE IN THE ROOM GIVING MEDICATIONS.
--- NOTE | 2019-05-09 09:47 | NUR ---
ADVERTISING DESIGNER and acute rehab nursing preparation supervisor discussed the concern if daughter ability to care for pt at home. cont with family education and processing needs. team training continued and will cont following as needed for dc needs.
--- NOTE | 2019-05-09 09:59 | NUR ---
GEOPHYSICAL OBSERVER DONTRELL ASKED THIS RN, DR PRICE, SECURITY AND ENRICHMENT SPECIALIST ROHIT TO TALK WITH PT'S DAUGHTER ABOUT CONCERNS REGARDING FINDING THE PINK PILL WITH PT AND THE CONCERN THAT SHE MAY BE GIVING MEDICATION TO HER MOM WITHOUT STAFF KNOWING. SPOKE TO THE DAUGHTER WITH DR PRICE PRESENT. TOLD DAUGHTER THAT WE WERE CONCERNED BECAUSE THIS RN AND THE CEMENTER MACHINE JOINER FOUND A PINK PILL ON PTS CHEST THAT WAS NOT PART OF PTS MEDICATION ORDERS. VOICED CONCERN ABOUT PT'S SEDATION LEVEL AND ASKED PTS DAUGHTER IF SHE WAS GIVING HER MOM MEDICATION WITHOUT TELLING STAFF. SHE STATED THAT SHE DID HAVE BENADRYL IN THE ROOM BUT THAT SHE WAS NOT GIVING HER MOM ANY MEDICATION. SECURITY SEARCHED ROOM FOR MEDICATION. ENRICHMENT SPECIALIST ROHIT ASKED PT NOT TO BRING ANY MEDICATION INTO THE ROOM FROM HERE FORWARD. ALSO SHE STATED THAT STAFF WILL NEED TO CHECK HER BAG AND ROOM IF WE SUSPECT THAT SHE IS GIVING MEDICATION TO PT.
[2019-05-09 11:35] VITALS: BP 110/58
--- NOTE | 2019-05-09 11:50 | NUR ---
Pt ordered on a Calorie Count. No meal results available from the weekend for RD to calculate today. Speech reevaluated pt on 05/07 and upgraded diet from pureed to mechanically altered/chopped. This has helped improved PO intake some, but pt still barely taking in 10-50% of some meals. Of the last 4 recorded meals, pt averaging 30%, with 25-30% of 2 supplements recorded. Continues on vanilla Ensure Enlive BID mixed w/ orange sherbet. Note mention of wound to bottom in RN notes. No new wt's to view since 05/05 (130#). Pt was so sleepy at AM visit, unable to wake to eat breakfast. Daughter continues to voice pickiness of pt's eating. Encouraged her to bring in whole milk from home as pt thoroughly enjoys for high fat kcals. Will reassess for calorie count and f/up again tomorrow, 05/10/19.
[2019-05-09 14:26] VITALS: BP 131/59
[2019-05-09 19:24] VITALS: BP 144/71
--- NOTE | 2019-05-09 21:15 | NUR ---
ASSUMED CARE AT APPROX 0715. PATIENT NOTED TO BE EXREMELY DROWSY, UNABLE TO BE AROUSED. VSS. NIGHT NURSE VOICED CONCERN THAT PATIENT HAD RECEIVED A SEDATIVE FROM THE PATIENTS DAUGHTER WHO WAS AT BEDSIDE THROUGHOUT THE NIGHT AND WAS EQUALLY DROWSY AND DID NOT STIR OR AWAKEN WHEN STAFF ENTERED ROOM TO TURN PATIENT THROUGHOUT THE NIGHT. A PILL WAS FOUND ON THE PATIENT'S PERSON THAT PHARMACY BELIEVED TO BE BENADRYL. NURSE TORSION SPRING COILING MACHINE SETTER TIFFANY BARNETT, DR. PRICE, PATHOLOGY LABORATORY AIDE, HOSPITALIST LIQUOR RUNNER, AND SECURITY NOTIFIED. ROOM SEARCHED. PATIENT'S DAUGHTER INSTRUCTED NOT TO BRING ANY MEDICATION INTO ROOM. THIS NURSE AND OTHER FLOOR RN ENTERED ROOM TO ADMINISTER PATIENT'S SCHEDULED AM MEDICATIONS. HOSPITALIST LIQUOR RUNNER AND NURSE TORSION SPRING COILING MACHINE SETTER IN ROOM SPEAKING TO DAUGHTER ABOUT CONCERNS. PATIENT'S DAUGHTER WAS ASKED IF HER MOTHER HAD RECEIVED ANY MEDICATIONS NOT ON HER EMAR. PATIENT'S DAUGHTER STATED, "WELL, I DON'T KNOW. I MAY HAVE GIVEN HER SOMETHING, I DON'T REMEMBER." PATIENT WAS ABLE TO WAKE ENOUGH TO TAKE MORNING PILLS AND DRINK APPROX 3 OZ ORANGE JUICE WITH MIRALAX. PATIENT BEGAN TO TURN HER HEAD AWAY AND SHUT HER EYES. THERAPY ATTEMPTED TO COMPLETE SESSIONS WITH PATIENT. OT WORKED WITH PATIENT IN BED. PATIENT CONTINUED TO BE SOMNOLENT THROUGHOUT SHIFT. VITALS REMAINED STABLE, BLOOD GLUCOSE MONITORED PATIENT WAS TOO DROWSY TO AROUSE AND SWALLOW FOOD OR DRINK SAFELY. PROVIDER UPDATED THROUGHOUT SHIFT OF PATIENT CONDITION, LABS REPORTED TO PROVIDER, MEDS ADJUSTED PER HOSPITALIST LIQUOR RUNNER. WOUND CARE ROUNDED ON PATIENT FOR SMALL SACRAL WOUND DISCOVERED ON PM SHIFT. LOW AIRLOSS PUMP FOR MATTRESS OBTAINED. BARRIER CREAM APPLIED GENEROUSLY ON EACH TURN/POSITON CHANGE EVERY TWO HOURS. HEEL PROTECTOR BOOTS AND WAFFLE CUSHION OBTAINED FOR PATIENT. DRESSING CHANGED TO RIGHT KNEE. SCD'S ON WHILE PATIENT IN BED. BREIF REMOVED TO PROTECT SKIN. WOUND CARE PHYSICIAN MENTIONED TO THIS RN THAT PATIENT'S DAUGHTER SEEMED EXTREMELY SOMNOLENT WELL, WOULD NOT AROUSE TO HIS GREETING, DID NOT AROUSE WHEN HE TOUCHED HER HAND. NURSE TORSION SPRING COILING MACHINE SETTER AND THIS RN ROUNDED ON PATIENT FOR TURN, NOTED DAUGHTER'S SOMNOLENCE. AT DINNER, PATIENT WAS BEGGINING TO WAKE, TRANSFERED WITH 2 PERSON ASSIST TO RECLINER TO SIT UP. PATIENT WAS ENCOURAGED TO EAT AND DRINK. PATIENT REPORTED NAUSEA AFTER A FEW BITES OF FOOD. ZOFRAN ADMINISTERED PER EMAR. UPON REASSESSMENT, PATIENT DID NOT REPORT MUCH RELIEF AND WAS AGAIN TOO DROWSY FOR MEDS TO BE SAFELY ADMINISTERED. NIGHT RN NOTIFIED PATIENT DID NOT RECEIVE EVENING XARELTO DOSE BY END OF SHIFT. PATIENT BLADDER SCANNED, 466 NOTED IN BLADDER, PATIENT ABLE TO VOID BY BEGGINING OF DIRECTOR SMB SALES. FALL PRECAUTIONS IN PLACE. PATIENT ROUNDED ON HOURLY. PATIENT TURNED Q2 WHILE IN BED AND ALTERNATED OFFLOADING HIPS WHILE UP IN RECLINER, WAFFLE CUSHION IN SEAT. PATIENT RESTING IN BED, DAUGHTER AT BEDSIDE, AT CHANGE OF SHIFT.
--- NOTE | 2019-05-10 05:05 | NUR ---
PATIENT ALERT AND ORIENTED [place], PLACE, AND TIME. DID NOT KNOW WHY SHE WAS IN HOSPITAL. SHE WAS VERY ALERT AT THE BEGINNING OF THE SHIFT. UP TO THE BATHROOM WITH ASSIST OF 2, GATEBELT AND WALKER, PATIENT DID VERY WELL. DENIES PAIN. DAUGHTER AT BEDSIDE. SLEPT MOST OF NIGHT.
[2019-05-10 08:00] VITALS: BP 150/76
--- NOTE | 2019-05-10 13:32 | NUR ---
team meeting, recommendation. issues discussed and dcp. re team
[2019-05-10 13:55] LABS: ALBUMIN 3.6 g/dL (3.4-5.0); DIRECT BILIRUBIN 0.2 mg/dL (<0.1-0.3); TOTAL BILIRUBIN 0.5 mg/dL (<0.1-1.0); TOTAL PROTEIN 7.4 g/dL (6.4-8.2)
--- NOTE | 2019-05-10 15:28 | HC ---
[facility] [place] [address] CONSULTATION Name: HARLEEN ALVARES Room #: 506-1 ADM IN M.R.#: [id number] Admission: 05/05/19 Attend Phys: Drake Contreras MD Discharge: Date of : 36 Report #: [id number] THIS REPORT FOR: //name// CC: Drake Church DATE OF SERVICE: 05/09/2019 CHIEF COMPLAINT: Sacral pressure ulceration and right knee wound. HISTORY OF PRESENT ILLNESS: This is an 84-year-old female patient who I have been asked to see in the rehabilitation unit today. The patient was admitted with multifactorial weakness and was admitted to the rehab facility on 04/30/2019. She was noted to have an abrasion or traumatic wound to her right knee as well as a small ulceration to the coccyx. I have been asked to see with regard to wound care. The patient is quite somnolent. She does awaken briefly when her name is called. She, however, does not answer any questions. 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 She has a history of hypertension, atrial fibrillation, urinary retention, migraine headaches, hyperlipidemia, and chronic diastolic heart failure. ALLERGIES: Include MEPERIDINE, IODINE, MORPHINE, CODEINE, and LATEX. MEDICATIONS: Include Tylenol, alprazolam, Pacerone, amlodipine, aspirin, Lipitor, bisacodyl, vitamin D, ferrous sulfate, loratadine, Remeron, Zofran, polyethylene glycol, Xarelto, sertraline, and tamsulosin. SOCIAL HISTORY: The patient has no history of alcohol or tobacco use. She does live at home with her family. FAMILY HISTORY: Noncontributory. REVIEW OF SYSTEMS: Not obtainable due to the patient's decreased level of consciousness. She does not answer questions and briefly arouses to tactile stimulation and calling up her name. PHYSICAL EXAMINATION: VITAL SIGNS: At this time include temperature 36.9, pulse 78, respiratory rate 16, and blood pressure 131/59. GENERAL: This is a chronically ill-appearing female patient who appears to be in no distress. HEENT: Head normocephalic. Nose and throat are clear. NECK: Supple. LUNGS: Clear. [address] [address] CONSULTATION Name: HARLEEN ALVARES Room #: 506-1 ADM IN M.R.#: [id number] Admission: 05/05/19 Attend Phys: Drake Contreras MD Discharge: Date of : 36 Report #: [id number] HEART: Regular rhythm. ABDOMEN: Soft. SKIN: Examination of the sacral gluteal region demonstrates a very small stage III ulceration to the tip of the coccyx. There is good granulation tissue in the base. No exposure of deep structures. No infection with normal appearing epithelium surrounding this. The lower extremities demonstrate a small abrasion to the prepatellar region. There is evidence of new epithelialization only a small area remains open. It is clean, healthy, granulating without infection. NEUROLOGIC: The patient appears to have some right-sided weakness. She is not cooperative for a neurological exam. LABORATORY DATA: Include white blood cell count 4.1 and hemoglobin 7.8. Sodium 139, potassium 3.7, chloride 102, BUN 21, creatinine 2.9, glucose 108, and magnesium is 2.5. Albumin is low at 2.8. CLINICAL IMPRESSION: 1. Stage III pressure ulcer to the coccyx. 2. Abrasion to the right pretibial region. 3. History of cerebrovascular accident. 4. Moderate protein-calorie malnutrition. 5. General debility and deconditioning. RECOMMENDATIONS: At this point in time, the patient will be placed on low air loss mattress, q.2 hour turning and positioning. Recommend PRAFO boots while she is in bed for pressure prophylaxis of her heels, which are currently intact. Recommend moisture barrier cream with zinc to the coccyx twice daily. We will recommend a bordered foam Thursday, Thursday, Thursday, and as needed to the right knee. She will need aggressive nutritional support to maximize wound healing. I appreciate being asked to see her in consultation. <ELECTRONICALLY SIGNED> By: Robert Diaz MD 05/10/19 1528 [id number] Robert Diaz MD /nt
--- NOTE | 2019-05-10 19:46 | NUR ---
PATIENT ORIENTED TO SELF AND LOCATION. SEEMS TO HAVE DIFFICULTY EXPRESSING HERSELF. DAUGHTER AT BEDSIDE FOR MUCH OF THE DAY, BUT DAUGHTER INDICATED LEAVING DURING MID-DAY FOR A FEW HOURS BEFORE RETURNING. DAUGHTER STATE SHE SPENT THE NIGHT HERE. PHONE CALL FROM PATIENT SISTER DEEP, INQUIRING ABOUT THE PATIENT. PATIENT NEEDS TO DRINK AND EAT MORE AND IS LOOSING WEIGHT PER DIETARY. DIETARY IS EXTENDING CALORIE COUNT WITH ENVELOPE OUTSIDE ROOM. STAFF INFORMED TO RECORD ALL INTAKE. PATIENT HAD MEDIUM TO LARGE BOWEL MOVEMENT WITH DAUGHTER ASSISTING PATIENT WITH NURSE TO BATHROOM TOILET. PATIENT ON TOILET FOR EXTENDED PERIOD. BARRIER CREAM APPLIED TO BUTTOCKS AND SMALL WOUND AT TOP OF GLUTEAL FOLD. DAUGHTER NEEDED QUEING TO PATIENT NEEDING TO RETURN TO BED SINCE PATIENT BECOMING VERY FATIGUED IN BATHROOM. DAUGHTER INSISTED ON PATIENT'S RECTUM BEING CLEAN BEFORE RETURNING TO BED. THIS NURSE INDICATED PATIENT CAN BE CLEANED AFTER PATIENT RETURNS TO BED. PATIENT RETURNED TO BED AND COMPLETED CLEANING PATIENT AND POSITIONE PATIENT IN BED. BUILT REPORE WITH PATIENT AND SHE SMILED SEVERAL TIMES AT THIS NURSE DURING THE SHIFT. PATIENT ABLE TO TAKE HER OWN MEDS PLACED IN APPLESAUCE WITH A SPOON AND PROMPTING. PATIENT MORE ALERT TODAY THAN YESTERDAY PER DAUGHTER AND STAFF. DAUGHTER SEEMS APPRECIATIVE OF THE CARE RECEIVED TODAY HOWEVER, DIDN'T INDICATE SHE WAS THE REASON STATE INSPECTORS WERE IN THE HOSPITAL.
[2019-05-10 19:50] VITALS: BP 146/75
[2019-05-11 06:23] LABS: ABSOLUTE NEUTROPHILS 3.1 thou/uL (1.4-8.2); BASOPHILS 0.4 % (0.0-2.0); EOSINOPHILS 0.9 % (0.0-3.0); HEMATOCRIT 20.9 % (37.0-47.0); HEMOGLOBIN 7.1 gm/dL (12.0-15.0); LYMPHOCYTES 13.3 % (24.0-44.0); MCH 27.2 pg (26.0-34.0); MCHC 34.2 g/dL (28.0-37.0); MCV 79.5 fL (80.0-100.0); MONOCYTES 9.5 % (1.0-8.0); PLATELET COUNT 251 thou/uL (150-400); POLYS 75.9 % (36.0-66.0); RBC 2.62 mil/uL (4.20-5.00); RDW 17.1 % (10.5-14.5); WBC 4.1 thou/uL (4.0-11.0)
--- NOTE | 2019-05-11 06:32 | NUR ---
ASSUMED CARE OF PT AT 1915. PT IS ALERT AND ORIENTED TO PERSON, PLACE AND SITUATUION, VITAL SIGNS ARE STABLE. PT EXPRESSED HERSELF WHEN TALKED TO DIRECTLY. DAUGHTER CALLED APPROXIMATELY EVERY 30 MINUTES TO EITHER CHANGE PT, TURN PT, FEED PT, CHANGE LINENS, CLEAN ROOM, CHANGE TEMPERATURE. AT APPROXIMATELY 0300 DAUGHTER CALLED NURSING INTO ROOM AND STATED THAT PT WANTED PRAFO BOOTS AND SCD'S REMOVED. PT WAS SLEEPING AT THE TIME. DAUGHTER COUNSELLED ABOUT NEED TO PRAFO BOOTS AND SCD'S. DAUGHTER VERBALLY EXPRESSED UNDERSTANDING AND CONTINUED TO INSIST THAT THEY BE REMOVED. PT ENCOURAGED TO DRINK FLUIDS WHEN STAFF WAS IN ROOM. BARRIER CREAM APPLIED TO BUTTOCKS WHEN PT WAS TURNED AND CLEANED. DAUGHTER ENQUIRED ABOUT X-RAY OF PT ARM AND ASKED "DOES IT SHOW WHICH CHEMISTRY LECTURER DID IT?" NURSING TOLD DAUGHTER THAT QUESTIONS REGARDING X-RAY WOULD BE DIRECTED TO HOSPITALIST. DURING FIRST CHANGING AND TURNING DURING SHIFT DAUGHTER REPORTED THAT SHE WAS UNAWARE THAT PICTURES HAD BEEN TAKEN OF PT BOTTOM. DAUGHTER WAS TOLD THAT NURSING HAD TAKEN PICTURES ON THE . DAUGHTER STATED TO NURSING THAT SHE TOOK PICTURES OF OPEN AREA TO BECAUSE "THE HOSPITAL WILL GET FINED FOR CAUSING THIS." PT TOLERATED PO MEDICAITONS WHOLE IN APPLESAUCE AND WITH THIN LIQUIDS. FALL PRECAUTIONS IN PLACE AND NURSING WILL CONTINUE TO MONITOR.
[2019-05-11 06:40] LABS: CALCIUM 9.3 mg/dL (8.5-10.1); CREATININE 2.6 mg/dL (0.6-1.0); MAGNESIUM 1.8 mg/dL (1.8-2.4); PHOSPHORUS 3.7 mg/dL (2.5-4.9); POTASSIUM 3.1 mmol/L (3.5-5.1)
[2019-05-11 08:45] VITALS: BP 131/65
--- NOTE | 2019-05-11 09:50 | NUR ---
ASSUMED CARE OF PT APPROX 0715, K+ 3.1 PUBLIC HEALTH DENTIST AWARE AND WILL WRITE ORDERS PT IS ALERT AND ORIENTED TO DAUGHTER, FACT SHE'S IN HOSPITAL ([facility] WAS HER ANSWER), COULDN'T REMEMBER HER BDATE, IS NOT IMPULSIVE AT THIS TIME. DAUGHTER LEFT TO GO HOME AND RUN ERRANDS. REMEMBERED THIS NURSE FROM ANOTHER FLOOR AND WELCOMED. PT KNOWS SHE'S TO STAY HYDRATED AND THUS FAR HAS BEEN FOLLOWING THESE INSTRUCTIONS THIS A.M. WEAK LOG CUT OFF SAWYER, SHOWS RETURN DEMO FORKLIFT TRUCK MECHANIC LIGHT USE
--- NOTE | 2019-05-11 13:22 | NUR ---
Nutrition: Full days worth of menus were kept to record calorie count. Pt consumed 300 kcals and 13 gm protein meeting 18% of needs. Providing supplements and food preferences as able. Family brought in food today. Continue calorie count one more day. Suggest consideration of appetite stimulant. May need to consider PEG if po does not improve and POC is aggressive.
--- NOTE | 2019-05-11 13:25 | NUR ---
PT SHOOK HER HEAD NEGATIVE TO TAKING PILLS THIS A.M. PER REPORT PT TAKES THEM CRUSHED OR ONE AT A TIME WHOLE IN APPLESAUCE OR PUDDING. I ENCOURAGED PT TO TAKE HER MEDS CRUSHED IN PUDDING (SHE DID THIS ON ANOTHER UNIT DOWNSTAIRS FOR THIS NURSE). SHE TOOK SMALL BITES OF THE PUDDING W/CRUSHED MEDS, SHOOK HER HEAD NO AND STARTED GAGGING, REGURGITATED SEVERAL TIMES ABOUT 125ML OF THE MEDICATION. COMMUNICATED W/SENIOR UI SOFTWARE ENGINEER AND SPOKE W/SPEECH. GIVING MEDS THE WAY THAT'S RECOMMENDED. GOT K+ IN POWDER FORM AND PT REFUSED TO DRINK AND FAMILY ASKED THAT WE CHANGE IT BACK TO PILL FORM. ENCOURAGED PT TO DRINK TO KEEP HER ELECTROLYTES WNL TO AVOID ANY HEART DYSRHYTHMIA ISSUES. FAMILY SAID SHE SHOULDN'T BE MADE TO DRINK IT. SPOKE W/SENIOR UI SOFTWARE ENGINEER AGAIN. NO FURTHER ORDERS. WILL ATTEMPT AGAIN NEXT ROUND. LATER FAMILY CAME OUT AND APOLOGIZED FOR HARSHNESS, EXPLAINED WE'RE JUST FOLLOWING PHYSICIAN'S ORDERS, ETC. GIVE SNACKS TO FAMILY WHILE THEY VISIT AND HELP W/PT (THEY BRING IN FOOD FOR PT; EVERYONE AWARE). WILL CONTINUE TO MONITOR
--- NOTE | 2019-05-11 14:56 | NUR ---
WOUND CARE FOLLOW UP; ROUNDING WITH DR SANDHU AND SIDNEY MANAGING COGNITIVE ENGINEER. THE RIGHT KNEE IS FRAGIALLY HEALED. OTHERWISE UNREMARKABLE. RECOMMENDATIONS; NO CHANGES AT THIS TIME. DISCUSSSED WITH RN
--- NOTE | 2019-05-11 15:27 | NUR ---
WOUND CARE TOOK CARE OF PT, PLACED THE WET CHUX IN THE TRASH AND DAUGHTER GOT UPSET, AND TOSSED THE BAG OUTSIDE THE DOOR. ENCOURAGED FAMILY TO ALLOW STAFF TO HANDLE THESE KINDS OF ACTIVITIES. WILL CONTINUE TO ADM AND WORK W/PT AND FAMILY
[2019-05-11 19:59] VITALS: BP 136/61
[2019-05-12 08:45] VITALS: BP 132/75
--- NOTE | 2019-05-12 13:42 | NUR ---
Nutrition: Day 2 calorie count showed po met ~20% of needs. Pt with consistently inadequate intake despite interventions. REC consider additional appetite stimulant or address PEG tube for supplemental nutrition. REC obtain new weight. No weight since 05/05
--- NOTE | 2019-05-12 17:00 | NUR ---
PER VERBAL REPORT BY RN GOPAL DENISE, PT WAS ALERT AND TALKING, FOLLOWING DIRECTIONS, EATING AND DRINKING BETTER THIS AM WHEN NO FAMILY WAS IN THE ROOM WITH HER. THIS AFTERNOON AFTER PT'S DAUGHTER ARRIVED IN THE ROOM, PT BECAME WITHDRAWN, CLOSED HER EYES, AND NO LONGER RESPONDED VERBALLY. RN VERBALIZED CONCERN REGARDING HER SIGNIFICANT CHANGE IN DEMEANOR WITH THE ARRIVAL OF HER DAUGHTER. PT IS SLEEPING IN THE BED CURRENTLY. RN MONITORING HOURLY, AND ENSURING SAFETY.
--- NOTE | 2019-05-12 18:35 | NUR ---
ASSUMED CARE OF PT AT 0715. PT IS ALERT AND ORIENTED TO PERSON AND PLACE. PT ABLE TO PARTICIPATE IN THERAPIES THIS MORNING AND TOLERATED PO MEDICAITONS WHOLE IN APPLESAUCE. PT WAS ABLE TO TOLERATE INCREASED NUTRITIONAL INTAKE THIS MONRING. PT WAS SMILING AND HAVING CONVERSATIONS WITH NURSING THIS MONRNING. DAUGHTER WAS OUT OF ROOM THIS MORNING BUT DID RETURN TO UNIT AFTER LUNCH. PT DID BECOME MORE WITHDRAWN FOLLOWING THE RETURN OF HER DAUGHTER WITH INCREASED LETHARGY. PHYSICAL THERAPISTANDER DISCUSSED CONCERNS ABOUT PT BEHAVIOR WITH THIS NURSE AND CONCERNS BROUGHT TO THE ATTENTION OF IT ARCHITECT. PT TRANSFERS AND AMBULATES WITH 1 PERSON MIN-MOD ASSIST WITH GAIT BELT AND WALKER. REPORTS NO PAIN. MID MORNING PT HAD VERY LARGE AMOUNTS OF GREEN WATERY BOWEL IN BRIEF AND TOILET. CATTLE TESTER, DONTRELL, NOTIFIED AND ASKED THAT GI BE CONSULTED. THIS NURSE CALLED GI TWICE DURING SHIFT AND NO RETURN CALL RECEIVED. PT HAS NOT HAD A REOCCURANCE OF STOOL AT THIS TIME AND IS RESTING IN HER BED. FALL PRECAUTIONS IN PLACE AND NURSING WILL CONTINUE TO MONITOR.
[2019-05-12 19:55] VITALS: BP 132/59
--- NOTE | 2019-05-12 22:53 | NUR ---
Care assumed of patient at 1915: Patient alert and oriented to person. Patient confused and forgetful. While asking orientation questions, patient would refer to her daughter to answer for her. Patient assisted to the bathroom with mod assist x1, FWW, gait belt. Patient continent of bladder at that time. Small BM with thin green mucous like stool. Patient took medication whole in a couple bites of applesauce. Patient declined any other HS snack. Open area to coccyx cleansed with wound cleanser and Z-guard applied. Patient denies pain or discomfort at this time. Dressing to right knee is intact. Patient interactive with staff and smiling at times. Patient has had no episodes of incontinence and has been turned twice since start of shift. Patient resting quietly in bed at this time.
[2019-05-13 05:59] LABS: ABSOLUTE NEUTROPHILS 3.2 thou/uL (1.4-8.2); BASOPHILS 0.4 % (0.0-2.0); EOSINOPHILS 0.5 % (0.0-3.0); HEMATOCRIT 21.3 % (37.0-47.0); HEMOGLOBIN 7.3 gm/dL (12.0-15.0); LYMPHOCYTES 13.6 % (24.0-44.0); MCH 27.2 pg (26.0-34.0); MCHC 34.3 g/dL (28.0-37.0); MCV 79.4 fL (80.0-100.0); MONOCYTES 9.7 % (1.0-8.0); PLATELET COUNT 248 thou/uL (150-400); POLYS 75.8 % (36.0-66.0); RBC 2.69 mil/uL (4.20-5.00); RDW 17.6 % (10.5-14.5); WBC 4.2 thou/uL (4.0-11.0)
[2019-05-13 06:13] LABS: CALCIUM 9.3 mg/dL (8.5-10.1); CREATININE 2.6 mg/dL (0.6-1.0); MAGNESIUM 1.8 mg/dL (1.8-2.4); TOTAL BILIRUBIN 0.4 mg/dL (<0.1-1.0); TOTAL PROTEIN 6.1 g/dL (6.4-8.2)
[2019-05-13 06:17] LABS: POTASSIUM 2.9 mmol/L (3.5-5.1)
--- NOTE | 2019-05-13 06:26 | NUR ---
Patient had labs drawn this AM. Lab called with critical potassium level of 2.9. CHIOMA Quinones notified. Order obtained for Potassium Chloride 40meq q2 hours x2 doses. Order entered and noted. Lab results and medication ordered was explained to daughter and patient. First dose provided at this time.
[2019-05-13 07:30] VITALS: BP 140/73
[2019-05-13 08:30] VITALS: BP 140/73
--- NOTE | 2019-05-13 09:17 | EKG ---
[place] [address] [facility] [place] [address] ELECTROCARDIOGRAM REPORT Name: HARLEEN ALVARES Room #: 506-1 ADM IN M.R.#: [id number] Admission: 05/05/19 Attend Phys: Drake Contreras MD Discharge: Date of : 37 Report #: [id number] THIS REPORT FOR: //name// [facility] Test Date: 2019-05-12 Test Time: 15:44:50 Pat Name: HARLEEN ALVARES Department: Room: 506 Gender: F Loop Machine Operator: Ignacio PUENTES : 1935 Requested By: Neetu Silvestre Order Number: [id number] MD: Walter Ibanez Measurements Intervals [place] Rate: 79 P: 46 DC: 201 QRS: 14 QRSD: 96 T: 98 QT: 443 QTc: 508 Interpretive Statements Sinus rhythm Nonspecific ST and T wave abnormality Prolonged QT interval Compared to ECG 04/30/2019 01:31:57 ST segment abnormality is less prominent Electronically Signed On 05-13-2019 9:17:20 CDT by Walter Ibanez [email or web address] <ELECTRONICALLY SIGNED> By: Walter Ibanez MD, [facility] 05/13/19 09 1544 1544 Walter Ibanez MD, [facility] /EPI
--- NOTE | 2019-05-13 09:29 | NUR ---
ASSUMED CARE OF PT AT 0715. RECEIVED REPORT FROM YOUSIF RN. K 2.9 SHE CALLED AND GOT ORDER FOR SUPPLEMENT. THIS TAKE OUT WAITER/WAITRESS REASSESSED PT AND GAVE PT'S MORNING MEDS AND FIRST DOSE OF K POWDER WITH APPLE SAUCE. TOLERATED OK AND WILL GIVE SECOND DOSE OF K 2 HR LATER. PT IS ALERT AND ORIENTED TO PERSON AND PLACE. PT ABLE TO PARTICIPATE IN THERAPIES THIS MORNING. OT GAVE PT SHOWER. PT ATE 25% OF BREAKFAST. ENCOURAGED PT TO DRINK ENSUERE. OFFERED SUPPORTIVE CARE AND ENCOURAGEMENT. PT WAS SMILING AND HAVING CONVERSATIONS WITH NURSING THIS . DAUGHTER LEFT THIS AM. TRANSFERS AND AMBULATES WITH 1 PERSON MIN-MOD ASSIST WITH GAIT BELT AND WALKER. REPORTS NO PAIN OR NAUSEA. REPORTED HAD BM THIS AM. LABS REVIEWS. VSS ON RA. WILL CONTINUE TO MONITOR K LEVEL. FALL PRECAUTIONS IN PLACE AND PT IS RESTING CALMLY IN RECLINER WHILE WAITING FOR NEXT THERAPY. WILL CONTINUE TO MONITOR. NURSING WILL CONTINUE TO MONITOR.
--- NOTE | 2019-05-13 16:10 | NUR ---
WOUND CARE FOLLOW UP; ROUNDING WITH DR SANDHU AND SIDNEY RESOLUTION ANALYST. THE RIGHT KNEE IS HEALED. NO OTHER CONCERNS AT THIS TIME. RECOMMENDATION; D/C KNEE DRESSING. DISCUSSED WITH STAFF
[2019-05-13 19:25] VITALS: BP 133/69
--- NOTE | 2019-05-14 02:06 | NUR ---
[facility] CARE OF PT AT 1915. PT IS ALERT AND ORIENTED TO PERSON, PLACE AND TIME, VITAL SIGNS ARE STABLE. PT AM POTASSIUM ON 05/13 WAS CRITICALLY LOW AND WAS REPLACED WITH PO MEDICAITONS. NURSING CONTINUING TO MONITOR PT FOR HYPOKALEMIA, AT THIS TIME DENIES ANY CRAMPS, NUMBNESS, TINGLING, OR PALPITATIONS, BUT DID REPORT THAT EARLIER IN THE DAY SHE DID EXPERIENCE PALPITATIONS. FOLLOW-UP LAB DRAW IN AM. PT TURNED EVERY 2 HOURS, BARRIER CREAM APPLIED NEEDED TO OPEN AREA ON COCCYX, NO BRIEF ON WHILE IN BED. PT DENIES NAUSEA AND PAIN AT THIS TIME. PT IS PLEASENT AND SPEAKING A FEW WORDS TO STAFF WHEN IN ROOM. DAUGHTER IS AT BEDSIDE. FALL PRECAUTIONS IN PLACE AND NURSING WILL CONTINUE TO MONITOR.
[2019-05-14 06:35] LABS: CALCIUM 9.4 mg/dL (8.5-10.1); CREATININE 2.5 mg/dL (0.6-1.0); POTASSIUM 4.4 mmol/L (3.5-5.1); TOTAL BILIRUBIN 0.4 mg/dL (<0.1-1.0)
[2019-05-14 08:30] VITALS: BP 153/71
--- NOTE | 2019-05-14 13:13 | NUR ---
ASSUMED PT CARE AT 0900. NIGHT RN GAVE PRN TYLENOL EARLIER DENIES PAIN NOW. K4.4 TODAY. VSS ON RA. PT SLEPT WELL LAST NIGHT. DISCUSSED PLAN WITH PT AND ENCOURAGED PT TO BE UP IN RECLINER ROOM SO SHE CAN EAT BETTER. DAUGHTER AT BEDSIDE. PT ATE SOME BREAKFAST AND BANANA. HAS FLAT EFFECT. C/O NAUSEA BEFORE LUNCH. GAVE ZOFRAN BEFORE GIVE RITALIN WITH APPLE SAUCE. NOT SO LONG PT HAD LARGE AMOUNT OF FOOD PARTICLES. CALLED AND NOTIFIED DR. CELESTE THAT PT HAS PROBLEMS WITH DIGESTION AND VOMITING. DR. CELESTE WANTS ST TO FOLLOW UP WITH PT'S SWALLOWING AND PRN COMPRAZINE SUPPOSITORY FOR NAUSEA AND THEY WILL CONTINUE TO FOLLOW UP WITH PT NEXT WEEK.PT FELT BETTER AFTER VOMITTING. WORKED WITH PT AND ABLE TO WALKED ON THE [place] WITH PHYSICAL THEAPIST. TOLERATED WELL. PT IS WORKING WITH OT AT THIS MOMENT. REASSESSEMENT PER CHART. CONTINUE TO APPLY BARRIER BETWEEN BUTTOCK. FALL PRECAUTION IN PLACE. WILL CONTINUE TO MONITOR. IN BED. WILL CONTINUE TO MONITOR.
[2019-05-14 20:25] VITALS: BP 138/69
--- NOTE | 2019-05-15 01:20 | NUR ---
RECEIVED REPORT FROM OFFGOING DAY NURSE. ASSUMED CARE @ 1900 ON 05/14/19. PATIENT SLEPING, AWOKE TO VOICE, AGREED TO HAVE VS TAKEN AND ASSESSMENT COMPLETE. C/O STOMACH PAIN. ZOFRAN GIVEN FOR NAUSEA, TYLENOL GIVEN FOR 8/10 STOMACH PAIN. HRRR, LUNGS CTA ALL GARCIA, ABD NORMOACTIVE R FOOT HAS EDEMA, PEDAL PULSES PRESENT BILAT. TURN Q2 HOUR FOR PREVENTION OF SKIN BREAKDOWN. DAUGHTER @ BEDSIDE. CALL LIGHT WITHIN REACH, BED ALARM SET, WILL CONTINUE TO MONITOR Q 1 HOUR FOR PATIENT SAFETY.
--- NOTE | 2019-05-15 09:04 | NUR ---
ASSUMED CARE OF PT AT 0715. WAISTBAND SETTER LOCKSTITCH NURSE NOTED DURING REPORT THAT DAUGHTER HAS OTC TUMS IN ROOM AND THAT DAUGHTER ADMITTED TO HER THAT SHE WAS GIVING TUMS TO PT THROUGHOUT THE NIGHT. ACCORDING TO NIGHT NURSE DAUGHTER WAS COUNSELED AGAINST SELF MEDICAITING PT. TUMS IN ROOM THIS MORNING. DEVELOPMENT COACH NOTIFIED ABOUT INCIDENT AND INSTRUCTED THIS NURSE TO CONTACT PROVIDER SECURITY TEST ENGINEER ABOUT INCIDENT. DR. ALCALA WAS CONTACTED AND ORDERS RECEIVED FOR TUMS PRN, BUT NO ORDERS FOR TUMS AT BEDSIDE. PT IS ALERT AND AWAKE IN BED. PT NOT RESPONDING TO QUESTIONS FOR ORIENTATION. TOLERATED PO MEDICAITONS THIS MORNING WHOLE ONE AT A TIME IN APPLESAUCE. TURNED, CHANGED, AND BARRIER CREAM APPLIED. DURING MORNING MED PASS WITH AIDE IN ROOM. PT IS WITHDRAWN AND FLAT THIS MORNING AND REFUSING TO PARTICIPATE WITH CARES. FALL PRECAUTIONS IN PLACE AND NURSING WILL CONTINUE TO MONITOR.
[2019-05-15 09:10] VITALS: BP 125/61
--- NOTE | 2019-05-15 11:25 | NUR ---
SPOKE TO DAUGHTER ABOUT TUMS ORDERS AT APPROXIMATELY 1030. DAUGHTER STATES THAT THE TUMS ARE HERS, AND "I SOMETIMES GIVE THEM TO MY MAMA WHEN SHE NEEDS THEM AND SHE HAS NEVER HAD A PROBLEM WITH THEM, AND IT'S NOT LIKE THEY ARE MEDICINE." NURSE RESPONDED BY SAYING "THEY ARE CONSIDERED A MEDICAITON AND IN THE HOSPITAL A DOCTORS ORDER IS NECESSARY FOR THEM TO BE GIVEN TO A PATIENT AND IF THEY ARE ORDERED WE NEED TO MONITOR WHEN THEY ARE GIVEN AND HOW MANY ARE GIVEN." DAUGHTER SAID "WELL THAT'S JUST FINE, I GUESS I'LL GET RID OF THEM." DAUGHTER LEFT UNIT ABOUT 10 MINUTES LATER AND TOOK TUMS WITH HER. PT IS NOW SLEEPING IN ROOM AND IS DIFFICULT TO ROUSE, VITALS ARE STABLE. PT UNABLE TO PARTICIPATE IN THERAPIES OR CARES AT THIS TIME. NURSING WILL CONTINUE TO MONITOR
--- NOTE | 2019-05-15 19:35 | NUR ---
DURING SHIFT PATIENT'S DAUGHTER FREQUENTLY CALLED NURSING INTO ROOM INAPPROPRIATELY FOR MISCELLANEOUS REQUEST NOT PERTAINING TO PATIENT CARE OR NEEDS. DAUGHTER REQUESTED THAT NURSING STAFF BRING HER SNACK AND DRINKS FOR DAUGHTER AND GUEST USE. REQUESTED LINEN AND PILLOWS FOR HERSELF AND OTHER GUESTS INCLUDING PILLOWS AND SEVERAL WARM BLANKET, DAUGHTER THEN LEFT LINEN THROWN ON THE FLOOR AND CALLED STAFF IN TO PICK LINENS UP OFF THE FLOOR. DAUGHTER WAS FOUND TO BE ORDERING FOOD UNDER THE PATIENT'S NAME AND CONSUMING FOOD FROM PATIENT TRAY INCLUDING SALAD AND DRINK.
[2019-05-15 19:45] VITALS: BP 147/56
--- NOTE | 2019-05-16 01:13 | NUR ---
APATIENT ASSESSED AND IS ALERT X 1-2. DAUGHTER AT BEDSIDE. TURNED Q 2 HOURS TO PREVENT SKIN BREAK DOWN. INCONT OF BOWEL AND BLADDER. NO EDEMA NOTED. LUNGS CTA. UP WITH MAX ASSIST. HAS A FLAT EFFECT. TAKES MEDICATION PILLS WHOLE IN APPLES SAUCE. CAME IN WITH MALNUTRISH. NO NAUSEA OR VOMITING STATED. ON ROOM AIR. GENERAL PAIN STATED GIVEN TYLENOL WITH SOME RELIEF. UP WITH 1 PERSON ASSIST. HAS AN OLD CORE ON COCCYX THAT IS HEALED BY NOT BROKE OPEN. NO LOOSE DIARRHEA NOTED. LIVES WITH DAUGHTER. HAS A POOR APPETITE.IS ON A COLORIE COUNT. HAS A DRESSING ON RIGHT KNEE. REMAINS VERY FRAIL. VS STABLE CONT NLAN OF CARE. AND HELP ENCOURGE TO EAT MORE NAD TAKES FLUIDS.
[2019-05-16 09:05] VITALS: BP 124/70
--- NOTE | 2019-05-16 12:29 | NUR ---
ASSUMED CARE OF PT AT 0715. PT IS ALERT AND AWAKE. HAS FLAT AFFECT, BUT PARTICIPATES WITH THERAPY. PT NOT RESPONDING TO QUESTIONS FOR ORIENTATION. TOLERATED PO MEDICAITONS THIS MORNING WHOLE ONE AT A TIME IN APPLESAUCE. BE ON TURNED Q2HR AT BS BUT ABLE TO GO TO BATHROOM DURING DAY. SACRAL SORE HEALED, SCARRING NOW, AND BARRIER CREAM APPLIED FOR PREVENTION. REASSESSMENT PER CHART. LAST BM WAS YESTERDAY. PASSING GAS, DENIES PAIN. HAS DIFFICULT OF SWALLOWING, ST FOLLOW UP PER GI REQUEST. HAS POOR APPETITE. CONTINUE TO ENCOURAGE FOOD INTAKE. FALL PRECAUTIONS IN PLACE, CHECK FREQUENTLY FOR NEEDS AND SAFETY. DAUGHTER AT BEDSIDE. WILL CONTINUE TO MONITOR.
--- NOTE | 2019-05-16 13:46 | NUR ---
ASSUMED CARE OF PT AT 0715. PT IS ALERT AND AWAKE. HAS FLAT AFFECT PT NOT RESPONDING TO QUESTIONS FOR ORIENTATION. ONLY ANSWER QUESTION YES OR NO. TOLERATED PO MEDICAITONS THIS MORNING WHOLE ONE AT A TIME IN APPLESAUCE. BE ON TURNED Q2HR AT HS BUT ABLE TO GO TO BATHROOM DURING DAY. SACRAL SORE HEALED, SCARRING NOW, AND BARRIER CREAM APPLIED FOR PREVENTION. REASSESSMENT PER CHART. LAST BM WAS YESTERDAY. PASSING GAS, DENIES PAIN. HAS DIFFICULT OF SWALLOWING, ST FOLLOW UP PER GI REQUEST. HAS POOR APPETITE. CONTINUE TO ENCOURAGE FOOD INTAKE. C/O BACK PAIN. GAVE PRN TYLENOL. FALL PRECAUTIONS IN PLACE, CHECK FREQUENTLY FOR NEEDS AND SAFETY. DAUGHTER AT BEDSIDE. WILL CONTINUE TO MONITOR.
[2019-05-16 19:35] VITALS: BP 121/59
--- NOTE | 2019-05-17 00:40 | NUR ---
ASSESSMENT: PT RE;MAIN ALERT AND ORIENT TIMES THREE. DAUGHTER AT THE BED SIDE ALL NIGHT. PT DOES NOT SPEAK MUCH, BUT ALLOWS DAUGHTER TO SPEAK FOR HER. PT WAS ENCOURAGED TO SAY WHAT IT IS THAT SHE NEEDS/WANT. DAUGHTER REMINDED TO GIVE MOTHER TIME TO SPEAK FOR HERSELF. TURNED EVERY 2 HOURS. BARRIER CREAM APPLIED TO BUTTOM. VSS, AFEBRILE. DAUGHTER HAD MENTIONED TO THIS RN THAT SHE WOULD LIKE TO GET HER MOTHER TRANSFERRED INTO THE APT, ROOM 301. SHE STATE THAT SHE WAS GOING TO SPEAK WITH THE PT'S "DOCTOR" TOMMORROW. SLOW PROGRESS, WILL CONTINUE TO MONITOR.
[2019-05-17 05:55] LABS: HEMOGLOBIN 7.7 gm/dL (12.0-15.0); MCH 27.3 pg (26.0-34.0); MCHC 33.5 g/dL (28.0-37.0); MCV 81.4 fL (80.0-100.0); RBC 2.82 mil/uL (4.20-5.00); RDW 18.4 % (10.5-14.5); WBC 3.7 thou/uL (4.0-11.0)
[2019-05-17 07:35] VITALS: BP 104/47
--- NOTE | 2019-05-17 09:12 | NUR ---
ASSUMED CARE OF PT AT 0715. REPORTS SLEPT GOOD LAST NIGHT. DENIES PAIN AND N/V AT THIS MOMENT. PT IS ALERT & ORIENTED X3, FORGETFUL, HAS FLAT AFFECT NEEDS LOT OF ENCOURAGEMENT. OFFERED PRAYER WITH PT THIS AM. SHE IS DOING BETTER THIS AM. SMILING. ATE 4 PIECES OF CARBALLO, DRANK 1/3 OF ENSURE. 6 GRAPES AND TOOKED MORNING MEDS WITH WHOLE CART OF APPLE SAUCE. ST CONTINUE TO WORK WITH PT AND SAID PT IS BETTER TO CONTINUE TO BE ON [facility] CHOP. PT BE ON TURNED Q2HR AT BUT ABLE TO GO TO BATHROOM DURING DAY. SACRAL SORE HEALED, SCARRING NOW, AND BARRIER CREAM APPLIED FOR PREVENTION. REASSESSMENT PER CHART. LAST BM WAS 2 DAYS AGO. BS HYPOACTIVE. ON IRON, OFFERED PRN NIKOLE TABLET. PASSING GAS. CONTINUE TO ENCOURAGE FOOD INTAKE. FALL PRECAUTIONS IN PLACE, CHECK FREQUENTLY FOR NEEDS AND SAFETY. DAUGHTER AT BEDSIDE. WILL CONTINUE TO MONITOR.
--- NOTE | 2019-05-17 12:26 | NUR ---
team meeting, recommendation : pt have emesis today while working with ot, st, c/o abd pain cont. home with hh(pt, ot, st, nursing and sw ) on will need cont 11/05, cont with family daughter training when daughter ingris is here.
[2019-05-17 15:28] LABS: CALCIUM 9.8 mg/dL (8.5-10.1); CREATININE 3.3 mg/dL (0.6-1.0); POTASSIUM 4.2 mmol/L (3.5-5.1)
[2019-05-17 19:20] VITALS: BP 126/67
--- NOTE | 2019-05-18 03:23 | NUR ---
ASSESSMENT: PT REMAIN ALERT AND ORIENT TIMES FOUR. DAUGHTER AT THE BEDSIDE. VSS, AFEBRILE. PT TRIED TO HELP WITH TURNS TONIGHT AND DID LITTLE THINGS FOR HERSELF WITHOUT HER DAUGHTER'S HELP. VSS, ABRILE.NO BM, POOR APPETITE. NO EMESIS THIS SHIFT. KUB DONE WITH NO OBSTRUCTION. SLOW PROGRESS TOWARDS DC GOALS. WILL CONTINUE TO MONITOR.
[2019-05-18 07:45] VITALS: BP 136/72
--- NOTE | 2019-05-18 10:35 | NUR ---
ASSUMED CARE AT 0700. PATIENT IS ALERT AND ORIENTED X2. PATIENT HAS RIGHT AND LEFT SIDED WEAKNESS. LUNGS ARE CLEAR AND DEMINIHSED. ABD IS SOFT WITH BSX2. UP IN THE CHAIR FOR MEALS. FALL AND SAFETY PROTOCOLS IN PLACE. DENIES PAIN AT THIS TIME. CONTINUE TO PROGRESS SLOWLY TOWARDS D/C GOALS. WILL CONTINUE TO MONITER.
[2019-05-18 20:10] VITALS: BP 141/65
--- NOTE | 2019-05-19 02:09 | NUR ---
RECEIVED REPORT FROM OFFGOING DAY NURSE, ASSUMED CARE @ 1900, IN BED EYES CLOSED, RESPIRATIONS EVEN AND UNLABORED. ASSESSMENT COMPLETE, HRRR, ABD N X 4 Q LUNGS CTA ALL GARCIA, RESPIRATIONS SHALLOW. IV IN LEFT HAND RUNNING 100 CC OF NS. TOOK HS MEDS WHOLE IN APPLESAUCE WITH CINNAMON. PRN ZOFRAN PROVIDED @ 2100 FOR NAUSEA. WILL CONTINUE TO MONITOR Q 1 HOUR FOR PATIENT SAFETY.
[2019-05-19 07:20] VITALS: BP 143/79
--- NOTE | 2019-05-19 15:19 | NUR ---
ASSUMED CARE AT 0700. PATIENT IS ALERT AND ORIENTED TO PERSON. PATIENT SMYTH'S, BATTERY STACKER ARE EQUAL. LUNGS ARE CLEAR AND DEMINISHED. ABD IS SOFT WITH BSX4. UP IN BED FOR BREAKFAST. VERY SLEEPY TODAY. VOIDED 450 CC ELLEN COLORED URINE. FALL AND SAFETY PROTOCOLS INPLACE. DENIES PAIN AT THIS TIME. CONTINUES TO PROGESS VERY SLOWYLY TOWARDS D/C GOALS. WILL CONTINUE TO MONITER.
[2019-05-19 19:30] VITALS: BP 149/69
--- NOTE | 2019-05-20 03:30 | NUR ---
ASSUMED CARES AT 0700. PT IN AWAKE, ORIENTED TO PERSON AND SITUATION. DENIES PAIN. VITALS REMAIN STABLE. LS CLEAR/DIMINISHED, O2 SATS >92% ON RA. BS ACTIVE *4, ABDOMEN SOFT AND FLAT, NO BM SINCE 05/15 PT PASSING FLATUS. PT CONTINUES TO HAVE VERY POOR APPETITE. TOOK PILLS WHOLE IN APPLESAUCE, MULTIPLE ATTEMPTS REQUIRED TO COMPLETELY SWALLOW PILLS. PT REPOSITIONED Q2H, BARRIER CREAM APPLIED TO SACRAL WOUND. PT REMAINS INCONTINENT ON BLADDER. NS AT 100ML/HR ON LEFT HAND IV. Q1H VISUAL CHECKS. DAUGHTER AT BEDSIDE. CALL LIGHT WITHIN REACH. FALL PRECAUTIONS IN PLACE
[2019-05-20 08:00] VITALS: BP 156/75
--- NOTE | 2019-05-20 11:26 | NUR ---
PATIENT CARE WAS ASSUMED AT 0715.PATIENT IS ALERT AND ORIENTED X3.DAUGHTER IS AT BEDSIDE.PATIENT EATS AND DRINKS POORLY.DAUGHTER IS ENCOURAGING EATING AND DRINKING.PATIENT IS A Q2 TURNS.IV IS PATENT AND INTACT, WITH FLUIDS INFUSING.PT IS MAX ASSIST WHEN UP WITH NURSING, PT IS ABLE TO GET UP WITH WALKER AND GAIT BELT.PT HAS INCONTINENCE OF BOWEL AND BLADDER.BRIEF IS IN PLACE.SACRUM HAS SOME REDNESS, CREAM IS PLACED ON BUTTOCKS.LAST BM WAS 05/14.PT HAS CALL LIGHT,PHONE, AND PERSONAL BELONGINGS WITHIN REACH.
--- NOTE | 2019-05-20 12:00 | NUR ---
PATIENT MISSED 60 MIN ADL SESSION WITH OT D/T NAUSEA.
--- NOTE | 2019-05-20 15:16 | H ---
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 She nevertheless has been ambulatory, utilizing a walker. She was living with her daughter when she had the onset of acute mental status changes and increased weakness, falling and unable to get up. She was noted to have multifactorial encephalopathy with significant hypokalemia, elevated BUN and creatinine as well as confusion and disorientation. Question of a hypoxic component. She was medically treated with correction of her electrolytes. She was noted to have microcytic anemia, question multifactorial, has a history of iron deficiency. She was noted to have problems with swallowing and there was concern with extension of CVA with worsening of her swallowing function. She was seen by Speech Therapy and is on a pureed diet. She has had an overall functional decline and has cognitive issues with her multifactorial encephalopathy and has been admitted for acute in-hospital inpatient rehabilitation. 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 She has history of hypertension, atrial fibrillation, urinary retention in the past, history of migraine headaches, hyperlipidemia and chronic diastolic heart failure. MEDICATIONS: Please see the full medication listing. HABITS: No history of alcohol or tobacco abuse. SOCIAL HISTORY: She lives at home with her daughter, no steps. The patient's sister sometimes stays with her as well. She used a walker to get around. Her daughter is noted to be retired and is assisting her. REVIEW OF SYSTEMS: No current complaints of chest pain, shortness of breath or abdominal discomfort. PHYSICAL EXAMINATION: GENERAL: An 84-year-old -Romanian female, in no obvious distress. [address] [address] HISTORY AND PHYSICAL Name: HARLEEN ALVARES Room #: [address] [place] [address] IN M.R.#: [id number] Admission: 05/05/19 Attend Phys: Drake Contreras MD Discharge: Date of : 36 Report #: [id number] VITAL SIGNS: Last recorded temperature 97, pulse 93, respirations 18 and blood pressure 161/88. NEUROLOGIC: The patient is sleepy, but will easily arouse. She has the chronic tightening or abnormality of her left lower lip. HEENT: Facies otherwise appeared symmetric. She follows basic 1 step commands. CHEST: Sounded clear to auscultation. CARDIOVASCULAR: Regular rate and rhythm. ABDOMEN: Bowel sounds positive, nontender. GENITOURINARY AND RECTAL: Deferred. EXTREMITIES: She has functional range of motion of the upper extremities with strength of grade 4- to 3+/5 without any obvious focal weakness. Lower extremity strength is probably a grade 4 to 4-/5. Functionally, she has been min assist with basic transfers and has been ambulating a short distance min assist with a front-wheeled walker. ASSESSMENT: An 84-year-old white female with the following problem list: 1. Clinical cerebrovascular accident extension/acute dysphagia. 2. Multifactorial encephalopathy with likely toxic metabolic as well as hypertensive contributors to the encephalopathy. 3. Generalized weakness and debilitation. 4. Leukocytosis, resolved. 5. Anemia, no obvious active gastrointestinal bleeding. GI has been involved. 6. Electrolyte abnormalities. 7. Chronic kidney disease stage 3. 8. Hypertension. 9. History of migraine headaches. 10. Hyperlipidemia. 11. Chronic diastolic heart failure. 12. Prior history of multiple strokes as noted above. PLAN: The patient is admitted for acute in-hospital inpatient rehabilitation. From a postadmission physician evaluation perspective, there are no relevant changes since the preadmission screening. Please see the above review of prior and current medical and functional conditions and comorbidities. Please see the patient's previous and current functional status. As far as risk of complications, the patient has multiple medical comorbidities as noted above. Initial plan of care involves the interdisciplinary acute inpatient rehabilitation program with goal of maximizing her functional independence, so she can hopefully return back to her prior living situation. Measurable functional goals would be for her to become modified independent with basic transfers, mobility and ADLs and improved swallowing. We will also work on cognition, communication. Prognosis is reasonably good with estimated length of stay probably at least 10 days to 2 weeks and potentially longer if warranted. Potential barriers would include her multiple medical comorbidities and decreased functional status. [facility] [address] [place] [address] HISTORY AND PHYSICAL Name: ANITHA ALVARESTA Room #: 506-1 ADM IN M.R.#: [id number] Admission: 05/05/19 Attend Phys: Drake Contreras MD Discharge: Date of : 36 Report #: [id number] The patient meets diagnostic criteria for an acute in-hospital inpatient rehabilitation stay. She meets the medical necessity criteria. We will have the program consultant physicians continue to follow. She does have the tolerance for therapies and has appropriate discharge goals back to the home setting. <ELECTRONICALLY SIGNED> By: Drake Contreras MD 05/20/19 1516 [id number] Drake Contreras MD /[facility]
--- NOTE | 2019-05-20 15:16 | PLAN ---
[facility] [place] [address] REHAB UNIT PLAN OF CARE Name: HARLEEN ALVARES Room #: 506-1 ADM IN M.R.#: [id number] Admission: 05/05/19 Attend Phys: Drake Contreras MD Discharge: Date of : 36 Report #: [id number] THIS REPORT FOR: //name// [facility]: [facility] DATE OF SERVICE: 05/07/2019 OVERALL PLAN OF CARE The overall plan of care is based on the preadmission screen, post-admission physician evaluation and information garnered from therapy assessments. Functionally, the patient has been involved with therapies with transfers, mod assist, gait 20 feet min assist without a device. She has gone up and down 12 steps with min assist. In occupational therapy, lower body dressing, max assist. In speech therapy, she is on a pureed diet with thin liquids. She does have severe cognitive deficits and severe memory. PLAN: 1. Estimated length of stay is probably at least 10 days to 2 weeks. 2. Medical prognosis is reasonably good. 3. Anticipated interventions includes the interdisciplinary acute inpatient rehabilitation program. 4. Anticipated functional outcomes would be for the patient to become modified independent ideally with transfers, mobility and ADLs as well as improvement in cognition, so she can return back to the home setting. 5. Discharge destination would be back to the home setting where she lives with her daughter. 6. Expected therapy by discipline includes PT, OT and speech 1 hour per day each five days a week throughout the duration of the acute inpatient rehabilitation stay. <ELECTRONICALLY SIGNED> By: Drake Contreras MD 05/20/19 1516 [id number] Drake Contreras MD /nt
[2019-05-20 20:54] VITALS: BP 158/80
--- NOTE | 2019-05-21 03:09 | NUR ---
PT RESTING IN BED AT [facility]IFT. NS INFUSING AT RATE OF 100ML/HR THROUGH LT HAND. INCONTINANT X2 DURING THE NIGHT. CLEANED AND CHANGED. SKIN BARRIER TO BOTTOM, AND SMALL WOUND ON COCCYX. TURNED Q2H THROUGH THE NIGHT. DAUGHTER AT BEDSIDE. SLEPT WELL THROUGH THE NIGHT. TOOK HS MEDS WITH APPLESAUCE. A+O X3.
[2019-05-21 08:30] VITALS: BP 146/79
[2019-05-21 15:13] LABS: HEMATOCRIT 24.4 % (37.0-47.0); HEMOGLOBIN 8.3 gm/dL (12.0-15.0); MCH 27.7 pg (26.0-34.0); MCHC 33.9 g/dL (28.0-37.0); MCV 81.9 fL (80.0-100.0); RBC 2.98 mil/uL (4.20-5.00); RDW 18.4 % (10.5-14.5); WBC 4.9 thou/uL (4.0-11.0)
[2019-05-21 15:27] LABS: ALBUMIN 3.1 g/dL (3.4-5.0); CALCIUM 8.9 mg/dL (8.5-10.1); PHOSPHORUS 2.3 mg/dL (2.5-4.9)
[2019-05-21 15:29] LABS: POTASSIUM 2.8 mmol/L (3.5-5.1)
--- NOTE | 2019-05-21 16:38 | NUR ---
ASSUMED CARE AT APROX 0715. PATIENT O X2. DENIES PAIN. VSS. LETHARGIC, BUT COOPERATIVE. PARTICIPATED IN THERAPY, SAT UP IN RECLINER FOR LUNCH. TOILETED PER TOILET WITH CUEING. IV FLUIDS INFUSING TO LEFT HAND. PATIENT INCONTINENT X2 THIS SHIFT. BLADDER SCANS SHOWING NO RESIDUAL. UA TO BE COLLECTED PER NEPHROLOGY. TUBE REPAIRER ROUNDED ON PATIENT TODAY PER NEW CONSULT, LABS ORDERED, RESULTS READ BACK TO PHYSICIAN, ORDERS RECEIVED TO REPLACE POTASSIUM. PO FLUIDS ENCOURAGED. FALL PRECAUTIONS IN PLACE. PATIENT'S DAUGHTER AT BEDSIDE MOST OF SHIFT. PATIENT ROUNDED ON HOURLY. TURNED Q2. WILL CONTINUE TO MONITOR.
[2019-05-21 19:30] VITALS: BP 149/77
--- NOTE | 2019-05-22 03:30 | NUR ---
assumed care at approx 1900 evening 05/21. pt lying in bed with head of bed elevated at change of shift. pt c/o intermittent nausea and therefore pt refused to take hs meds. pt with flat affect and withdrawn. pt assisted with linen change several times this night. daughter at bedside. pt given Tylenol as requested and appears to be sleeping soundly at present. bed alarm on and call light in reach. will continue to monitor.
[2019-05-22 04:31] LABS: CALCIUM 8.4 mg/dL (8.5-10.1); CREATININE 1.7 mg/dL (0.6-1.0)
[2019-05-22 04:32] LABS: POTASSIUM 2.9 mmol/L (3.5-5.1)
[2019-05-22 11:30] LABS: URINE BILIRUBIN NEGATIVE (Negative); URINE BLOOD NEGATIVE (Negative); URINE CLARITY CLEAR; URINE COLOR YELLOW; URINE GLUCOSE-RANDOM* NEGATIVE (Negative); URINE KETONES NEGATIVE (Negative); URINE LEUKOCYTES TRACE (Negative); URINE NITRITE NEGATIVE (Negative); URINE PROTEIN (DIPSTICK) NEGATIVE (Negative); URINE UROBILINOGEN 0.2 E.U./dl (0.2-1.0)
[2019-05-22 11:33] LABS: URINE CREATININE-RANDOM* <13 mg/dL; URINE SODIUM-RANDOM* 130 mmol/L
--- NOTE | 2019-05-22 12:24 | NUR ---
ASSUMED CARE AT 0700, SHIFT ASSESSMENT DONE, MEDS GIVEN, VSS. DENIES ANY PAIN, NAUSEA, VOMITING. HAD AN EPISODE OF INCONTINENECE THIS AM. UP TO THE BEDSIDE COMMODE. RECEIVING IV POTTASIUM REPLACEMENT. TOOK MEDS WITH APPLESAUCE ONE AT A TIME. WILL CONTINUE TO ASSESS AND ASSIST WITH ADLs NEEDED.
--- NOTE | 2019-05-22 16:56 | NUR ---
ASSUMED CARE OF PT AT 1245 THIS SHIFT. PT HAS BEEN COOPERATIVE, HAS DENIED ANY PAIN. PT IS CURRENTLY RESTING COMFORTABLY IN ROOM. PT HAS HAD FAMILY AT BEDSIDE, EDUCATION WAS PROVIDED. PLAN OF CARE IS TO CONTINUE TO MONITOR AT THIS TIME.
[2019-05-22 19:45] VITALS: BP 87/54
[2019-05-22 21:18] VITALS: BP 146/69
--- NOTE | 2019-05-23 01:12 | NUR ---
assumed care at approx 1900 evening 05/22. pt sitting up on bsc at change of shift with daughter in room. per FISHER QUAHOG report to this marketing copywriter pt had just vomited and daughter was with pt. daughter stated to this marketing copywriter that thought it was the 2 sugar donuts pt ate stating "Mama you had too much sugar" Zofran given as ordered with relief. pts potassium result called to LEATHER CASE FINISHER and orders recd for IV KCL to be given. pt c/o burning and crying out she couldn't take it and to turn down IV rate. presently infusing at 20ml/hr and pt seems to be tolerating well. daughter at bedside calling out multiple times before both falling asleep constantly asking to change her mothers sheets. pt given Miralax as ordered and pt appears to be sleeping at present. bed alarm on and call light in reach. will continue to monitor.
--- NOTE | 2019-05-23 05:47 | NUR ---
pt has been changed with new pads multiple times on this security shift manager. daughter stays night and calls out frequently. pt has been repositioned more than q2hrs with new pads, blankets, pillows, gown repositioned each time.
[2019-05-23 07:17] LABS: ABSOLUTE NEUTROPHILS 4.6 thou/uL (1.4-8.2); BASOPHILS 0.3 % (0.0-2.0); EOSINOPHILS 0.5 % (0.0-3.0); HEMATOCRIT 21.6 % (37.0-47.0); HEMOGLOBIN 7.4 gm/dL (12.0-15.0); LYMPHOCYTES 7.5 % (24.0-44.0); MCH 27.3 pg (26.0-34.0); MCHC 34.3 g/dL (28.0-37.0); MCV 79.7 fL (80.0-100.0); MONOCYTES 7.5 % (1.0-8.0); PLATELET COUNT 210 thou/uL (150-400); POLYS 84.2 % (36.0-66.0); RBC 2.71 mil/uL (4.20-5.00); RDW 18.9 % (10.5-14.5); WBC 5.5 thou/uL (4.0-11.0)
[2019-05-23 07:27] LABS: CALCIUM 9.3 mg/dL (8.5-10.1); CREATININE 1.6 mg/dL (0.6-1.0); MAGNESIUM 1.4 mg/dL (1.8-2.4); POTASSIUM 3.8 mmol/L (3.5-5.1)
[2019-05-23 07:52] LABS: ANISOCYTOSIS 2+; MICROCYTES 1+
[2019-05-23 08:45] VITALS: BP 147/83
--- NOTE | 2019-05-23 17:36 | NUR ---
ASSUMED CARE AT APPROX 0715. PATIENT A/O X2-3. WITHDRAWN, FLAT AFFECT. TEARFUL AT TIMES. C/O PAIN FROM BUTTOCKS. WOUND NOTED- WOUND CARE TEAM RE-CONSULTED. LOW AIRLOSS MATTRESS IN PLACE. PATIENT TURNED IN BED, REPOSITIONED Q2 HOURS. WAFFLE CUSHION WHILE PATIENT UP IN RECLINER. PATIENT C/O NAUSEA, ZOFRAN ADMINISTERED AVAILABLE. ORAL FLUIDS ENCOURAGED, IV FLUIDS DC'D PER PROVIDER. VSS, LABS IMPROVED, MG LOW -REPLACED PER ORDERS. BRIEFS CHECKED AND CHANGED Q2 WHILE OUT OF BED, PATIENT TOILETED - INCONTINENT AND CONTINENT THIS SHIFT OF STOOL AND URINE. PATIENT PARTICIPATED IN THERAPY, MET MOST OF MINUTES THIS SHIFT PER THERAPISTS. FIOR'S DAUGHTER AT BEDSIDE. FALL PRECAUTIONS IN PLACE. PATIENT REFUSED DINNER AT 1700, PATIENT'S DAUGHTER WILL ATTEMPT TO FEED HER DINNER BROUGHT IN FROM HOME. PATIENT RESTING IN ROOM, WILL CONTINUE TO MONITOR.
[2019-05-23 19:14] VITALS: BP 151/70
[2019-05-24 08:10] VITALS: BP 143/75
--- NOTE | 2019-05-24 10:33 | NUR ---
PATIENT CARE WAS ASSUMED AT 0715.PATIENT IS ALERT AND ORIENTED X 2-3.PATIENT IS RESTING IN BED, WITH DAUGHTER AT BEDSIDE.PATIENT IS HAVING SERVERAL LOOSE BMs AT A TIME.PATIENT HAS NO COMPLAINS OF PAIN AT THIS TIME.PT TAKES MEDICATIONS SLOWLY WITH APPLESAUCE.DAUGHTER WILL ENCOURAGE PT TO EAT AND DRINK.CALL LIGHT,PHONE, AND PERSONAL BELONGINGS ARE WITHIN REACH.
--- NOTE | 2019-05-24 13:48 | NUR ---
team meeting, recommendation: cont dc 9th with chcs ( pt, ot, nursing, sw ), dietary to see prior to dc. no dme needs.
[2019-05-24 19:25] VITALS: BP 139/63
--- NOTE | 2019-05-25 00:18 | NUR ---
CONTINUE TO HAVE SMALL AMOUNT OF SOFT BROWN-GREEN BM, RECTUM GETTING SORE FROM FREQUENT SMALL BM, CREAM APPLIED, REFUSED HS MEDS TONIGHT, HAS BEEN TURNED/REPOSITIONED WITH ASSIST, PERICARE PROVIDED, PILLOW BETWEEN LEGS, ON ROOM AIR, DAUGHTER AT BEDSIDE, ON ROOM AIR, MEDS WITH APPLESAUCE, ENC. TO DRINK MORE WATER TO HELP WITH HER KIDNEYS, PT RESTING GOOD, CALL LIGHT WITHIN REACHED, MONITORED.
[2019-05-25 08:00] VITALS: BP 134/72
[2019-05-25 08:06] VITALS: BP 130/57
--- NOTE | 2019-05-25 13:35 | NUR ---
ASSUMED CARE OF PATIENT AT APPROX 0715. PATIENT A/O X4. FLAT AFFECT, TEARFUL AT TIMES. VSS. INCONTINENT OF URINE, PATIENT CLEANED AND CHANGED. NO BM THIS MORNING. VASELINE APPLIED TO SKIN, BARRIER CREAM APPLIED TO SACRAL BREAKDOWN. YANET MATTRESS IN PLACE. PATIENT TURNED Q2H AND CHECKED FREQUENTLY FOR INCONTINENCE, REFUSING TO AMBULATE TO TOILET OR USE BSC WITH NURSING STAFF. BRIEFS IN PLACE WHEN OUT OF BED AND WORKING WITH THERAPY, PARTICIPATED IN AM PT. PATIENT TOOK AM MEDS WHOLE IN APPLESAUCE ONE AT A TIME, REFUSED AFTERNOON RITALIN. REFUSED AFTERNOON GROUP THERAPY. PATIENT RESTING IN RECLINER, LEGS ELEVATED, HEELS OFFLOADED. WAFFLE CUSHION IN RECLINER. PATIENT RESTING WITH EYES CLOSED. WILL CONTINUE HOURLY ROUNDS. FALL PRECAUTIONS IN PLACE.
[2019-05-25 19:20] VITALS: BP 132/69
--- NOTE | 2019-05-25 22:20 | NUR ---
ASSUMED CARE OF PATIENT AT 1930. PATIENT A/O X4.HAS FLAT AFFECT. DEPRESSED. OFFERED SUPPORTIVE CARE AND PRAYED WITH PT. REASSESSMENT PER CHART. EXTERNAL CATH IN PLACED FOR COMFORT. DAUGHTER SAID PT HAD COUPLE LOOSE STOOLS YESTERDAY, AND BM THIS AM. HAS SMEAR SOFT BM WHEN I TURNED HER. VASELINE APPLIED TO SKIN, BARRIER CREAM APPLIED TO SACRAL BREAKDOWN. YANET MATTRESS IN PLACE. WEEKLY PICTURE TAKEN. PATIENT TURNED Q2H AND CHECKED FREQUENTLY FOR INCONTINENCE. CRYING AT TIME FOR SORE ON BOTTOM, NO BREAK DOWN NOTED. PRN TYLENOL GIVEN FOR GENERALIZED PAIN. EVENING MEDS GIVEN WITH APPLE SAUCE AND WATER. ATTEMPTED TO DO ORAL CARE. BUT PT REFUSED. POOR MOUTH HYGIENE, PT REFUSED TO REMOVED DENTURE AT NIGHT. PATIENT RESTING WITH EYES CLOSED. WILL CONTINUE HOURLY ROUNDS. FALL PRECAUTIONS IN PLACE. DAUGHTER AT BEDSIDE.
[2019-05-26 05:25] LABS: EOSINOPHILS 0.6 % (0.0-3.0); HEMOGLOBIN 6.9 gm/dL (12.0-15.0); PLATELET COUNT 191 thou/uL (150-400)
[2019-05-26 05:27] LABS: ABSOLUTE NEUTROPHILS 3.8 thou/uL (1.4-8.2); BASOPHILS 0.3 % (0.0-2.0); HEMATOCRIT 20.1 % (37.0-47.0); LYMPHOCYTES 9.5 % (24.0-44.0); MCH 27.6 pg (26.0-34.0); MCHC 34.3 g/dL (28.0-37.0); MCV 80.4 fL (80.0-100.0); MONOCYTES 7.8 % (1.0-8.0); POLYS 81.8 % (36.0-66.0); RDW 19.2 % (10.5-14.5); WBC 4.7 thou/uL (4.0-11.0)
[2019-05-26 05:38] LABS: ALBUMIN 2.6 g/dL (3.4-5.0); CALCIUM 8.9 mg/dL (8.5-10.1); CREATININE 2.3 mg/dL (0.6-1.0); MAGNESIUM 1.8 mg/dL (1.8-2.4); POTASSIUM 3.6 mmol/L (3.5-5.1); TOTAL BILIRUBIN 0.4 mg/dL (<0.1-1.0); TOTAL PROTEIN 5.6 g/dL (6.4-8.2)
[2019-05-26 07:20] VITALS: BP 128/61
--- NOTE | 2019-05-26 09:40 | NUR ---
Nutrition: Consulted to educate daughter, discuss portions, and answer any questions. Pt w/ planned d/c tomorrow, 05/27. Met with daughter this AM. From observation and discussion w/ other therapy staff, encouraged daughter to at least offer 2-3 food items at meals and let pt eat what she wants. Discussed not forcing it or presenting too many items as this could overwhelm her or cause her to shut down. Goal to avoid negative relationship/fear around food. Discussed trying to see if pt will eat 1-2 items q 2-3 hrs since her appetite is so small and let this be OK. Supplement coupons provided and energy dense kcal, high protein foods discussed to encourage smaller portions and optimize intake for the bites pt does take. Unsure of full retention, but reiterated numerous times to get point across. Daughter thankful for RD info.
--- NOTE | 2019-05-26 13:50 | NUR ---
cm consulted for hospice possible per pt request. cm visited with pt at bedside who stated " yes hospice is what i want. "/pt cm asked if ok to speak with daughter niraj rt topic. dr mark is on his way for visit and cm spoke with daughter via phone call, education on palliative vs hospice in home " ok i am on my way back, no mom did not tell me this today but step dad just called and told me, on way back to meet and talk"/niraj. will cont following as needed for dc needs.
--- NOTE | 2019-05-26 19:31 | NUR ---
ASSUMED CARE AT APPROX 0715. PATIENT ALERT. ORIENTED TO PERSON, SITUATION, PLACE. DENIES PAIN. REPORTED FEELING TIRED THIS AM. LABS REVIEWED WITH PROVIDER, PATIENT STATED SHE REFUSED BLOOD TRANSFUSION. PATIENT REFUSED MEDICATONS, EDUCATED PATIENT AND DAUGHTER ON MEDICATIONS, INDICATIONS, AND CONSEQUENCES OF REFUSING MEDICATIONS, PATIENT STATED "I DON'T CARE, I SAID NO." PATIENT EDUCATED ON CODE STATUS AND WHAT INTERVENTIONS ARE PART OF BEING A FULL CODE. PATIENT STATED "I DON'T WANT ANY OF THAT." PHYSICIAN NOTIFIED, PALLIATIVE CARE CONSULT CALLED TO DR. HERNANDEZ. DR. HERNANDEZ ROUNDED ON PATIENT AND HER DAUGHTER, DISCUSSED OPTIONS FOR HOME. PATIENT AGREED TO INITIATE DNR BOTH IN AND OUT OF HOSPITAL. PATIENT REFUSED THERAPY SESSIONS. PATIENT TURNED Q2 AND CHECKED FOR INCONTINENCE, REFUSED TOILETING. MIRIAN-CARE PROVIDED, WOUND CARE PROVIDED. FALL PRECAUTIONS IN PLACE. HEELS FLOATED ON PILLOWS. PATIENT'S DAUGHTER AT BEDSIDE. PATIENT REFUSES TO USE CALL LIGHT- DAUGHTER CALLS FOR PATIENT AT TIMES. PATIENT ROUNDED ON HOURLY. RESTING IN BED AT CHANGE OF SHIFT.
[2019-05-26 19:45] VITALS: BP 121/66
--- NOTE | 2019-05-27 02:44 | NUR ---
ASSUMED CARE FROM PREVIOUS DAYS SHIFT PT, DAUGHTER AT BEDSIDE PT VOICED REFUSAL OF HS MEDICATION, PT APPEARS CALM COOPERATIVE AND SMILING AT TIMES. PT INCONITNENT OF URINE AND STOOL, TURNED EVERY 2 HOURS TO PREVENT BREAKDOWN, BARRIER CREAM APPLIED TO MIRIAN AREA. DISCUSSED PLAN OF CARE AND PT AND DAUGHTER AGREEABLE. PT RRESTED WELL THROUGHOUT HOURLY ROUNDS.
[2019-05-27] MEDS ORDERED: PROTONIX 20 MG20 M1 PO (08:29)
[2019-05-27 09:18] VITALS: BP 148/77
--- NOTE | 2019-05-27 11:00 | NUR ---
cm visited with pt at bedside up in recliner and niraj rt senior blue book and hospice needs outside the hospital. daughter resist and stated " as long as she drinks and eats some that is life sustain there."/niraj. cont with active listening during visit. dc home today with chcs, pt daughter asked for nursing manage of [facility], cm provided her assistance if had question of needs to pass on, daughter refused and stated " i will talk with later if she is not available today. thank you"/niraj.
[2019-05-27 11:06] VITALS: BP 148/77
[2019-05-27] MEDS ORDERED: REMERON 30 MG T30 M1 PO (13:08)
--- NOTE | 2019-05-27 13:08 | NUR ---
DISCHARGE ORDERS COMPLETED. PATIENT DISCHARGING TO HOME WITH [facility]. TYREE, WITH [facility] INTAKE NOTIFIED OF COMPLETED ORDERS AND WILL FACILITATE PATIENTS HOME HEALTH NEEDS. UNIT CM AWARE.
[2019-05-27] MEDS ORDERED: ZOFRAN ODT4 MG DISSOLVE (13:32)
--- NOTE | 2019-05-27 14:30 | NUR ---
ASSUMED CARE OF PATIENT AT 0700. PATIENT A/O X4.HAS FLAT AFFECT. DEPRESSED. OFFERED SUPPORTIVE CARE AND PRAYED WITH PT. REASSESSMENT PER CHART. ZGUARD APPLIED TO SACRAL BREAKDOWN. DISCHARGE PICTURE TAKEN. OFFERED SUPPORTIVE CARE. DISCHARGE INSTRUCTION WENT OVER WITH PT'S DAUGHTER, SEO MARKETING SPECIALIST. REMERON, PROTONIX AND ZOFRAN GIVEN. HGB 6.9 FROM LAST CHECK, DONTRELL D/C IRON SINCE SHE SAID IT MAY CAUSE PT'S NAUSEA. ENCOURAGED DAUGHTER TO ENCOURAGE PT TO EAT FOOD IN HIGH IRON. PT SEEMS ABLE TO FOLLOW WELL WITH DISCHARGE INSTRUCTION. HANDOUTS GIVEN ON PT'S MEDICAL CONDITION. TRANSPORTATION CALL. PT LEFT UNIT AT THIS MOMENT WILL ALL HER BELONGINGS.
== END 2019-05-27 14:35 | disposition home health service (06) | DRG 64 ==
LOC: ENTRNSPT 05-27 14:03 → EDTRNSPTSTS 05-27 14:07
PROVIDERS: Hospitalist; Internal Medicine; Internal Medicine Nephrology; Nurse Practitioner; ADMIT Physical Medicine & Rehabilitation
DX: I63.9 Cerebral infarction, unspecified (principal); L89.153 Pressure ulcer of sacral region, stage 3; G92 Toxic encephalopathy; E43 Unspecified severe protein-calorie malnutrition; I50.32 Chronic diastolic (congestive) heart failure; I13.0 Hypertensive heart and chronic kidney disease with heart failure and stage 1 through stage 4 chronic kidney disease, or unspecified chronic kidney disease; N17.9 Acute kidney failure, unspecified; N18.4 Chronic kidney disease, stage 4 (severe); G81.91 Hemiplegia, unspecified affecting right dominant side; R53.1 Weakness; F01.50 Vascular dementia, unspecified severity, without behavioral disturbance, psychotic disturbance, mood disturbance, and anxiety; F32.9 Major depressive disorder, single episode, unspecified; D72.829 Elevated white blood cell count, unspecified; R13.10 Dysphagia, unspecified; R53.81 Other malaise; G43.909 Migraine, unspecified, not intractable, without status migrainosus; E78.5 Hyperlipidemia, unspecified; I48.91 Unspecified atrial fibrillation; K21.9 Gastro-esophageal reflux disease without esophagitis; Z66 Do not resuscitate; F41.9 Anxiety disorder, unspecified; E87.6 Hypokalemia; E83.42 Hypomagnesemia; K59.00 Constipation, unspecified; E05.90 Thyrotoxicosis, unspecified without thyrotoxic crisis or storm; D50.9 Iron deficiency anemia, unspecified; R47.01 Aphasia; I27.20 Pulmonary hypertension, unspecified; S80.211A Abrasion, right knee, initial encounter; X58.XXXA Exposure to other specified factors, initial encounter; Z88.8 Allergy status to other drugs, medicaments and biological substances; Z91.040 Latex allergy status; Z79.899 Other long term (current) drug therapy; Z79.82 Long term (current) use of aspirin; Z68.22 Body mass index [BMI] 22.0-22.9, adult; Z90.710 Acquired absence of both cervix and uterus; Z98.41 Cataract extraction status, right eye; Z98.42 Cataract extraction status, left eye; Z88.6 Allergy status to analgesic agent; Z79.01 Long term (current) use of anticoagulants; Y93.89 Activity, other specified; Y92.89 Other specified places as the place of occurrence of the external cause; Y99.8 Other external cause status
CPT/HCPCS: 10112

== ENCOUNTER 2019-06-23 13:24 | Inpatient (IN) | payer OTHER ==
[~2019-06-23] VITALS: Ht 162.6 cm; Wt 49.0 kg
[~2019-06-23 13:24] MED LIST changes: +PROTONIX 20 MG20 M1 PO; +ZOFRAN ODT4 MG DISSOLVE
[2019-06-23 13:25] VITALS: BP 146/80
[2019-06-23] MEDS ORDERED: KEFLEX500 M1 PO (13:38)
[2019-06-23] MEDS ORDERED: IRON325 PO (13:44)
[2019-06-23] MEDS ORDERED: HYDRALAZINE 2525 MG PO (13:45)
[2019-06-23] MEDS ORDERED: COLACE100 MG PO (13:46)
[2019-06-23] MEDS ORDERED: TOPROL XL25 MG PO (13:47)
[2019-06-23 13:54] LABS: ABSOLUTE NEUTROPHILS 3.1 thou/uL (1.4-8.2); BASOPHILS 0.4 % (0.0-2.0); EOSINOPHILS 0.6 % (0.0-3.0); HEMATOCRIT 26.6 % (37.0-47.0); HEMOGLOBIN 8.8 gm/dL (12.0-15.0); LYMPHOCYTES 21.6 % (24.0-44.0); MCH 27.5 pg (26.0-34.0); MCHC 33.2 g/dL (28.0-37.0); MCV 82.6 fL (80.0-100.0); MONOCYTES 9.6 % (1.0-8.0); PLATELET COUNT 286 thou/uL (150-400); POLYS 67.8 % (36.0-66.0); RBC 3.22 mil/uL (4.20-5.00); RDW 18.2 % (10.5-14.5); WBC 4.6 thou/uL (4.0-11.0)
[2019-06-23 14:01] LABS: ANION GAP 9 mmol/L (7-16); BUN 30 mg/dL (7-18); CALCIUM 10.4 mg/dL (8.5-10.1); CHLORIDE 98 mmol/L (98-107); CO2 31 mmol/L (21-32); CREATININE 2.9 mg/dL (0.6-1.0); GLUCOSE 137 mg/dL (74-106); SODIUM 138 mmol/L (136-145)
[2019-06-23 14:11] LABS: ALBUMIN 3.3 g/dL (3.4-5.0); LIPASE 149 U/L (73-393); SGOT 49 U/L (15-37); SGPT 69 U/L (30-65); TOTAL BILIRUBIN 0.4 mg/dL (<0.1-1.0); TOTAL PROTEIN 6.9 g/dL (6.4-8.2); TROPONIN-I <0.06 ng/mL (<0.06)
[2019-06-23 14:36] LABS: URINE BILIRUBIN NEGATIVE (Negative); URINE BLOOD NEGATIVE (Negative); URINE CLARITY CLEAR; URINE COLOR YELLOW; URINE GLUCOSE-RANDOM* NEGATIVE (Negative); URINE KETONES NEGATIVE (Negative); URINE LEUKOCYTES-REFLEX TRACE (Negative); URINE NITRITE-REFLEX NEGATIVE (Negative); URINE PROTEIN (DIPSTICK) 1+ (Negative); URINE UROBILINOGEN 0.2 E.U./dl (0.2-1.0)
[2019-06-23 14:46] LABS: SQUAMOUS 0-3 Few /LPF (0-3)
[2019-06-23 14:47] LABS: BACTERIA-REFLEX >30 Many /HPF (None Seen); CASTS None Seen /LPF (None Seen); CRYSTALS None Seen /LPF (None Seen); URINE RBC None Seen /HPF (0-2); URINE WBC-REFLEX 0-5 Rare /HPF (0-5)
[2019-06-23 15:56] VITALS: BP 155/74
[2019-06-23] MEDS ORDERED: DILTIAZEM HCL90 MG PO (16:07)
[2019-06-23 18:37] LABS: ALBUMIN 3.5 g/dL (3.4-5.0); TOTAL PROTEIN 6.5 g/dL (6.4-8.2)
[2019-06-23 18:47] VITALS: BP 147/77
--- NOTE | 2019-06-23 18:51 | NUR ---
ARRIVED TO FLOOR FROM ED AT 1810 VIA CART. AWAKE, ALERT AND ORIENTED X 4. DENIED PAIN. FLAT AFFECT. ADMISSION HISTORY COMPLETED. FALL PRECAUTIONS IN PLACE. IVF'S STARTED ORDERED. VITAL SIGNS STABLE.
[2019-06-23 19:35] VITALS: BP 148/74
[2019-06-23 23:55] VITALS: BP 137/79
--- NOTE | 2019-06-24 03:17 | NUR ---
ASSUMED CARE OF PT AT 1900HRS. PT IS AOX4 AND DAUGHTER IS AT BEDSIDE. TAP WATER ENEMA WAS ADMINISTERED (2500ML) AND SMALL, DARK BM NOTED. PT REPORTED SOME PAIN AND WAS TREATED WITH PRN PAIN MEDS. NO NAUSEA REPORTED THIS SHIFT. FALL PRECAUTION IN PLACE. PT TURNED Q2-3 HOURS. SMALL SKIN TEAR NOTED IN THE SACRAL REGION. PHOTO TAKEN. VSS AND NO S/S OF ACUTE DISTRESS. WILL CONTINUE TO MONITOR.
[2019-06-24 05:08] LABS: CALCIUM 9.7 mg/dL (8.5-10.1); CREATININE 2.3 mg/dL (0.6-1.0); MAGNESIUM 2.3 mg/dL (1.8-2.4); POTASSIUM 3.7 mmol/L (3.5-5.1)
[2019-06-24 05:40] VITALS: BP 142/84
[2019-06-24 05:46] LABS: HEMATOCRIT 26.4 % (37.0-47.0); HEMOGLOBIN 8.8 gm/dL (12.0-15.0); MCH 27.8 pg (26.0-34.0); MCHC 33.5 g/dL (28.0-37.0); MCV 82.9 fL (80.0-100.0); RBC 3.18 mil/uL (4.20-5.00); RDW 17.8 % (10.5-14.5); WBC 5.6 thou/uL (4.0-11.0)
[2019-06-24 08:03] VITALS: BP 123/73
--- NOTE | 2019-06-24 12:04 | NUR ---
PT ADMITTED RELATED TO CONSTIPATION, KEE, ANEMIA. CM REVIEWED CHART AND SPOKE WITH CARE TEAM. CM MET WITH PT AND DTR AT BEDSIDE THIS DAY. PT IS A&O X4. CM ROLE INTRODCUED. PT'S DTR INDICATED THAT PT HAD BEEN USING A FWW TO ASSIST WITH MOBILITY AGRICULTURAL AND FORESTRY SUPERVISOR. PT'S DTR INDICATED THAT SHE HAS A WHEELCHAIR FOR USE AT HOME WELL AND THAT SHE HAD USED IT TO TAKE PT TO APPOINTMENTS. DTR INDICATED THAT SHE STAYS WITH PT AND THAT BETWEEN HER, HER SPOUSE, AND PT'S SISTER THEY PROVIDE 24/7 SUPERVISION. DTR INDICATED SHE HAD BEEN ON SERVICE WITH [facility] AGRICULTURAL AND FORESTRY SUPERVISOR. DTR INDICATED THAT THEY ANTICIPATE PT RETURNING HOME ONCE MEDICALLY STABLE.
--- NOTE | 2019-06-24 14:40 | EKG ---
[address] [place] [address] ELECTROCARDIOGRAM REPORT Name: HARLEEN ALVARES Room #: 454-P ADM IN M.R.#: [id number] ������������������ Admission: 06/23/19 ������������������ Attend Phys: Edwin Cornelius MD Discharge: ������������������ Date of : 37 Report #: [id number] ����������������������������������������������������������������� [id number] THIS REPORT FOR: //name// [facility] ED Test Date: 2019-06-23 Test Time: 13:37:26 Pat Name: HARLEEN ALVARES Department: Room: [facility] Gender: F Application Specialist: WILI : [id number] Requested By: Olamide Trimble Order Number: [id number] MD: Hany Driscoll Measurements Intervals Delta Rate: 97 P: 11 MO: 185 QRS: 14 QRSD: 93 T: 158 QT: 362 QTc: 460 Interpretive Statements Sinus rhythm Nonspecific ST segment abnormalities Compared to ECG 05/12/2019 15:44:50 No significant change Electronically Signed On 06-24-2019 14:40:08 CDT by Hany Driscoll [email or web address] ��������������������������������������������� <ELECTRONICALLY SIGNED> ���������������������������������������� By: Hany Driscoll MD ��������������������������������������������� 06/24/19 1440 1337 [id number] Hany Driscoll MD /[facility]
[2019-06-24 14:52] VITALS: BP 121/63
--- NOTE | 2019-06-24 16:05 | NUR ---
CARE TEAM INDICATED THAT PT WILL LIKELY REMAIN HOSPITILIZED HERE OVER THE WEEKEND. CM TO FOLLOW INDICATED WITH DC PLANNING.
--- NOTE | 2019-06-24 18:04 | NUR ---
PT VS STABLE THROUGHOUT SHIFT. PT C/O PAIN THROUGHOUT SHIFT, MEDICATION SEEMED TO HAVE MINIMAL IMPACT. PT HAD SOME SMALL BM'S BUT REMAINS EXTREMELY CONSTIPATED. PT GIVEN ENEMA AND STOOL SEEMS TO BE SOFT HOWEVER SHE HAS NOT BEEN ABLE TO HAVE SIGNIFICANT BOWEL MOVEMENT. PT'S FAMILY AT BEDSIDE THROUGHOUT SHIFT. PT RESTING.
--- NOTE | 2019-06-24 18:28 | NUR ---
PT DID NOT DRINK AND OF HER SUPPLEMENT AT ANY MEAL.
[2019-06-24 19:35] VITALS: BP 116/65
[2019-06-24 20:12] VITALS: BP 140/70
--- NOTE | 2019-06-25 03:07 | NUR ---
PATIENT AOX3 PATIENT YELLS WHEN IN PAIN OR WHEN NEEDS TO BE CHANGED.PAIN CONTROLLED THIS SHIFT. PATIENT HAD SEVERAL BOWEL MOVEMENT THIS SHIFT.PATIENT HAD A HUGE BOWEL MOVEMENT AT 2300. PATIENT BOWELS ARE HARD AND BROWN IN COLOR.PATIENT INCONTIENT THIS SHIFT, PERICARE AND BARRIER CREAM APPLIED NEEDED. BOWEL SOUNDS PRESENT. PATIENT ABD IS HARD.PATIENT TURNED Q 2 HOURS. DAUGHTER AT BEDSIDE. PATIENT TURNED Q 2 HOURS. PATIENT IN BED ASLEEP AT THIS TIME BREATHING REGULAR AND UNLABOURED.
[2019-06-25 04:05] VITALS: BP 136/63
[2019-06-25 04:58] LABS: HEMATOCRIT 24.2 % (37.0-47.0); HEMOGLOBIN 7.9 gm/dL (12.0-15.0); MCH 27.3 pg (26.0-34.0); MCHC 32.4 g/dL (28.0-37.0); MCV 84.3 fL (80.0-100.0); RBC 2.88 mil/uL (4.20-5.00); RDW 18.2 % (10.5-14.5); WBC 7.8 thou/uL (4.0-11.0)
[2019-06-25 05:11] LABS: CALCIUM 9.1 mg/dL (8.5-10.1); CREATININE 2.2 mg/dL (0.6-1.0); POTASSIUM 3.3 mmol/L (3.5-5.1)
[2019-06-25 08:10] VITALS: BP 125/65
--- NOTE | 2019-06-25 12:20 | NUR ---
Received awake on bed. Due medications given as prescribed- medications crushed and mixed with apple sauce. On room air. Pt complained of nausea- due PRN medication given as prescribed. Pt incontinent B/B, checked regularly and pad changed as needed. Pt turned regularly. With SL at R Hand, NS at 100cc/hr infusing well at L AC. With daughter at bedside. With R + L sided body weakness- Assisted in ADLs. Falls risk- falls bundle in place. Pt encouraged to eat and drink, medications taken with apple sauce and prune juice.
[2019-06-25 16:25] VITALS: BP 123/59
[2019-06-25 19:55] VITALS: BP 101/50
--- NOTE | 2019-06-26 01:58 | NUR ---
PATIENT AOX3 MAKES NEEDS KNOWN. PATIENT HAS ACTIVE BOWEL SOUNDS. ABD SOFT AND FLAT. PATIENT INCONTIENT THIS SHIFT PERICARE AND BARRIER CREAM APPLIED NEEDED. PAIN CONTROLLED THIS SHIFT.PATIENT ENCOURAGED SNACKS AND FLUIDS. PRUNE JUICE OFFERED. PATIENT HAS DAUGHTER AT BED SIDE. PATIENT IN BED ASLEEP AT THIS TIME BREATHING REGULAR AND UNLABOURED.
[2019-06-26 04:36] VITALS: BP 113/60
[2019-06-26 05:40] LABS: HEMATOCRIT 23.6 % (37.0-47.0); HEMOGLOBIN 7.8 gm/dL (12.0-15.0); MCH 27.4 pg (26.0-34.0); MCHC 32.8 g/dL (28.0-37.0); MCV 83.6 fL (80.0-100.0); RBC 2.83 mil/uL (4.20-5.00); WBC 6.1 thou/uL (4.0-11.0)
[2019-06-26 05:56] LABS: CALCIUM 9.2 mg/dL (8.5-10.1); CREATININE 2.2 mg/dL (0.6-1.0); POTASSIUM 3.8 mmol/L (3.5-5.1)
[2019-06-26 07:34] VITALS: BP 142/70
--- NOTE | 2019-06-26 15:20 | NUR ---
PT A&O TO SELF, VSS, NO APPARENT PAIN. PATIENT TURNED Q2 HOURS, BED BATH GIVEN, PATIENT EATING MORE TODAY, AT LEAST 50%OF EACH MEAL. MEDICAITON AND FLUIDS GIVEN ORDERED. PATIENT HAS POSITIVE URINE CULTURES, DOCTOR AWARE. DAUGHTER AT BEDSIDE, WILL CONTINUE TO MONITOR.
[2019-06-26 15:56] VITALS: BP 118/51
[2019-06-26] MEDS ORDERED: PROTONIX 20 MG20 M1 PO (16:02)
[2019-06-26 20:07] VITALS: BP 145/70
--- NOTE | 2019-06-27 04:39 | NUR ---
PATIENT ALERT AND ORIENTED X4. UP TO BSC WITH TWO ASSIST FOR BM. IVF INFUSING W/O COMPLICATION. DAUGHTER AT BEDSIDE DURING THE NIGHT. INCONTINENT OF B/B AT TIMES. TAKING MEDICATION PO. C/O PAIN AND MEDICATED X1 WITH GOOD RELIEF. LARGE LIQUID BM. RESTING QUIETLY.
[2019-06-27 06:07] LABS: HEMATOCRIT 22.4 % (37.0-47.0); HEMOGLOBIN 7.4 gm/dL (12.0-15.0); MCH 27.4 pg (26.0-34.0); MCHC 33.2 g/dL (28.0-37.0); MCV 82.6 fL (80.0-100.0); RBC 2.71 mil/uL (4.20-5.00); RDW 17.9 % (10.5-14.5)
[2019-06-27 06:24] LABS: CALCIUM 8.8 mg/dL (8.5-10.1); MAGNESIUM 1.9 mg/dL (1.8-2.4); POTASSIUM 3.3 mmol/L (3.5-5.1)
[2019-06-27 07:35] VITALS: BP 129/59
--- NOTE | 2019-06-27 10:51 | NUR ---
WOUND CONSULT; THE PATIENT IS KNOW TO ME FROM A PREVIOUS ADMISSION. THE PATIENT IS CONFUSED TODAY. CANNOT ANWER QUESTIONS BUT RESPONS TO REQUEST TO TURN. THE PATIENT IS INCONTINENT OF URINE. A STAGE 2 WOUND WAS IDENTIFIED TO THE COXXYX. THE DRAINAGE IS UKNOWN DUE TO COPIOUS URINE. REDDENED, BRUISED OPEN AREA. RECOMMENDATION; A CLARKE CATHETER. USE ZGUARD TO THIS AREA FOR NOW. DISCUSSED WITH SUMAYA
[2019-06-27] MEDS ORDERED: REMERON15 MG PO (10:54)
[2019-06-27] MEDS ORDERED: PACERONE 200 M200 M1 PO (10:54)
[2019-06-27] MEDS ORDERED: ZOLOFT50 MG PO (10:55)
[2019-06-27] MEDS ORDERED: FLOMAX0.4 MG PO (10:55)
[2019-06-27] MEDS ORDERED: XANAX 0.25 MG0.25 MG PO (10:55)
[2019-06-27] MEDS ORDERED: DIOVAN320 MG PO (10:55)
--- NOTE | 2019-06-27 13:19 | NUR ---
ASSUMED CARE AT 0700, SHIFT ASSESSMENT DONE, MEDS GIVEN WITH APPLESAUCE, VSS. A&O TO SELF AND SITUATION. DAUGHTER AT THE BEDSIDE. ON IV FLUIDS. DENIES ANY PAIN, NAUSEA, VOMITING. WILL CONTINUE TO ASSESS AND ASSIST WITH ADLs NEEDED.
[2019-06-27 14:24] VITALS: BP 127/58
--- NOTE | 2019-06-27 15:32 | NUR ---
CARE TEAM INDICATED THAT PT WILL LIKELY BE MEDICALLY STABLE TO DC HOME TOMORROW. 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 CM INFORMED PT AND DTR AND ASKED IF THEY WANTED TO PICK ANOTHER PROVIDER. CM PROVIDED LIST OF PROVIDERS FOR THEM TO REVIEW. CM TO FOLLOW INDICATED WITH DC PLANNING.
[2019-06-27 19:57] VITALS: BP 153/78
--- NOTE | 2019-06-28 04:06 | NUR ---
ASSUMED CARE OF PATIENT AT 1900. VSS, AFEBRILE. DENIES PAIN. REFUSES STOOL SOFTENERS. DAUGHTER AT BEDSIDE. TURNED Q2. ANTICIPATING DC TODAY. PROGRESSING WELL.
[2019-06-28 04:38] VITALS: BP 136/82
[2019-06-28 08:02] VITALS: BP 154/82
[2019-06-28 09:23] LABS: HEMATOCRIT 25.5 % (37.0-47.0); HEMOGLOBIN 8.7 gm/dL (12.0-15.0); MCH 27.8 pg (26.0-34.0); MCHC 33.9 g/dL (28.0-37.0); MCV 82.1 fL (80.0-100.0); RBC 3.11 mil/uL (4.20-5.00); WBC 7.5 thou/uL (4.0-11.0)
--- NOTE | 2019-06-28 12:09 | NUR ---
PT A&OX4, VSS, DENIES PAIN. PATIENT REFUSED STOOL SOFTENERS TODAY. PATIENT UP TO RECLINER, DAUGHTER AT BEDSIDE. WILL CONTINUE TO MONITOR.
[2019-06-28 16:45] VITALS: BP 115/63
[2019-06-28 18:18] VITALS: BP 115/63
--- NOTE | 2019-06-29 10:51 | NUR ---
PT DISCHARGED YESTERDAY 06/28 TO HOME WITH [facility] FAXED DC ORDERS/SUMMARY AND SPOKE WITH TYREE IN INTAKE SHE RECEIVED DC ORDERS AND WILL NOTIFY PT TIME OF VISITS. CASE CLOSED
== END 2019-06-28 18:45 | disposition home health service (06) | DRG 682 ==
LOC: ER 13:24 → EROBS 15:48 → 4W 15:48
PROVIDERS: Physician Assistant; ADMIT Internal Medicine
DX: N17.9 Acute kidney failure, unspecified (principal); E43 Unspecified severe protein-calorie malnutrition; I13.0 Hypertensive heart and chronic kidney disease with heart failure and stage 1 through stage 4 chronic kidney disease, or unspecified chronic kidney disease; I50.32 Chronic diastolic (congestive) heart failure; I69.354 Hemiplegia and hemiparesis following cerebral infarction affecting left non-dominant side; Z68.1 Body mass index [BMI] 19.9 or less, adult; Z66 Do not resuscitate; R62.7 Adult failure to thrive; K59.09 Other constipation; N18.3 Chronic kidney disease, stage 3 (moderate); E86.0 Dehydration; D64.9 Anemia, unspecified; K86.89 Other specified diseases of pancreas; D63.8 Anemia in other chronic diseases classified elsewhere; E87.6 Hypokalemia; F41.9 Anxiety disorder, unspecified; I48.91 Unspecified atrial fibrillation; E78.5 Hyperlipidemia, unspecified; I25.2 Old myocardial infarction; Z90.710 Acquired absence of both cervix and uterus; Z85.42 Personal history of malignant neoplasm of other parts of uterus; Z87.891 Personal history of nicotine dependence; Z79.899 Other long term (current) drug therapy; Z79.01 Long term (current) use of anticoagulants; Z88.5 Allergy status to narcotic agent; Z88.8 Allergy status to other drugs, medicaments and biological substances; Z91.041 Radiographic dye allergy status; Z91.040 Latex allergy status
CPT/HCPCS: 10040